=== PATIENT | female | born 1955 | race Caucasian/White ===

== ENCOUNTER 2016-11-06 18:39 | Inpatient (IN) ==
[2016-11-06] MEDS ORDERED: *HR* Dextrose 50 % in Water (Syg) 50 ML SYRINGE IVP ONE (18:46)
[2016-11-06] MEDS ORDERED: *HR* Dextrose 50 % in Water (Syg) 50 ML SYRINGE ONE (18:47)
--- NOTE | 2016-11-06 18:50 | Emergency Department Note ---
Disposition Clinical Impression: Hypoglycemia associated with diabetes Concussion Qualifiers: Encounter type: initial encounter Loss of consciousness presence/duration: with LOC of 30 min or less Qualified Code(s): S06.0X1A - Concussion with loss of consciousness of 30 minutes or less, initial encounter Disposition: Admitted As Inpatient Forms: Work/School Release, ED Satisfaction Letter Altered Mental Status HPI - General Chief Complaint: ED General Medical Stated Complaint: Hypoglycemic Time Seen by Provider: 11/06/16 18:40 Source: EMS Mode of arrival: EMS Limitations: other Nursing Notes Reviewed: Yes Vital Signs Reviewed: Yes - History of Present Illness HPI Narrative: Patient is a 61-year-old female who presents with hypoglycemia. A neighbor was checking on her she was unconscious and fell on the floor. She complains of occipital pain of her scalp otherwise no other complaints. 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 confirmed by: caregiver Pain Severity: moderate Consistency of Symptoms: constant Context: trauma Associated symptoms: Denies: chest pain, cough, fever, seizure - Related Data Home Medications Medication Instructions Recorded Confirmed Albuterol Sulfate [Proair Hfa] 2 puff IH Q6H PRN 02/11/16 04/20/16 Atorvastatin [Lipitor] 40 mg PO HS 02/11/16 04/20/16 Budesonide/Formoterol 160/4.5 2 puff IH BIDR 02/11/16 04/20/16 [Symbicort 160/4.5] Cholecalciferol (D-3) [Vitamin D] 2,000 unit PO DAILY 02/11/16 04/20/16 Collagenase Oint [Santyl] 1 appl TP DAILY 02/11/16 02/11/16 Diltiazem HCl [Tiazac] 360 mg PO DAILY 02/11/16 04/20/16 Escitalopram [Lexapro] 20 mg PO DAILY 02/11/16 04/20/16 Gabapentin [Neurontin] 200 mg PO BID 02/11/16 04/20/16 Gentamicin Oint [Garamycin] 1 appl TP DAILY 02/11/16 02/11/16 Insulin ASPART [Novolog Flexpen] 10 - 24 unit SQ TIDAC 02/11/16 04/20/16 Insulin Glargine,Hum.rec.anlog 30 unit SQ HS 02/11/16 04/20/16 [Lantus Solostar] Insulin Glargine,Hum.rec.anlog 40 unit SQ QAM 02/11/16 04/20/16 [Lantus Solostar] Lamotrigine [Lamictal] 50 mg PO QAM 02/11/16 04/20/16 Losartan Potassium [Cozaar] 100 mg PO DAILY 02/11/16 04/20/16 Paricalcitol [Zemplar] 2 mcg PO DAILY 02/11/16 04/20/16 Cetirizine HCl [Zyrtec] 10 mg PO DAILY 04/20/16 04/20/16 Ferrous Sulfate 325 mg PO BIDWM 04/20/16 04/20/16 Furosemide [Lasix] 40 mg PO BID 04/20/16 04/20/16 Lamotrigine [Lamictal] 25 mg PO HS 04/20/16 04/20/16 Perphenazine 4 mg PO HS 04/20/16 04/20/16 Previous Rx's Medication Instructions Recorded Apixaban [Eliquis] 1 tab PO BID #60 tablet 06/20/16 Albuterol Sulfate [Albuterol 2 puff IH Q4HR #1 inhaler 09/07/16 Inhaler] Azithromycin 250 mg PO DAILY #4 tablet 09/07/16 Promethazine Syrup [Phenergan 12.5 mg PO Q8HR PRN #1 unit 09/07/16 Syrup] Allergies Allergy/AdvReac Type Severity Reaction Status Date / Time acetaminophen [From Percocet] Allergy Hallucinati Verified 10/12/16 22:06 ng adhesive Allergy Rash Verified 08/19/16 09:38 codeine Allergy Rash Verified 08/19/16 09:38 ibuprofen [From Advil] Allergy Rash Verified 08/19/16 09:38 NSAIDS (Non-Steroidal Allergy Rash Verified 10/12/16 22:06 Anti-Inflamma Glucagon AdvReac Confusion Verified 08/19/16 09:38 Oxycodone [From Percocet] AdvReac Hallucinati Verified 08/19/16 09:38 ng All systems ED: reviewed and negative except as stated. Constitutional: Reports: weakness. Denies: fever, chills Gastrointestinal: Denies: nausea, vomiting Past Medical History - Past Medical History Source: patient, old records reviewed, nursing notes reviewed Medical history: Reports: diabetes, renal disease, hypertension, seizures, pulmonary embolus Surgical history: Reports: no surgical history, other Psychiatric history: Reports: anxiety, bipolar, depression BIRTHING NURSE history: Reports: non-contributory - Social History Smoking Status: Never smoker Smokeless Tobacco Status: No Alcohol use: Reports: none, unknown Drug use: Reports: none Physical Exam - General Limitations: other General appearance: alert, in no apparent distress - Head Head exam: other (6cm occipital scalp hematoma) - Eye Eye exam: Present: normal appearance, PERRL, EOMI - Expanded Eye Exam Pupils: Left: reactive - ENT ENT exam: normal exam, normal oropharynx, mucous membranes moist - Expanded ENT Exam External ear exam: Present: normal external inspection Mouth exam: Present: normal external inspection Teeth exam: Present: normal inspection Throat exam: Present: normal inspection - Neck Neck exam: Present: normal inspection, full ROM, trachea midline - Chest Chest inspection: Present: normal inspection, symmetric chest wall rise - Respiratory Respiratory exam: Present: normal lung sounds bilaterally - Cardiovascular Cardiovascular exam: Present: regular rate, normal rhythm, normal heart sounds - Abdominal Exam Abdominal exam: Present: soft, Non-Tender. Absent: tenderness, distention, guarding, rebound, rigidity - Extremities Exam Extremities exam: Present: normal inspection, full ROM. Absent: tenderness, pedal edema - Expanded Upper Extremity Exam Shoulder exam: Present: normal inspection, full ROM Arm exam: Present: normal inspection, full ROM Elbow exam: Present: normal inspection, full ROM Forearm/Wrist exam: Present: normal inspection, full ROM Hand exam: Present: normal inspection, full ROM Vascular exam: Normal: capillary refill, radial pulse - Expanded Lower Extremity Exam Hip/Pelvis exam: Present: normal inspection, full ROM Upper leg exam: Present: normal inspection, full ROM Knee exam: Present: normal inspection, full ROM Lower leg exam: Present: normal inspection, full ROM Ankle exam: Present: normal inspection, full ROM Foot/toe exam: Present: normal inspection, full ROM Neurovascular/Tendon exam: Absent: motor deficit, sensory deficit, tendon deficit - Back Exam Back exam: Present: normal inspection, full ROM. Absent: tenderness - Neurological Exam Neurological exam: Present: alert, oriented X3 - Expanded Neurological Exam Patient oriented to: Present: person, place, time Coma Scale Eye Opening: Spontaneous Coma Scale Motor Response: Obeys Commands Coma Scale Verbal Response: Oriented Coma Scale Total: 15 - Psychiatric Psychiatric exam: Present: normal affect, normal mood - Skin Skin exam: Present: warm, dry, intact, normal color Course Vital Signs Temperature 97.6 F 11/06/16 18:40 Pulse Rate 72 11/06/16 18:40 Respiratory Rate 16 11/06/16 18:40 Blood Pressure 164/79 11/06/16 18:40 O2 Sat by Pulse Oximetry 93 11/06/16 18:40 Temperature 97.6 F 11/06/16 18:40 Pulse Rate 71 11/06/16 20:22 Respiratory Rate 16 11/06/16 20:22 Blood Pressure 146/84 11/06/16 20:22 O2 Sat by Pulse Oximetry 100 11/06/16 20:22 Oxygen Delivery Oxygen Delivery Nasal Cannula Altered Mental Status - Differential Diagnosis Likely: altered mental status, delirium, dementia, hypoglycemia, subarachnoid hemorrhage, substance use - Medical Records Medical records reviewed: Yes I reviewed the patient's medical records. - Lab Data Lab results reviewed: Yes I reviewed the patient's lab results. Result diagrams: 11/06/16 19:43 11/06/16 19:43 Lab Results 11/06/16 11/06/16 11/06/16 Range/Units 18:42 18:51 19:42 WBC (4.3-11.1) K/mcL RBC (3.82-4.97) M/mcL Hgb (11.5-15.4) g/dL Hct (35.3-44.9) % MCV (83.0-100.0) fL MCH (28.0-33.3) pg MCHC (31.6-35.5) g/dL RDW (11.5-14.5) % Plt Count (140-400) K/mcL MPV (9.4-12.4) fL Immature Gran % (0-4) % Seg Neutrophils % % Lymphocytes % % Monocytes % % Eosinophils % % Basophils % % Neutrophils # (1.6-8.9) K/mcL Lymphocytes # (0.6-4.6) K/mcL Monocytes # (0.0-1.3) K/mcL Eosinophils # (0.0-0.6) K/mcL Basophils # (0.0-0.2) K/mcL Sodium (136-145) mEq/L Potassium (3.5-4.5) mEq/L Chloride (98-109) mEq/L Carbon Dioxide (19-29) mEq/L BUN (7-20) mg/dL Creatinine (0.57-1.11) mg/dL Est GFR ( Amer) (> 60) Est GFR (Non-Af Amer) (> 60) BUN/Creatinine Ratio (6-26) Glucose (70-99) mg/dL POC Glucose 35 L* 183 H 96 H (58-89) Calculated Osmolality (280-300) Calcium (8.6-10.8) mg/dL 11/06/16 11/06/16 Range/Units 19:43 19:43 WBC 14.9 H (4.3-11.1) K/mcL RBC 3.95 (3.82-4.97) M/mcL Hgb 10.2 L (11.5-15.4) g/dL Hct 33.2 L (35.3-44.9) % MCV 84.1 (83.0-100.0) fL MCH 25.8 L (28.0-33.3) pg MCHC 30.7 L (31.6-35.5) g/dL RDW 13.2 (11.5-14.5) % Plt Count 322 (140-400) K/mcL MPV 10.4 (9.4-12.4) fL Immature Gran % 0.9 (0-4) % Seg Neutrophils % 80.9 % Lymphocytes % 9.4 % Monocytes % 8.0 % Eosinophils % 0.5 % Basophils % 0.3 % Neutrophils # 12.1 H (1.6-8.9) K/mcL Lymphocytes # 1.4 (0.6-4.6) K/mcL Monocytes # 1.2 (0.0-1.3) K/mcL Eosinophils # 0.1 (0.0-0.6) K/mcL Basophils # 0.0 (0.0-0.2) K/mcL Sodium 140 (136-145) mEq/L Potassium 3.7 (3.5-4.5) mEq/L Chloride 100 (98-109) mEq/L Carbon Dioxide 28 (19-29) mEq/L BUN 31 H (7-20) mg/dL Creatinine 2.19 H (0.57-1.11) mg/dL Est GFR ( Amer) 28 L (> 60) Est GFR (Non-Af Amer) 23 L (> 60) BUN/Creatinine Ratio 14 (6-26) Glucose 87 (70-99) mg/dL POC Glucose (58-89) Calculated Osmolality 296 (280-300) Calcium 9.7 (8.6-10.8) mg/dL - Radiology Data Radiology results reviewed: Yes I reviewed the patient's radiology results. TPA Checklist - LKW: 3-4.5 hrs Add. Contraindications Patient/family understanding: The patient/family members have been counseled and understood the risk, benefit , and alternatives of treatment.
[2016-11-06] MEDS ORDERED: D10% in Water 500 ML IVC SCH (19:00)
[2016-11-06 19:51] LABS: Basophils % 0.3 %; Eosinophils # 0.1 K/mcL (0.0-0.6); Eosinophils % 0.5 %; Hematocrit 33.2 % (35.3-44.9); Hemoglobin 10.2 g/dL (11.5-15.4); Immature Granulocytes % 0.9 % (0-4); Lymphocytes # 1.4 K/mcL (0.6-4.6); Lymphocytes % 9.4 %; Mean Corpuscular HGB Conc 30.7 g/dL (31.6-35.5); Mean Corpuscular Hemoglobin 25.8 pg (28.0-33.3); Mean Corpuscular Volume 84.1 fL (83.0-100.0); Mean Platelet Volume 10.4 fL (9.4-12.4); Monocytes # 1.2 K/mcL (0.0-1.3); Neutrophils # 12.1 K/mcL (1.6-8.9); Platelet Count 322 K/mcL (140-400); Red Blood Count 3.95 M/mcL (3.82-4.97); Red Cell Distribution Width 13.2 % (11.5-14.5); Segmented Neutrophils % 80.9 %
[2016-11-06 20:05] LABS: Calcium 9.7 mg/dL (8.6-10.8); Potassium 3.7 mEq/L (3.5-4.5)
[2016-11-06] MEDS ORDERED: *HR* HYDROcodone/Acet 5/325 mg TABLET PO ONE (20:41)
[2016-11-06] MEDS ORDERED: Ondansetron 4 MG/2 ML VIAL IVP PRN (21:32)
[2016-11-06] MEDS ORDERED: Acetaminophen 325 MG TABLET PO PRN (21:32)
[2016-11-06] MEDS ORDERED: Naloxone 0.4 MG/ML INJ IVP PRN (21:32)
[2016-11-06] MEDS ORDERED: Dextrose Gel 15 GM PO PRN ×2 (21:38)
[2016-11-06] MEDS ORDERED: D5% in Water 1,000 ML IVC PRN (21:38)
[2016-11-06] MEDS ORDERED: *HR* Dextrose 50 % in Water (Syg) 50 ML SYRINGE IVP PRN (21:38)
--- NOTE | 2016-11-06 21:41 | Event Note ---
Date of Encounter: 11/06/16 Time of Encounter: 21:38 1) severe hypoglycemia may use D10, D50 prn may restart 75 % of her insulin in the morning low insulin sliding scale 2) Occipital scalp hematoma hold Eliquis tonight, may restart in the monring 3) Severe headache will have a low threshold to repeat CT head 4) CKD3 close to baseline 5) Hx of DVT and PE admit for observation , TIme spent 40 min NOte to be written by LUL aClvo
--- NOTE | 2016-11-06 21:47 | Internal Med History&Physical ---
<Opal Calvo - Last Filed: 11/06/16 22:21> Date of Encounter: 11/06/16 Time of Encounter: 21:44 Assessment and Plan (1) Hypoglycemia associated with diabetes Current visit: Yes Status: Acute Patient with multiple recent episodes of hypoglycemia and hyperglycemia. She reports today her blood sugar was 328 1 hour prior to her hypoglycemic episode and she took only 4u of short acting insulin. Check blood sugars Q4hr Low dose sliding scale Q4 hr reduced long-acting doses Will have clinical educator speak to her to assess if she is confusing her insulins or doses. (2) Concussion Current visit: Yes Status: Acute Patient was found on the floor in her kitchen by her neighbor. She reports she went to the kitchen to get something to eat and does not remember what happened. She has a headache with photosensitivity. CT Head shows no Acute intracranial abnormality, soft tissue hematoma overlying posterior right skull. Patient is on Eliquis for history of PE. Will hold tonight's dose. Neuro check Q4 hours and consider repeat CT if any deterioration. Qualifiers: Encounter type: initial encounter Loss of consciousness presence/duration: with LOC of 30 min or less Qualified Code(s): S06.0X1A - Concussion with loss of consciousness of 30 minutes or less, initial encounter (3) CKD (chronic kidney disease), stage IV Current visit: No Status: Acute BUN/Cr of 31/2.19 consistent with baseline kidney function avoid NSAIDs and nephrotoxins recheck chemistry in the morning. (4) HTN (hypertension) Current visit: No Status: Acute Continue home doses of losartan, lasix and diltiazem. Qualifiers: Hypertension type: essential hypertension Qualified Code(s): I10 - Essential (primary) hypertension (5) Type 2 diabetes mellitus Current visit: Yes Status: Acute diabetic diet check blood sugars Q4hr Hold basal dose of insulin tonight due to episode of hypoglycemia today Reduced basal doses starting tomorrow: 30u Levemir Q AM, 22u of Levemir HS Low dose sliding scale correction insulin Q4hr hypoglycemic protocol clinical educator consulted. Qualifiers: Diabetes mellitus complication status: with kidney complications Diabetes mellitus complication detail: with chronic kidney disease Diabetes mellitus alf insulin use: with alf use Chronic kidney disease stage: stage 4 (severe) Qualified Code(s): E11.22 - Type 2 diabetes mellitus with diabetic chronic kidney disease; N18.4 - Chronic kidney disease, stage 4 (severe); Z79.4 - MCFP (current) use of insulin (6) DVT prophylaxis Current visit: No Status: Acute anti-embolic stockings Patient on Eliquis for history of PE, Holding tonights dose due to head injury and will restart tomorrow morning. Additional pharmacologic prophylaxis is not indicated. Internal Medicine - H&P: HPI Chief complaint: fall, hypoglycemia Admitted From: Emergency Dept Plans for Post Hospital Care: Home History of present illness: Ms. Valladares is a 61 year old female with hypertension, chronic kidney disease, diabetes, history of DVT and PE who presented to the emergency department today after her neighbor checked on her and found her on the floor in her kitchen. Patient reports that she went into her kitchen to get something to eat because she could feel that her blood sugar was low and she does not remember what happened. Her blood sugar was 35 on arrival. Patient has been having multiple episodes of hypoglycemia over the last couple of weeks. She reports an hour prior to the incident her blood sugar was 328, and she only took 4 units of insulin at that time. She reports a headache, light sensitivity. She denies any chest pain, palpitations, shortness of breath. She denies any fever, chills , sweats, dysuria, cough. Evaluation in the emergency department included a head CT which showed no acute intracranial abnormality, soft tissue hematoma overlying the posterior right skull. Cervical spine CT showed no acute abnormality of the spine. White blood cell count was elevated at 14.9. BUN and creatinine were elevated consistent with her diagnosis of chronic kidney disease. On exam, patient was alert and oriented, complaining of headache and covering her eyes from the light. Heart had regular rate and rhythm, lungs were clear bilaterally to auscultation, bilateral lower extremity edema. Past Med Surg Social Fam HX - Past Medical History Medical history: diabetes, hypertension, pulmonary embolus, renal disease, seizures Psychiatric history: anxiety, bipolar, depression - Past Surgical History Surgical History: orthopedic, other, other - Social History Smoking Status: Never smoker Smokeless Tobacco Status: No Alcohol use: none, unknown Drug use: none - Family History Mother Living Status: Father Living Status: Internal Medicine - H&P: Meds Albuterol Sulfate [Proair Hfa] 2 puff IH Q6H PRN 02/11/16 [History] Atorvastatin [Lipitor] 40 mg PO HS 02/11/16 [History] Budesonide/Formoterol 160/4.5 [Symbicort 160/4.5] 2 puff IH BIDR 02/11/16 [ History] Cholecalciferol (D-3) [Vitamin D] 2,000 unit PO DAILY 02/11/16 [History] Collagenase Oint [Santyl] 1 appl TP DAILY 02/11/16 [History] Diltiazem HCl [Tiazac] 360 mg PO DAILY 02/11/16 [History] Escitalopram [Lexapro] 20 mg PO DAILY 02/11/16 [History] Gabapentin [Neurontin] 200 mg PO BID 02/11/16 [History] Gentamicin Oint [Garamycin] 1 appl TP DAILY 02/11/16 [History] Insulin ASPART [Novolog Flexpen] 10 - 24 unit SQ TIDAC 02/11/16 [History] Insulin Glargine,Hum.rec.anlog [Lantus Solostar] 30 unit SQ HS 02/11/16 [History ] Insulin Glargine,Hum.rec.anlog [Lantus Solostar] 40 unit SQ QAM 02/11/16 [ History] Lamotrigine [Lamictal] 50 mg PO QAM 02/11/16 [History] Losartan Potassium [Cozaar] 100 mg PO DAILY 02/11/16 [History] Paricalcitol [Zemplar] 2 mcg PO DAILY 02/11/16 [History] Cetirizine HCl [Zyrtec] 10 mg PO DAILY 04/20/16 [History] Ferrous Sulfate 325 mg PO BIDWM 04/20/16 [History] Furosemide [Lasix] 40 mg PO BID 04/20/16 [History] Lamotrigine [Lamictal] 25 mg PO HS 04/20/16 [History] Perphenazine 4 mg PO HS 04/20/16 [History] Apixaban [Eliquis] 1 tab PO BID #60 tablet 06/20/16 [Rx] Albuterol Sulfate [Albuterol Inhaler] 2 puff IH Q4HR #1 inhaler 09/07/16 [Rx] Azithromycin 250 mg PO DAILY #4 tablet 02/22/17 [Rx] Promethazine Syrup [Phenergan Syrup] 12.5 mg PO Q8HR PRN #1 unit 09/07/16 [Rx] Allergies acetaminophen [From Percocet] Allergy (Verified 10/12/16 22:06) Hallucinating adhesive Allergy (Verified 08/19/16 09:38) Rash codeine Allergy (Verified 08/19/16 09:38) Rash ibuprofen [From Advil] Allergy (Verified 08/19/16 09:38) Rash NSAIDS (Non-Steroidal Anti-Inflamma Allergy (Verified 10/12/16 22:06) Rash Glucagon Adverse Reaction (Verified 08/19/16 09:38) Confusion Oxycodone [From Percocet] Adverse Reaction (Verified 08/19/16 09:38) Hallucinating All Systems PM: A 10-system review of systems was performed and is negative for pertinent findings except as documented above in the HPI. - Constitutional Constitutional: no chills, no fever(s), no night sweats - EENT Eyes: photophobia, no change in vision, no discharge, no pain Ears: no ear discharge, no ear pain, no tinnitus Nose, mouth and throat: no dysphagia, no nasal discharge, no neck pain, no sore throat - Cardiovascular Cardiovascular ROS IM: no chest pain, no diaphoresis, no dyspnea, no lightheadedness, no palpitations, no syncope - Respiratory Respiratory: no cough, no dyspnea, no wheezing, no excessive phlegm production - Gastrointestinal Gastrointestinal: no abdominal pain, no diarrhea, no hematemesis, no hematochezia, no melena, no nausea, no vomiting - Genitourinary Genitourinary: no change in urinary stream, no dysuria, no flank pain, no hematuria - Musculoskeletal Musculoskeletal ROS IM: no numbness, no tingling - Integumentary Integumentary IM: no rash, no unusual bruising - Neurological Neurological ROS: headache(s), no confusion, no convulsions, no focal weakness, no numbness, no tingling, no tremor(s) - Hematologic/Lymphatic Hematologic/Lymphatic: no easy bruising - Constitutional Vitals: Temp Pulse Resp BP Pulse Ox 97.6 F 71 16 142/54 100 11/06/16 18:40 11/06/16 20:22 11/06/16 21:10 11/06/16 21:10 11/06/16 20:22 General appearance: Present: A&O X 3, morbidly obese, pleasant - Head Head exam: Present: normocephalic Additional comments: hematoma on right occiput - Eye Eye exam: Present: PERRL, conjuntiva pink, sclera anicteric Pupils: Present: PERRL - Neck Neck exam general surgery: Present: supple, trachea midline. Absent: lymphadenopathy - Respiratory Respiratory exam: Present: CTAB. Absent: accessory muscle use, rales, rhonchi, wheezes - Cardiovascular Cardiovascular exam: Present: RRR, +S1, +S2. Absent: diastolic murmur, gallop, rubs, systolic murmur - GI/Abdominal GI/Abdominal exam: Present: normal bowel sounds, soft, no peritoneal signs. Absent: distended, tenderness - Extremities Exam Extremities exam: Present: pedal edema (BLE edema), warm, radial pulses palpable and symetrical. Absent: calf tenderness, cyanotic - Neurological Exam Neurological exam: Present: CN II-XII intact, oriented X3, no focal deficits. Absent: pronater drift, facial droop, speech deficit - Skin Skin exam: Present: dry, intact Internal Med - H&P Results - Labs CBC & Chem 7: 11/06/16 19:43 11/06/16 19:43 Labs: All Lab Results (24 Hours) 11/06/16 11/06/16 11/06/16 Range/Units 18:42 18:51 19:42 WBC (4.3-11.1) K/mcL RBC (3.82-4.97) M/mcL Hgb (11.5-15.4) g/dL Hct (35.3-44.9) % MCV (83.0-100.0) fL MCH (28.0-33.3) pg MCHC (31.6-35.5) g/dL RDW (11.5-14.5) % Plt Count (140-400) K/mcL MPV (9.4-12.4) fL Immature Gran % (0-4) % Seg Neutrophils % % Lymphocytes % % Monocytes % % Eosinophils % % Basophils % % Neutrophils # (1.6-8.9) K/mcL Lymphocytes # (0.6-4.6) K/mcL Monocytes # (0.0-1.3) K/mcL Eosinophils # (0.0-0.6) K/mcL Basophils # (0.0-0.2) K/mcL Sodium (136-145) mEq/L Potassium (3.5-4.5) mEq/L Chloride (98-109) mEq/L Carbon Dioxide (19-29) mEq/L BUN (7-20) mg/dL Creatinine (0.57-1.11) mg/dL Est GFR ( Amer) (> 60) Est GFR (Non-Af Amer) (> 60) BUN/Creatinine Ratio (6-26) Glucose (70-99) mg/dL POC Glucose 35 L* 183 H 96 H (58-89) Calculated Osmolality (280-300) Calcium (8.6-10.8) mg/dL 11/06/16 11/06/16 11/06/16 Range/Units 19:43 19:43 20:38 WBC 14.9 H (4.3-11.1) K/mcL RBC 3.95 (3.82-4.97) M/mcL Hgb 10.2 L (11.5-15.4) g/dL Hct 33.2 L (35.3-44.9) % MCV 84.1 (83.0-100.0) fL MCH 25.8 L (28.0-33.3) pg MCHC 30.7 L (31.6-35.5) g/dL RDW 13.2 (11.5-14.5) % Plt Count 322 (140-400) K/mcL MPV 10.4 (9.4-12.4) fL Immature Gran % 0.9 (0-4) % Seg Neutrophils % 80.9 % Lymphocytes % 9.4 % Monocytes % 8.0 % Eosinophils % 0.5 % Basophils % 0.3 % Neutrophils # 12.1 H (1.6-8.9) K/mcL Lymphocytes # 1.4 (0.6-4.6) K/mcL Monocytes # 1.2 (0.0-1.3) K/mcL Eosinophils # 0.1 (0.0-0.6) K/mcL Basophils # 0.0 (0.0-0.2) K/mcL Sodium 140 (136-145) mEq/L Potassium 3.7 (3.5-4.5) mEq/L Chloride 100 (98-109) mEq/L Carbon Dioxide 28 (19-29) mEq/L BUN 31 H (7-20) mg/dL Creatinine 2.19 H (0.57-1.11) mg/dL Est GFR ( Amer) 28 L (> 60) Est GFR (Non-Af Amer) 23 L (> 60) BUN/Creatinine Ratio 14 (6-26) Glucose 87 (70-99) mg/dL POC Glucose 136 H (58-89) Calculated Osmolality 296 (280-300) Calcium 9.7 (8.6-10.8) mg/dL - Diagnostic Studies CT scan - head Additional comments: Head CT 11/06/16 18:53 IMPRESSION: No acute intracranial abnormality. Soft tissue hematoma overlying the posterior right skull. D/ / Aleyda Grajeda MD / Aleyda Grajeda MD Interpreting Provider: Aleyda Grajeda MD Other Images Additional comments: Cervical Spine CT 11/06/16 18:53 IMPRESSION: No acute abnormality of the cervical spine. D/ / Franky Silveira MD / Franky Silveira MD Interpreting Provider: Franky Silveira MD <Heber Henderson H - Last Filed: 11/06/16 22:53> Date of Encounter: 11/06/16 Internal Medicine - H&P: HPI History of present illness: Ms. Valladares is a 61 year old female All Systems PM: A 10-system review of systems was performed and is negative for pertinent findings except as documented above in the HPI. - Constitutional Vitals: Temp Pulse Resp BP Pulse Ox 98.3 F 71 18 116/70 94 11/06/16 22:33 11/06/16 22:33 11/06/16 22:33 11/06/16 22:33 11/06/16 22:33 Internal Med - H&P Results - Labs CBC & Chem 7: 11/06/16 19:43 11/06/16 19:43 - Attending Attestation 1) severe hypoglycemia, unintentional insulin overdose? requires DM educator consult may use D10, D50 prn may restart 75 % of her insulin in the morning low insulin sliding scale 2) Occipital scalp hematoma hold Eliquis tonight, may restart in the monring 3) Severe headache will have a low threshold to repeat CT head 4) CKD3 close to baseline 5) Hx of DVT and PE admit for observation , TIme spent 40 min I examined this patient and my medical decision-making was reviewed with the ELECTRONIC COMMUNICATIONS TECHNICIAN/PA/Advanced Practice Nurse/Resident Physician. I agree with the documented findings, disposition and treatment plan as described except to the extent set forth below.
[2016-11-06] MEDS: Budesonide/Formoterol 160/4.5 MDI IH SCH (22:15)
[2016-11-06] MEDS: *HR* HYDROcodone/Acet 5/325 mg TABLET PO PRN (23:03)
[2016-11-07] MEDS: Insulin LISPRO 300 UNITS/3 ML VIAL SQ SCH ×4 (01:05→12:20)
[2016-11-07 04:36] LABS: Basophils % 0.3 %; Eosinophils # 0.1 K/mcL (0.0-0.6); Eosinophils % 0.7 %; Hematocrit 29.6 % (35.3-44.9); Hemoglobin 8.9 g/dL (11.5-15.4); Immature Granulocytes % 0.4 % (0-4); Lymphocytes # 2.2 K/mcL (0.6-4.6); Lymphocytes % 18.2 %; Mean Corpuscular HGB Conc 30.1 g/dL (31.6-35.5); Mean Corpuscular Hemoglobin 25.8 pg (28.0-33.3); Mean Corpuscular Volume 85.8 fL (83.0-100.0); Monocytes # 0.9 K/mcL (0.0-1.3); Monocytes % 7.2 %; Neutrophils # 8.9 K/mcL (1.6-8.9); Platelet Count 294 K/mcL (140-400); Red Blood Count 3.45 M/mcL (3.82-4.97); Red Cell Distribution Width 13.5 % (11.5-14.5); Segmented Neutrophils % 73.2 %
[2016-11-07 04:48] LABS: Calcium 9.1 mg/dL (8.6-10.8); Potassium 3.8 mEq/L (3.5-4.5)
[2016-11-07] MEDS: Budesonide/Formoterol 160/4.5 MDI IH SCH (07:58)
[2016-11-07] MEDS ORDERED: Furosemide 40 MG TABLET PO SCH (08:00)
[2016-11-07] MEDS: *HR* HYDROcodone/Acet 5/325 mg TABLET PO PRN (08:34)
[2016-11-07] MEDS ORDERED: lamoTRIgine 25 MG TABLET PO SCH ×2 (09:00→21:00)
[2016-11-07] MEDS ORDERED: APIXABAN 2.5 MG TABLET PO SCH (09:00)
[2016-11-07] MEDS ORDERED: Diltiazem CD (24hr) 180 MG CAPSULE PO SCH (09:00)
[2016-11-07] MEDS ORDERED: Insulin DETEMIR 100 UNIT/ML X5UNITS SQ SCH ×2 (09:00→21:00)
[2016-11-07 15:13] VITALS: BP 106/69
[2016-11-07 15:52] LABS: Basophils # 0.1 K/mcL (0.0-0.2); Basophils % 0.5 %; Eosinophils # 0.2 K/mcL (0.0-0.6); Eosinophils % 1.6 %; Hematocrit 31.6 % (35.3-44.9); Hemoglobin 9.7 g/dL (11.5-15.4); Immature Granulocytes % 1.4 % (0-4); Lymphocytes # 2.1 K/mcL (0.6-4.6); Lymphocytes % 22.1 %; Mean Corpuscular HGB Conc 30.7 g/dL (31.6-35.5); Mean Corpuscular Hemoglobin 25.9 pg (28.0-33.3); Mean Corpuscular Volume 84.3 fL (83.0-100.0); Monocytes # 0.9 K/mcL (0.0-1.3); Monocytes % 9.5 %; Neutrophils # 6.2 K/mcL (1.6-8.9); Nucleated Red Blood Cells 0.2 /100 WBC (0); Platelet Count 301 K/mcL (140-400); Red Blood Count 3.75 M/mcL (3.82-4.97); Red Cell Distribution Width 13.5 % (11.5-14.5); Segmented Neutrophils % 64.9 %
[2016-11-07 16:05] LABS: Calcium 9.3 mg/dL (8.6-10.8); Potassium 4.4 mEq/L (3.5-4.5)
[2016-11-07 16:15] LABS: Hemoglobin A1C 8.9 %
--- NOTE | 2016-11-07 16:56 | Discharge Summary ---
Date of Encounter: 11/07/16 Time of Encounter: 16:53 - Discharge Diagnosis (1) Hypoglycemia associated with diabetes Priority: Primary Status: Acute (2) Concussion Priority: Primary Status: Acute Qualifiers: Encounter type: subsequent encounter Loss of consciousness presence/ duration: with LOC of 30 min or less Qualified Code(s): S06.0X1D - Concussion with loss of consciousness of 30 minutes or less, subsequent encounter (3) CKD (chronic kidney disease), stage IV Priority: Secondary Status: Chronic (4) HTN (hypertension) Priority: Secondary Status: Chronic Qualifiers: Hypertension type: essential hypertension Qualified Code(s): I10 - Essential (primary) hypertension (5) Obesity (BMI 30-39.9) Priority: Secondary Status: Chronic (6) Type 2 diabetes mellitus Priority: Secondary Status: Chronic Qualifiers: Diabetes mellitus complication status: with kidney complications Diabetes mellitus complication detail: with chronic kidney disease Diabetes mellitus usp insulin use: with meterman use Chronic kidney disease stage: stage 4 (severe) Qualified Code(s): E11.22 - Type 2 diabetes mellitus with diabetic chronic kidney disease; N18.4 - Chronic kidney disease, stage 4 (severe); Z79.4 - 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 of insulin - Discharge Medications Home Medications: Albuterol Sulfate [Proair Hfa] 2 puff IH Q6H PRN 02/11/16 [History] Atorvastatin [Lipitor] 40 mg PO HS 02/11/16 [History] Budesonide/Formoterol 160/4.5 [Symbicort 160/4.5] 2 puff IH BIDR 02/11/16 [ History] Cholecalciferol (D-3) [Vitamin D] 2,000 unit PO DAILY 02/11/16 [History] Diltiazem HCl [Tiazac] 360 mg PO DAILY 02/11/16 [History] Escitalopram [Lexapro] 20 mg PO DAILY 02/11/16 [History] Gabapentin [Neurontin] 200 mg PO BID 02/11/16 [History] Insulin ASPART [Novolog Flexpen] 10 - 24 unit SQ TIDAC MDD per sliding scale [History] Insulin Glargine,Hum.rec.anlog [Lantus Solostar] 41 unit SQ HS 02/11/16 [History ] Insulin Glargine,Hum.rec.anlog [Lantus Solostar] 41 unit SQ QAM 02/11/16 [ History] Lamotrigine [Lamictal] 50 mg PO QAM 02/11/16 [History] Losartan Potassium [Cozaar] 100 mg PO DAILY 02/11/16 [History] Paricalcitol [Zemplar] 2 mcg PO DAILY 02/11/16 [History] Cetirizine HCl [Zyrtec] 10 mg PO DAILY 04/20/16 [History] Ferrous Sulfate 325 mg PO BIDWM 04/20/16 [History] Furosemide [Lasix] 40 mg PO BID 04/20/16 [History] Lamotrigine [Lamictal] 25 mg PO HS 04/20/16 [History] Perphenazine 4 mg PO HS 04/20/16 [History] Albuterol Sulfate [Albuterol Inhaler] 2 puff IH Q4HR #1 inhaler 09/07/16 [Rx] Azithromycin 250 mg PO DAILY #4 tablet 09/07/16 [Rx] Apixaban [Eliquis] 2.5 mg PO BID #0 11/07/16 [Rx] Allergies/Adverse Reactions: Allergies acetaminophen [From Percocet] Allergy (Verified 10/12/16 22:06) Hallucinating adhesive Allergy (Verified 08/19/16 09:38) Rash codeine Allergy (Verified 08/19/16 09:38) Rash ibuprofen [From Advil] Allergy (Verified 08/19/16 09:38) Rash NSAIDS (Non-Steroidal Anti-Inflamma Allergy (Verified 10/12/16 22:06) Rash Glucagon Adverse Reaction (Verified 08/19/16 09:38) Confusion Oxycodone [From Percocet] Adverse Reaction (Verified 08/19/16 09:38) Hallucinating Procedures/tests Complete & Pending: Procedures Performed prior 72 hours Category Date Time Status ECG 12 lead ECG [ECG] Routine Y 11/06/16 Completed Date of admission: 11/06/16 21:32 Primary care physician: Ariel Funes MD Consults: 11/06/16 21:59 Consult to Er Rn [CONS] Routine Comment: episodes of hypoglycemia 11/07/16 12:35 Consult to Collections Professional [CONS] Routine Reason for SW Consult: d/c planing (life alert) Discharging clinician: Arianna Nguyễn Anticipated date of discharge: 11/07/16 - Patient Status Disposition: Home, Self-Care Condition: Fair Functional capacity at discharge: uses cane/walker Overall status at discharge: patient is progressing back to baseline - Discharge Instructions Instructions: Diabetes Mellitus Type 2 in Adults (DC) Follow Up With: Ariel Funes MD [Primary Care Provider] - - Diet and Activity Activity: resume usual activities as tolerated Diet: diabetic diet, low fat, low cholesterol, low salt diet Hospital course: Ms. Valladares is a 61 year old female with the above medical problems, admitted with hypoglycemia and syncope with mild head injury. CT head showed no acute bleed or fracture but right posterior scalp hematoma. 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 Her mental status returned to baseline and she reports some subjective blurred vision but finger counting B/L is noted to be normal, and no nausea/vomiting/encephalopathy/drowsiness on examination. Labs are repeated and no drop in Hb is noted. Her blood sugars remained stable since admission and she does require insulin. nutrition educator consulted and patient is noted to duplicate her short-acting insulin injections and she received education regarding this. She is now medically stable for discharge. - Time Spent with Patient Total time spent providing and/or coordinating discharge services: Greater than 30 minutes (45 min) - Constitutional Vitals: Temp Pulse Resp BP Pulse Ox 97.9 F 66 16 106/69 96 11/07/16 15:12 11/07/16 15:12 11/07/16 15:12 11/07/16 15:12 11/07/16 15:12 General appearance: Present: A&O X 3, obese, answers questions appropriately - Eye Eye exam: Present: PERRL, conjuntiva pink, sclera anicteric Pupils: Present: PERRL - Respiratory Respiratory exam: Present: CTAB. Absent: accessory muscle use, rales, rhonchi, wheezes - Cardiovascular Cardiovascular exam: Present: RRR, +S1, +S2. Absent: diastolic murmur, gallop, rubs, systolic murmur - GI/Abdominal GI/Abdominal exam: Present: normal bowel sounds, soft, no peritoneal signs. Absent: distended, tenderness - Neurological Exam Neurological exam: Present: CN II-XII intact (normal finger counting at 6ft B/L) , oriented X3, no focal deficits. Absent: pronater drift, facial droop, speech deficit
--- NOTE | 2016-11-07 19:32 | Electrocardiograph Report ---
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
== END 2016-11-07 18:09 | disposition home or self-care (01) | DRG 638 ==
LOC: EMEROO 18:39 → 3BNU 18:39 → SUATTDRO 21:32 → 3BNU 21:52
PROVIDERS: ADMIT Internal Medicine; ATTEND Internal Medicine

== ENCOUNTER 2017-10-30 09:58 | Observation (INO) ==
--- NOTE | 2017-10-30 10:12 | Emergency Department Note ---
Disposition Clinical Impression: Chest pain Qualifiers: Chest pain type: unspecified Qualified Code(s): R07.9 - Chest pain, unspecified Disposition: Admitted As Inpatient Referrals: Ariel Funes MD [Primary Care Provider] - Forms: ED Satisfaction Letter Time of Disposition: 13:26 Chest Pain HPI - General Chief Complaint: ED Chest Pain Stated Complaint: chest pain Time Seen by Provider: 10/30/17 10:04 Source: patient, EMS Mode of arrival: ambulatory Limitations: no limitations Vital Signs Reviewed: Yes Nursing Notes Reviewed: Yes - History of Present Illness HPI Narrative: 62-year-old female who is at a [facility] fracture is on Eliquis and was doing chest pulls and developed chest pain right side across her anterior chest. Patient has no history of heart problems. Does have a history of blood clots. 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 Onset: during exertion Pain Location: substernal, right chest Severity: moderate Pain Radiation: none Improves with: rest Worsens with: exertion Associated symptoms: Reports: nausea Treatments prior to arrival chest pain: none - Related Data Home Medications Medication Instructions Recorded Confirmed Albuterol Sulfate [Proair Hfa] 2 puff IH Q6H PRN 02/11/16 07/13/17 Atorvastatin [Lipitor] 40 mg PO HS 02/11/16 07/13/17 Budesonide/Formoterol 160/4.5 2 puff IH BIDR 02/11/16 07/13/17 [Symbicort 160/4.5] Cholecalciferol (D-3) [Vitamin D] 2,000 unit PO DAILY 02/11/16 07/13/17 Escitalopram [Lexapro] 20 mg PO DAILY 02/11/16 07/13/17 Gabapentin [Neurontin] 200 mg PO BID 02/11/16 07/13/17 Insulin ASPART [Novolog Flexpen] 10 - 24 unit SQ TIDAC MDD per 02/11/16 07/13/17 sliding scale Insulin Glargine,Hum.rec.anlog 41 unit SQ BID 02/11/16 07/13/17 [Lantus Solostar] Losartan Potassium [Cozaar] 100 mg PO DAILY 02/11/16 07/13/17 Paricalcitol [Zemplar] 2 mcg PO DAILY 02/11/16 07/13/17 lamoTRIgine [Lamictal] 50 mg PO QAM 02/11/16 07/13/17 Cetirizine HCl [Zyrtec] 10 mg PO DAILY 04/20/16 07/13/17 Ferrous Sulfate 325 mg PO BIDWM 04/20/16 07/13/17 Furosemide [Lasix] 40 mg PO BID 04/20/16 07/13/17 Perphenazine 4 mg PO HS 04/20/16 07/13/17 lamoTRIgine [Lamictal] 25 mg PO HS 04/20/16 07/13/17 Previous Rx's Medication Instructions Recorded Apixaban [Eliquis] 2.5 mg PO BID #60 tablet 05/22/17 Clindamycin HCl 300 mg PO Q6H 7 Days #28 capsule 07/17/17 Clindamycin [Cleocin] 300 mg IM Q6H 7 Days #28 mls 07/17/17 Docusate [Colace] 100 mg PO BID capsule 07/17/17 HYDROcodone/Acet 5/325 mg [[place] 1 tab PO Q6HR PRN #30 tablet 07/17/17 5-325 mg] Nystatin POWDER [Nystop] 1 appl TP BID PRN #1 bottle 07/17/17 Tamsulosin [Flomax] 0.4 mg PO DAILY #7 capsule 07/17/17 Glucagon,Human Recombinant 1 mg IJ ONCE #1 kit 08/03/17 [Glucagon Emergency Kit] cephALEXin [Keflex] 500 mg PO BID #14 capsule 10/04/17 Allergies Allergy/AdvReac Type Severity Reaction Status Date / Time acetaminophen [From Percocet] Allergy Hallucinati Verified 08/03/17 12:16 ng adhesive Allergy Rash Verified 08/03/17 12:16 codeine Allergy Rash Verified 08/03/17 12:16 ibuprofen [From Advil] Allergy Rash Verified 08/03/17 12:16 NSAIDS (Non-Steroidal Allergy Rash Verified 08/03/17 12:16 Anti-Inflamma Glucagon AdvReac Confusion Verified 08/03/17 12:16 Oxycodone [From Percocet] AdvReac Hallucinati Verified 08/03/17 12:16 ng All systems ED: reviewed and negative except as stated. Constitutional: Denies: fever, chills, weakness, weight change Eyes: Denies: eye pain, eye discharge, vision change ENT ED: Denies: ear pain, throat pain, dental pain, hearing loss, epistaxis, congestion, dysphagia Cardiovascular: Reports: chest pain. Denies: palpitations, dyspnea on exertion , edema, syncope Respiratory: Denies: cough, dyspnea, wheezes, hemoptysis, stridor Gastrointestinal: Denies: abdominal pain, nausea, vomiting, diarrhea, constipation, hematemesis, melena, hematochezia Genitourinary: Denies: dysuria, frequency, hematuria, discharge Musculoskeletal: Denies: back pain, neck pain, arthralgia, myalgia Integumentary: Denies: rash, abrasion, lesions Neurological: Denies: headache, weakness, numbness, paresthesias, confusion, abnormal gait, vertigo Psychiatric: Denies: anxiety, depression, suicidal thoughts, homicidal thoughts , auditory hallucinations, visual hallucinations Endocrine: Denies: fatigue Hematological/Lymphatic: Denies: easy bleeding, easy bruising Allergic/Immunologic: Denies: facial swelling, urticaria Chest Pain PMH - Past Medical History Medical history: Reports: DVT, diabetes, hypertension, renal disease Surgical history: Reports: orthopedic, other, other Psychiatric history: Reports: anxiety, bipolar, depression 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 - Social History Smoking Status: Never smoker Alcohol use: Reports: none Drug use: Reports: none Physical Exam - General Limitations: no limitations General appearance: alert, in no apparent distress - Head Head exam: atraumatic, normocephalic, normal inspection - Eye Eye exam: Present: normal appearance, PERRL, EOMI - ENT ENT exam: normal exam, normal oropharynx, mucous membranes moist - Neck Neck exam: Present: normal inspection, full ROM, trachea midline - Chest Chest inspection: Present: normal inspection, symmetric chest wall rise - Respiratory Respiratory exam: Present: normal lung sounds bilaterally - Cardiovascular Cardiovascular exam: Present: regular rate, normal rhythm, normal heart sounds - Abdominal Exam Abdominal exam: Present: soft, Non-Tender. Absent: tenderness, distention, guarding, rebound, rigidity - Extremities Exam Extremities exam: Present: normal inspection, full ROM. Absent: tenderness, pedal edema - Expanded Lower Extremity Exam Neurovascular/Tendon exam: Absent: motor deficit, sensory deficit, tendon deficit Gait: observed and normal - Back Exam Back exam: Present: normal inspection, full ROM. Absent: tenderness - Neurological Exam Neurological exam: Present: alert, oriented X3 - Psychiatric Psychiatric exam: Present: normal affect, normal mood - Skin Skin exam: Present: warm, dry, intact, normal color Course - Reevaluation(s) Reevaluation #1: 62-year-old exerted himself and rehabilitation developed some chest pain. Has a history of blood clots is on Elquis. D-dimer and VQ scan are negative for acute embolism. She will be admitted for rule out. Time: 13:25 - Consultations Consultation #1: Discussed with Dr. Orozco, admit. Time: 13:25 Vital Signs Temperature 0 F L 10/30/17 09:59 Pulse Rate 0 10/30/17 09:59 Respiratory Rate 0 10/30/17 09:59 Blood Pressure 0/0 10/30/17 09:59 O2 Sat by Pulse Oximetry 0 10/30/17 09:59 Temperature 98 F 10/30/17 10:06 Pulse Rate 74 10/30/17 12:40 Respiratory Rate 16 10/30/17 12:40 Blood Pressure 142/75 10/30/17 12:40 O2 Sat by Pulse Oximetry 95 10/30/17 12:40 Oxygen Delivery Oxygen Delivery Room Air Chest Pain - Lab Data Lab results reviewed: Yes I reviewed the patient's lab results. Result diagrams: 10/30/17 10:36 10/30/17 10:36 Lab Results 10/30/17 10/30/17 10/30/17 Range/Units 10:36 10:36 10:36 WBC 9.3 (4.3-11.1) K/mcL RBC 3.75 L (3.82-4.97) M/mcL Hgb 9.6 L (11.5-15.4) g/dL Hct 31.1 L (35.3-44.9) % MCV 82.9 L (83.0-100.0) fL MCH 25.6 L (28.0-33.3) pg MCHC 30.9 L (31.6-35.5) g/dL RDW 13.2 (11.5-14.5) % Plt Count 313 (140-400) K/mcL MPV 10.6 (9.4-12.4) fL Immature Gran % 0.3 (0-4) % Seg Neutrophils % 70.3 % Lymphocytes % 17.5 % Monocytes % 8.7 % Eosinophils % 2.8 % Basophils % 0.4 % Neutrophils # 6.6 (1.6-8.9) K/mcL Lymphocytes # 1.6 (0.6-4.6) K/mcL Monocytes # 0.8 (0.0-1.3) K/mcL Eosinophils # 0.3 (0.0-0.6) K/mcL Basophils # 0.0 (0.0-0.2) K/mcL PT 13.5 H (9.4-12.1) Seconds INR 1.2 APTT 36.8 H (26.0-36.0) Seconds D-Dimer 425 (0-500) ng/mLFEU Sodium 138 (136-145) mEq/L Potassium 4.6 (3.5-5.1) mEq/L Chloride 99 (98-107) mEq/L Carbon Dioxide 29 (23-29) mEq/L BUN 42 H (8-23) mg/dL Creatinine 2.20 H (0.60-1.20) mg/dL Est GFR ( Amer) 27 L (> 60) Est GFR (Non-Af Amer) 23 L (> 60) BUN/Creatinine Ratio 19 (6-26) Glucose 240 H (70-105) mg/dL Calculated Osmolality 304 H (280-300) Calcium 9.4 (8.6-10.3) mg/dL Troponin I < 0.03 (< 0.04) ng/mL - Radiology Data Radiology results reviewed: Yes I reviewed the patient's radiology results. Chest X-Ray 10/30/17 10:05 IMPRESSION: No acute process. Bibasilar hypoaeration again noted D/ / Franky Silveira MD / Franky Silveira MD Interpreting Provider: Franky Silveira MD Pulmonary Perfusion Imaging 10/30/17 10:07 IMPRESSION: Normal perfusion study, considered negative for pulmonary embolism. Of note, the ventilation study is also normal. D/ / Franky Slater MD / Franky Slater MD Interpreting Provider: Franky Slater MD - EKG Data EKG attestation: Yes I reviewed and interpreted this EKG. EKG shows normal: sinus rhythm Rate: normal Rhythm: NSR [place]/QRS: normal Interpretation: no acute changes Heart Score - Score History: Moderately Suspicious EKG: Non Specific repolarisation Disturbance Age: 45-65 Risk Factors: Equal/Greater than 3 risk factor or history of atherosclerotic disease Troponin: Less than normal limit HEART Score Total: 5
[2017-10-30 10:52] LABS: Basophils % 0.4 %; Eosinophils # 0.3 K/mcL (0.0-0.6); Eosinophils % 2.8 %; Hematocrit 31.1 % (35.3-44.9); Hemoglobin 9.6 g/dL (11.5-15.4); Immature Granulocytes % 0.3 % (0-4); Lymphocytes # 1.6 K/mcL (0.6-4.6); Lymphocytes % 17.5 %; Mean Corpuscular HGB Conc 30.9 g/dL (31.6-35.5); Mean Corpuscular Hemoglobin 25.6 pg (28.0-33.3); Mean Corpuscular Volume 82.9 fL (83.0-100.0); Mean Platelet Volume 10.6 fL (9.4-12.4); Monocytes # 0.8 K/mcL (0.0-1.3); Monocytes % 8.7 %; Neutrophils # 6.6 K/mcL (1.6-8.9); Platelet Count 313 K/mcL (140-400); Red Blood Count 3.75 M/mcL (3.82-4.97); Red Cell Distribution Width 13.2 % (11.5-14.5); Segmented Neutrophils % 70.3 %
[2017-10-30 10:57] LABS: INR 1.2; Prothrombin Time 13.5 Seconds (9.4-12.1)
[2017-10-30 10:59] LABS: Activated Partial Thrombo Time 36.8 Seconds (26.0-36.0)
[2017-10-30 11:09] LABS: Troponin I < 0.03 ng/mL (< 0.04)
[2017-10-30 11:17] LABS: BUN/Creatinine Ratio 19 (6-26); Blood Urea Nitrogen 42 mg/dL (8-23); Calcium 9.4 mg/dL (8.6-10.3); Carbon Dioxide 29 mEq/L (23-29); Chloride 99 mEq/L (98-107); Glucose 240 mg/dL (70-105); Osmolality,Calculated 304 (280-300); Potassium 4.6 mEq/L (3.5-5.1); Sodium 138 mEq/L (136-145); eGFR For African Americans 27 (> 60); eGFR For Non-African Americans 23 (> 60)
[2017-10-30] MEDS ORDERED: Naloxone 0.4 MG/ML INJ IVP PRN (13:09)
[2017-10-30] MEDS ORDERED: Acetaminophen 325 MG TABLET PO PRN (13:09)
[2017-10-30] MEDS ORDERED: Nitroglycerin 0.4 MG TAB.SUBL SL PRN (13:18)
[2017-10-30] MEDS ORDERED: D5% in Water 1,000 ML IVC PRN (13:25)
[2017-10-30] MEDS ORDERED: *HR* Dextrose 50 % in Water (Syg) 50 ML SYRINGE IVP PRN (13:25)
[2017-10-30] MEDS ORDERED: Dextrose Gel 15 GM/37.5 ML TUBE PO PRN ×2 (13:25)
--- NOTE | 2017-10-30 13:37 | Internal Med History&Physical ---
<Arben Delacruz - Last Filed: 10/30/17 14:10> Date of Encounter: 10/30/17 Time of Encounter: 12:30 Internal Medicine - H&P: HPI Chief complaint: Chest pain Admitted From: Emergency Dept Plans for Post Hospital Care: Home History of present illness: Ms. Valladares is a 62 year old female w/PMH of DVT 37 years ago in the right leg , IVs controlled with insulin, HTN, HLD, and CK D presents from the ED with chief complaint of chest pain and pressure that began this morning approximately 10 AM. Patient reports sharp pain began under her right breast and radiated to her right neck before becoming a pressure in the center of her chest. Patient reports nausea, SOB, diaphoresis accompanying symptoms. No alleviating or exacerbating factors. Patient denies previous occurrence. Patient reports history of leaky valve and heart catheterization with no stent placement. Currently anticoagulated on Eliquis. Pt. denies recent illness, fever, chills, vomiting, headache, changes in vision, unusual bleeding, palpitations, abdominal pain, numbness, tingling, diarrhea, constipation, dizziness, pre-syncope, or syncope. Past Med Surg Social Fam HX - Past Medical History Source: patient, old records reviewed Medical history: DVT, diabetes, hyperlipidemia, hypertension, renal disease Psychiatric history: anxiety, bipolar, depression - Past Surgical History Surgical History: orthopedic, other (Bone repair in right leg x3, bone repair in left leg x2, bone repair in right arm w/plate), other - Social History Smoking Status: Never smoker Smokeless Tobacco Status: No Alcohol use: none Drug use: none Current living situation: ECF (For rehabilitation) Activity Level: Uses cane/walker Recent Out of Country Travel Within the Last 8 Weeks: No Exposure or Possible Exposure to Illness During Travel: No - Family History Mother Race: Family Member Ethnicity: Non- Living Status: Age at : 65 Cause of : [place] Hx Family Cardiac Disorders: Yes ([place], HD) Hx Family Endocrine Disorder: Yes (DM) Father Race: Family Member Ethnicity: Non- Living Status: Age at : 44 Cause of : Suicide by gunshot Hx Family Psychosocial Disorders: Yes (Mental illness) Brother Race: Family Member Ethnicity: Non- Living Status: Still Living Hx Family Medical Disorders: No Sister Race: Family Member Ethnicity: Non- Living Status: Still Living Hx Family Cardiac Disorders: Yes (HTN) Internal Medicine - H&P: Meds Albuterol Sulfate [Proair Hfa] 2 puff IH Q6H PRN 02/11/16 [History] Atorvastatin [Lipitor] 40 mg PO HS 02/11/16 [History] Budesonide/Formoterol 160/4.5 [Symbicort 160/4.5] 2 puff IH BIDR 02/11/16 [ History] Cholecalciferol (D-3) [Vitamin D] 2,000 unit PO DAILY 02/11/16 [History] Escitalopram [Lexapro] 20 mg PO DAILY 02/11/16 [History] Gabapentin [Neurontin] 200 mg PO BID 02/11/16 [History] Insulin ASPART [Novolog Flexpen] 10 - 24 unit SQ TIDAC MDD per sliding scale [History] Insulin Glargine,Hum.rec.anlog [Lantus Solostar] 41 unit SQ BID 02/11/16 [ History] Losartan Potassium [Cozaar] 100 mg PO DAILY 02/11/16 [History] Paricalcitol [Zemplar] 2 mcg PO DAILY 02/11/16 [History] lamoTRIgine [Lamictal] 50 mg PO QAM 02/11/16 [History] Cetirizine HCl [Zyrtec] 10 mg PO DAILY 04/20/16 [History] Furosemide [Lasix] 40 mg PO BID 04/20/16 [History] Perphenazine 4 mg PO HS 04/20/16 [History] lamoTRIgine [Lamictal] 25 mg PO HS 04/20/16 [History] Apixaban [Eliquis] 2.5 mg PO BID #60 tablet 05/22/17 [Rx] HYDROcodone/Acet 5/325 mg [[place] 5-325 mg] 1 tab PO Q6HR PRN #30 tablet [Rx] Glucagon,Human Recombinant [Glucagon Emergency Kit] 1 mg IJ ONCE #1 kit [Rx] 3 Allergy/AdvReac Type Severity Reaction Status Date / Time acetaminophen [From Percocet] Allergy Hallucinati Verified 08/03/17 12:16 ng adhesive Allergy Rash Verified 08/03/17 12:16 codeine Allergy Rash Verified 08/03/17 12:16 ibuprofen [From Advil] Allergy Rash Verified 08/03/17 12:16 NSAIDS (Non-Steroidal Allergy Rash Verified 08/03/17 12:16 Anti-Inflamma Glucagon AdvReac Confusion Verified 08/03/17 12:16 Oxycodone [From Percocet] AdvReac Hallucinati Verified 08/03/17 12:16 ng All Systems PM: A 10-system review of systems was performed and is negative for pertinent findings except as documented above in the HPI. - Constitutional Constitutional: as per HPI, no chills, no fever(s), no night sweats - EENT Eyes: no change in vision, no discharge, no pain, no photophobia Ears: no ear discharge, no ear pain, no tinnitus Nose, mouth and throat: no dysphagia, no nasal discharge, no neck pain, no sore throat - Breasts Breasts: as per HPI - Cardiovascular Cardiovascular ROS IM: as per HPI, chest pain, diaphoresis, dyspnea, dyspnea on exertion, no lightheadedness, no palpitations, no syncope - Respiratory Respiratory: as per HPI, dyspnea, dyspnea on exertion, no cough, no wheezing, no excessive phlegm production - Gastrointestinal Gastrointestinal: no abdominal pain, no diarrhea, no hematemesis, no hematochezia, no melena, no nausea, no vomiting - Genitourinary Genitourinary: no change in urinary stream, no dysuria, no flank pain, no hematuria Menstruation: as per HPI - Musculoskeletal Musculoskeletal ROS IM: no numbness, no tingling - Integumentary Integumentary IM: no rash, no unusual bruising - Neurological Neurological ROS: no confusion, no convulsions, no focal weakness, no numbness, no tingling, no tremor(s) - Psychiatric Psychiatric: as per HPI, anxiety, depression - Endocrine Endocrine IM: as per HPI - Hematologic/Lymphatic Hematologic/Lymphatic: no easy bruising - Allergic/Immunologic Allergic/Immunologic: as per HPI - Constitutional Vitals: Temp Pulse Resp BP Pulse Ox 98 F 74 16 142/75 95 10/30/17 10:06 10/30/17 12:40 10/30/17 12:40 10/30/17 12:40 10/30/17 12:40 General appearance: Present: cooperative, mild distress (SOB), A&O X 3, pleasant , obese, answers questions appropriately - Head Head exam: Present: atraumatic, normocephalic - Eye Eye exam: Present: PERRL, conjuntiva pink, sclera anicteric Pupils: Present: PERRL - ENT ENT exam: Present: normal exam - Neck Neck exam general surgery: Present: normal inspection, supple, trachea midline. Absent: lymphadenopathy - Respiratory Respiratory exam: Present: CTAB. Absent: accessory muscle use, rales, rhonchi, wheezes - Cardiovascular Cardiovascular exam: Present: RRR, +S1, +S2. Absent: diastolic murmur, gallop, rubs, systolic murmur - GI/Abdominal GI/Abdominal exam: Present: normal bowel sounds, soft, no peritoneal signs. Absent: distended, tenderness - Rectal Rectal exam: Present: deferred - Additional comments: exam deferred. - Extremities Exam Extremities exam: Present: warm, radial pulses palpable and symmetrical. Absent : calf tenderness, cyanotic, pedal edema - Back Exam Back exam: Present: normal inspection - Neurological Exam Neurological exam: Present: CN II-XII intact, oriented X3, no focal deficits. Absent: pronater drift, facial droop, speech deficit - Psychiatric Psychiatric exam: Present: normal affect, normal mood - Skin Skin exam: Present: dry, intact Internal Med - H&P Results - Labs CBC & Chem 7: 10/30/17 10:36 10/30/17 10:36 Labs: Short CBC 10/30/17 Range/Units 10:36 WBC 9.3 (4.3-11.1) K/mcL Hgb 9.6 L (11.5-15.4) g/dL Hct 31.1 L (35.3-44.9) % Plt Count 313 (140-400) K/mcL Neutrophils # 6.6 (1.6-8.9) K/mcL BMP 10/30/17 10:36 Sodium 138 Potassium 4.6 Chloride 99 Carbon Dioxide 29 BUN 42 H Creatinine 2.20 H Glucose 240 H Calcium 9.4 Cardiac Enzymes 10/30/17 Range/Units 10:36 Troponin I < 0.03 (< 0.04) ng/mL - EKG Data EKG shows normal: sinus rhythm Rate: normal - EKG Data Prior EKG available for review: no Interpretation IM: normal EKG - Impressions ITS Impressions Chest X-Ray 10/30/17 10:05 IMPRESSION: No acute process. Bibasilar hypoaeration again noted D/ / Franky Silveira MD / Franky Silveira MD Interpreting Provider: Franky Silveira MD Pulmonary Perfusion Imaging 10/30/17 10:07 IMPRESSION: Normal perfusion study, considered negative for pulmonary embolism. Of note, the ventilation study is also normal. D/ / Franky Slater MD / Franky Slater MD Interpreting Provider: Franky Slater MD - Diagnostic Studies Chest x-ray Additional comments: Impressions Chest X-Ray 10/30/17 10:05 IMPRESSION: No acute process. Bibasilar hypoaeration again noted D/ / Franky Silveira MD / Franky Silveira MD Interpreting Provider: Franky Silveira MD Other Images Additional comments: Impressions Pulmonary Perfusion Imaging 10/30/17 10:07 IMPRESSION: Normal perfusion study, considered negative for pulmonary embolism. Of note, the ventilation study is also normal. D/ / Franky Slater MD / Franky Slater MD Interpreting Provider: Franky Slater MD - Assessment and plan (1) Chest pain Current Visit: Yes Status: Acute Assessment and plan: Acute CP that pt. reports began at 10:00 this morning as right-sided sharp pain that radiated to right neck and then to central chest as pressure. Reports previous heart catheterization w/o stent placement. Last echocardiogram dated showed normal LV chamber size, wall thickness, and systolic function. LVEF of 65-70%. Moderate left ventricular diastolic dysfunction. Normal right ventricular structure and function. Mildly dilated left atrium. No significant valvular dysfunction. Unable to estimated RSVP due to lack of TR jet. No aspirin given d/t pts. allergy to NSAIDS. Lipitor 80 mg NOW. Nitro SL PRN. Echocardiogram ordered. Continuous cardiac telemetry. Initial troponin < 0.03. We will trend. Consider cardiology consult if troponins and/or echocardiogram abnormal. Pt. discussed w/Dr. Lopez who agrees w/plan of care. Pt. is high risk for cardiac event based on current CP accompanied by SOB, nausea, and diaphoresis; hx of DVTs, co-morbidity hx and risk factors, and obesity. Observation. Qualifiers: Chest pain type: unspecified Qualified Code(s): R07.9 - Chest pain, unspecified (2) SOB (shortness of breath) Current Visit: Yes Status: Acute Assessment and plan: Acute SOB accompanying CP sx. Pt. reports pressure in central chest. Denies home O2 use. Concern is for possible PE given pts. hx of DVTs. VQ Scan shows normal perfusion study, considered negative for PE. Of note, the ventilation study is also normal. Supplemental O2 w/titration and SpO2 monitoring. Falls/ safety precautions. (3) HTN (hypertension) Current Visit: Yes Status: Chronic Assessment and plan: Hx of chronic HTN. Monitor pt. and VS. Continue pts. Cozaar. Qualifiers: Hypertension type: essential hypertension Qualified Code(s): I10 - Essential (primary) hypertension (4) HLD (hyperlipidemia) Current Visit: Yes Status: Chronic Assessment and plan: Hx of chronic HLD. Lipid panel in a.m. labs. Continue pts. Lipitor. 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 Pt. currently anticoagulated on Eliquis. (6) CKD (chronic kidney disease), stage IV Current Visit: Yes Status: Chronic Assessment and plan: Hx of CKD, currently stage IV w/GFR of 23 and creatinine of 2.20. Will use IV fluids judiciously if warranted and avoid nephrotoxins. Monitor I&O and daily weight. (7) Type 2 diabetes mellitus Current Visit: Yes Status: Chronic Assessment and plan: Hx of chronic diabetes controlled w/insulin. Medium-dose correction insulin sliding scale w/hypoglycemic protocol ordered. BG checks ACHS. A1c in a.m. labs. Qualifiers: Diabetes mellitus long term care administrator insulin use: with long term care administrator use Diabetes mellitus complication status: with kidney complications Diabetes mellitus complication detail: with chronic kidney disease Chronic kidney disease stage : stage 4 (severe) Qualified Code(s): E11.22 - Type 2 diabetes mellitus with diabetic chronic kidney disease; N18.4 - Chronic kidney disease, stage 4 (severe ); N18.4 - Chronic kidney disease, stage 4 (severe); N18.4 - Chronic kidney disease, stage 4 (severe); N18.4 - Chronic kidney disease, stage 4 (severe); Z79.4 - alf (current) use of insulin; Z79.4 - alf (current) use of insulin; Z79.4 - buttermaker (current) use of insulin; Z79.4 - alf (current ) use of insulin (8) DVT prophylaxis Current Visit: Yes Status: Acute Assessment and plan: Continue patient's Eliquis for DVT prophylaxis. Monitor patient for signs of bleeding. (9) Anxiety and depression Current Visit: Yes Status: Chronic Assessment and plan: Hx of chronic anxiety and bipolar depression. Continue patient's perphenazine, Lamictal, Lexapro. - Time Spent With Patient Total time spent is greater than 50% in coordination of care (as documented) at patient's floor/unit and/or counseling patient: 25 - 35 minutes <Kurtis Lopez P - Last Filed: 10/30/17 15:46> Date of Encounter: 10/30/17 Internal Medicine - H&P: HPI History of present illness: Ms. Valladares is a 62 year old female All Systems PM: A 10-system review of systems was performed and is negative for pertinent findings except as documented above in the HPI. - Constitutional Vitals: Temp Pulse Resp BP Pulse Ox 98.2 F 75 17 163/95 98 10/30/17 14:40 10/30/17 14:40 10/30/17 14:40 10/30/17 14:40 10/30/17 14:40 Internal Med - H&P Results - Labs CBC & Chem 7: 10/30/17 10:36 10/30/17 10:36 - Attending Attestation I examined this patient and my medical decision-making was reviewed with the Resident Physician/SWITCH CLEANER. I agree with the documented findings, disposition and treatment plan as described except to the extent set forth below. agree with assessment and plan - Assessment and plan (1) CKD (chronic kidney disease), stage IV Current Visit: Yes Status: Chronic (2) DVT prophylaxis Current Visit: Yes Status: Acute (3) Type 2 diabetes mellitus Current Visit: Yes Status: Chronic Qualifiers: Diabetes mellitus long term care administrator insulin use: with custodial use Diabetes mellitus complication status: with kidney complications Diabetes mellitus complication detail: with chronic kidney disease Chronic kidney disease stage : stage 4 (severe) Qualified Code(s): E11.22 - Type 2 diabetes mellitus with diabetic chronic kidney disease; N18.4 - Chronic kidney disease, stage 4 (severe ); N18.4 - Chronic kidney disease, stage 4 (severe); N18.4 - Chronic kidney disease, stage 4 (severe); N18.4 - Chronic kidney disease, stage 4 (severe); Z79.4 - alf (current) use of insulin; Z79.4 - buttermaker (current) use of insulin; Z79.4 - buttermaker (current) use of insulin; Z79.4 - buttermaker (current ) use of insulin (4) Chest pain Current Visit: Yes Status: Acute Qualifiers: Chest pain type: unspecified Qualified Code(s): R07.9 - Chest pain, unspecified (5) SOB (shortness of breath) Current Visit: Yes Status: Acute (6) HTN (hypertension) Current Visit: Yes Status: Chronic Qualifiers: Hypertension type: essential hypertension Qualified Code(s): I10 - Essential (primary) hypertension (7) HLD (hyperlipidemia) Current Visit: Yes Status: Chronic Qualifiers: Hyperlipidemia type: pure hypercholesterolemia Qualified Code(s): E78.00 - Pure hypercholesterolemia, unspecified; E78.0 - Pure hypercholesterolemia (8) Hx of deep venous thrombosis Current Visit: Yes Status: Chronic (9) Anxiety and depression Current Visit: Yes Status: Chronic - Time Spent With Patient Total time spent is greater than 50% in coordination of care (as documented) at patient's floor/unit and/or counseling patient:
[2017-10-30] MEDS: Furosemide 40 MG TABLET PO SCH (16:08)
[2017-10-30] MEDS: Insulin LISPRO 300 UNITS/3 ML VIAL SQ SCH (17:45)
[2017-10-30] MEDS: Budesonide/Formoterol 160/4.5 MDI IH SCH (20:10)
[2017-10-30] MEDS ORDERED: Perphenazine 2 MG TABLET PO SCH (21:00)
[2017-10-30] MEDS ORDERED: Insulin LISPRO 300 UNITS/3 ML VIAL SQ SCH (21:00)
[2017-10-30] MEDS ORDERED: lamoTRIgine 25 MG TABLET PO SCH (21:00)
[2017-10-30] MEDS: Insulin DETEMIR 100 UNIT/ML X5UNITS SQ SCH (21:42)
[2017-10-30] MEDS: Apixaban 2.5 MG TABLET PO SCH (21:44)
[2017-10-30] MEDS: Gabapentin 100 MG CAPSULE PO SCH (21:44)
[2017-10-31 06:13] LABS: Basophils # 0.1 K/mcL (0.0-0.2); Basophils % 0.5 %; Eosinophils # 0.2 K/mcL (0.0-0.6); Eosinophils % 2.4 %; Hemoglobin 9.2 g/dL (11.5-15.4); Immature Granulocytes % 0.3 % (0-4); Lymphocytes # 2.1 K/mcL (0.6-4.6); Lymphocytes % 21.8 %; Mean Corpuscular HGB Conc 30.7 g/dL (31.6-35.5); Mean Corpuscular Hemoglobin 25.6 pg (28.0-33.3); Mean Corpuscular Volume 83.3 fL (83.0-100.0); Mean Platelet Volume 10.7 fL (9.4-12.4); Monocytes # 1.1 K/mcL (0.0-1.3); Monocytes % 11.4 %; Platelet Count 314 K/mcL (140-400); Red Cell Distribution Width 13.2 % (11.5-14.5); Segmented Neutrophils % 63.6 %
[2017-10-31 06:21] LABS: INR 1.2; Prothrombin Time 12.8 Seconds (9.4-12.1)
[2017-10-31 06:24] LABS: Activated Partial Thrombo Time 35.6 Seconds (26.0-36.0)
[2017-10-31 06:30] LABS: Albumin 3.6 g/dL (3.5-5.7); Albumin/Globulin Ratio 1.2 (1.1-2.2); Bilirubin,Total 0.3 mg/dL (0.3-1.0); Calcium 9.3 mg/dL (8.6-10.3); Chol/HDL Ratio 3.7 (0-4.9); Magnesium 2.1 mg/dL (1.6-2.6); Potassium 3.6 mEq/L (3.5-5.1); Total Protein 6.6 g/dL (6.4-8.9)
[2017-10-31] MEDS: Budesonide/Formoterol 160/4.5 MDI IH SCH (07:39)
[2017-10-31] MEDS ORDERED: lamoTRIgine 25 MG TABLET PO SCH (09:00)
[2017-10-31] MEDS ORDERED: Cholecalciferol (D-3) 1,000 UNIT TABLET PO SCH (09:00)
[2017-10-31] MEDS ORDERED: Loratadine 10 MG TABLET PO SCH (09:00)
[2017-10-31] MEDS: Furosemide 40 MG TABLET PO SCH (09:31)
[2017-10-31] MEDS: Apixaban 2.5 MG TABLET PO SCH (09:31)
[2017-10-31] MEDS: Gabapentin 100 MG CAPSULE PO SCH (09:31)
[2017-10-31] MEDS: Insulin DETEMIR 100 UNIT/ML X5UNITS SQ SCH (09:32)
[2017-10-31] MEDS: Insulin LISPRO 300 UNITS/3 ML VIAL SQ SCH ×2 (09:33→12:22)
--- NOTE | 2017-10-31 11:29 | Electrocardiograph Report ---
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
--- NOTE | 2017-10-31 14:11 | Discharge Summary ---
- NOTES TO OUTPATIENT PROVIDER Notes to Outpatient Provider: f/u with PCP within a week. Date of Encounter: 10/31/17 Time of Encounter: 14:07 - Discharge Diagnosis (1) Chest pain Priority: Primary Status: Acute Qualifiers: Chest pain type: unspecified Qualified Code(s): R07.9 - Chest pain, unspecified (2) CKD (chronic kidney disease), stage IV Priority: Secondary Status: Chronic (3) DVT prophylaxis Priority: Primary Status: Acute (4) Type 2 diabetes mellitus Priority: Secondary Status: Chronic Qualifiers: Diabetes mellitus group home insulin use: with slot machine key person use Diabetes mellitus complication status: with kidney complications Diabetes mellitus complication detail: with chronic kidney disease Chronic kidney disease stage : stage 4 (severe) Qualified Code(s): E11.22 - Type 2 diabetes mellitus with diabetic chronic kidney disease; N18.4 - Chronic kidney disease, stage 4 (severe ); N18.4 - Chronic kidney disease, stage 4 (severe); N18.4 - Chronic kidney disease, stage 4 (severe); N18.4 - Chronic kidney disease, stage 4 (severe); Z79.4 - senior living (current) use of insulin; Z79.4 - senior living (current) use of insulin; Z79.4 - senior living (current) use of insulin; Z79.4 - control officer manager (current ) use of insulin (5) SOB (shortness of breath) Priority: Primary Status: Acute (6) HTN (hypertension) Priority: Secondary Status: Chronic Qualifiers: Hypertension type: essential hypertension Qualified Code(s): I10 - Essential (primary) hypertension (7) HLD (hyperlipidemia) Priority: Secondary Status: Chronic Qualifiers: Hyperlipidemia type: pure hypercholesterolemia Qualified Code(s): E78.00 - Pure hypercholesterolemia, unspecified; E78.0 - Pure hypercholesterolemia (8) Hx of deep venous thrombosis Priority: Secondary Status: Chronic (9) Anxiety and depression Priority: Secondary Status: Chronic Hospital course: Ms. Valladares is a 62 year old female's past medical history of hypertension, COPD, diabetes, CKD, and hyperlipidemia presented with right-sided chest pain. She has been admitted to the rehabilitation center recently and she reported the physical therapist has been worked on her right arm. She had several bone fracture on the right arm. She reported her right arm pain has been getting worse, and radiated to the right breast and right chest. Because of risk factor for CAD, was admitted as observation for further workup. EKG did not show acute ST-T change. Serial troponin was normal. Her clinical manifestation was suggestive of atypical chest pain. She will be discharged back to rehabilitation center today. She will follow-up with PCP within a week. Discharge discussed with: patient, family Time spent discussing smoking cessation with patient: more than 10 minutes - Time Spent with Patient Total time spent providing and/or coordinating discharge services: Greater than 30 minutes - Discharge Medications Home Medications: Albuterol Sulfate [Proair Hfa] 2 puff IH Q6H PRN 02/11/16 [History] Atorvastatin [Lipitor] 40 mg PO HS 02/11/16 [History] Budesonide/Formoterol 160/4.5 [Symbicort 160/4.5] 2 puff IH BIDR 02/11/16 [ History] Cholecalciferol (D-3) [Vitamin D] 2,000 unit PO DAILY 02/11/16 [History] Escitalopram [Lexapro] 20 mg PO DAILY 02/11/16 [History] Gabapentin [Neurontin] 200 mg PO BID 02/11/16 [History] Insulin ASPART [Novolog Flexpen] 10 - 24 unit SQ TIDAC MDD per sliding scale [History] Insulin Glargine,Hum.rec.anlog [Lantus Solostar] 41 unit SQ BID 02/11/16 [ History] Losartan Potassium [Cozaar] 100 mg PO DAILY 02/11/16 [History] Paricalcitol [Zemplar] 2 mcg PO DAILY 02/11/16 [History] lamoTRIgine [Lamictal] 50 mg PO QAM 02/11/16 [History] Cetirizine HCl [Zyrtec] 10 mg PO DAILY 04/20/16 [History] Furosemide [Lasix] 40 mg PO BID 04/20/16 [History] Perphenazine 4 mg PO HS 04/20/16 [History] lamoTRIgine [Lamictal] 25 mg PO HS 04/20/16 [History] Apixaban [Eliquis] 2.5 mg PO BID #60 tablet 05/22/17 [Rx] HYDROcodone/Acet 5/325 mg [[place] 5-325 mg] 1 tab PO Q6HR PRN #30 tablet [Rx] Glucagon,Human Recombinant [Glucagon Emergency Kit] 1 mg IJ ONCE #1 kit [Rx] Allergies/Adverse Reactions: 3 Allergy/AdvReac Type Severity Reaction Status Date / Time acetaminophen [From Percocet] Allergy Hallucinati Verified 08/03/17 12:16 ng adhesive Allergy Rash Verified 08/03/17 12:16 codeine Allergy Rash Verified 08/03/17 12:16 ibuprofen [From Advil] Allergy Rash Verified 08/03/17 12:16 NSAIDS (Non-Steroidal Allergy Rash Verified 08/03/17 12:16 Anti-Inflamma Glucagon AdvReac Confusion Verified 08/03/17 12:16 Oxycodone [From Percocet] AdvReac Hallucinati Verified 08/03/17 12:16 ng Date of admission: 10/30/17 13:42 Primary care physician: Ariel Funes MD Anticipated date of discharge: 10/31/17 - Constitutional Vitals: Temp Pulse Resp BP Pulse Ox 97.7 F 78 16 137/60 98 10/31/17 11:09 10/31/17 11:09 10/31/17 11:09 10/31/17 11:09 10/31/17 11:09 General appearance: Present: cooperative, mild distress (SOB), A&O X 3, pleasant , obese, answers questions appropriately Exam: PHYSICAL EXAMINATION: GENERAL APPEARANCE: The patient is alert, oriented and in no acute distress. HEENT: Head is normocephalic. The sinuses are nontender. Pupils are equal and reactive. The nares are patent. Oropharynx clear without lesions. NECK: Supple without lymphadenopathy. HEART: Regular rate and rhythm. LUNGS: No crackles or wheezes are heard. ABDOMEN: Soft, nontender, nondistended with good bowel sounds heard. Inguinal area is normal. EXTREMITIES: Without cyanosis, clubbing or edema. NEUROLOGICAL: Gross nonfocal. SKIN: Warm and dry without any rash. - Patient Status Disposition: Transfer Inpatient Rehab Fac Condition: Good Functional capacity at discharge: uses cane/walker Overall status at discharge: patient is back to baseline - Discharge Instructions Follow Up With: Terrance Roger [Partnered Physician] - 11/07/17 10:00 Catracho Garcia MD [Partnered Physician] - 11/06/17 2:40 pm Eliz Gilbert MD [Partnered Physician] - 11/21/17 4:00 pm - Diet and Activity Activity: increase activity as tolerated Diet: diabetic diet, low fat, low cholesterol, low salt diet
[2017-10-31 14:32] VITALS: BP 123/78
--- NOTE | 2017-10-31 15:33 | Physician Discharge Referral ---
ExtendedCare Referral Info Transfer To: F Provider in Charge: Patel Mcclure Provider in Charge after Transfer: Other Institutional Level of Care: Skilled - Diagnosis (1) Chest pain Priority: Primary Status: Acute (2) CKD (chronic kidney disease), stage IV Priority: Secondary Status: Chronic (3) DVT prophylaxis Priority: Primary Status: Acute (4) Type 2 diabetes mellitus Priority: Secondary Status: Chronic (5) SOB (shortness of breath) Priority: Secondary Status: Acute (6) HTN (hypertension) Priority: Secondary Status: Chronic (7) HLD (hyperlipidemia) Priority: Secondary Status: Chronic (8) Hx of deep venous thrombosis Priority: Secondary Status: Chronic (9) Anxiety and depression Priority: Secondary Status: Chronic Prognosis: Fair Aware of Diagnosis: Patient, Family Aware of Prognosis: Patient, Family - Transfer Medications Home Medications: Albuterol Sulfate [Proair Hfa] 2 puff IH Q6H PRN 02/11/16 [History] Atorvastatin [Lipitor] 40 mg PO HS 02/11/16 [History] Budesonide/Formoterol 160/4.5 [Symbicort 160/4.5] 2 puff IH BIDR 02/11/16 [ History] Cholecalciferol (D-3) [Vitamin D] 2,000 unit PO DAILY 02/11/16 [History] Escitalopram [Lexapro] 20 mg PO DAILY 02/11/16 [History] Gabapentin [Neurontin] 200 mg PO BID 02/11/16 [History] Insulin ASPART [Novolog Flexpen] 10 - 24 unit SQ TIDAC MDD per sliding scale [History] Insulin Glargine,Hum.rec.anlog [Lantus Solostar] 41 unit SQ BID 02/11/16 [ History] Losartan Potassium [Cozaar] 100 mg PO DAILY 02/11/16 [History] Paricalcitol [Zemplar] 2 mcg PO DAILY 02/11/16 [History] lamoTRIgine [Lamictal] 50 mg PO QAM 02/11/16 [History] Cetirizine HCl [Zyrtec] 10 mg PO DAILY 04/20/16 [History] Furosemide [Lasix] 40 mg PO BID 04/20/16 [History] Perphenazine 4 mg PO HS 04/20/16 [History] lamoTRIgine [Lamictal] 25 mg PO HS 04/20/16 [History] Apixaban [Eliquis] 2.5 mg PO BID #60 tablet 05/22/17 [Rx] HYDROcodone/Acet 5/325 mg [[place] 5-325 mg] 1 tab PO Q6HR PRN #30 tablet [Rx] Glucagon,Human Recombinant [Glucagon Emergency Kit] 1 mg IJ ONCE #1 kit [Rx] Allergies/Adverse Reactions: 3 Allergy/AdvReac Type Severity Reaction Status Date / Time acetaminophen [From Percocet] Allergy Hallucinati Verified 08/03/17 12:16 ng adhesive Allergy Rash Verified 08/03/17 12:16 codeine Allergy Rash Verified 08/03/17 12:16 ibuprofen [From Advil] Allergy Rash Verified 08/03/17 12:16 NSAIDS (Non-Steroidal Allergy Rash Verified 08/03/17 12:16 Anti-Inflamma Glucagon AdvReac Confusion Verified 08/03/17 12:16 Oxycodone [From Percocet] AdvReac Hallucinati Verified 08/03/17 12:16 ng - Respiratory Orders None Smoking Cessation: Smoking cessation has been advised. For more information, call the [place] Tobacco Quit Line at 0-214-YFTF-NOW. - Advance Directives Living Will: No Power of Maintenance Shop Technician: No Code Status: Full Code - Mobility Orders Ambulate - Rehabiliation Orders Rehab Potential: Fair Rehab Orders: Evaluation for Physical Therapy - Diet Orders Cardiac CERTIFICATION: I certify that the transfer of the above named patient to an Extended Care Facility is necessary for the continuing treatment of the diagnosis listed. The above information is true and accurate reflection of patient's current condition. Confidential - Redisclosure prohibited without a patient's written consent.
== END 2017-10-31 18:00 ==
LOC: 3BNU 09:58 → EMEROO 09:58 → 3BNU 14:14
PROVIDERS: ADMIT Internal Medicine; ATTEND Registered Nurse

== ENCOUNTER 2018-11-19 03:47 | Inpatient (IN) ==
--- NOTE | 2018-11-19 03:58 | Emergency Department Note ---
Disposition Clinical Impression: Diabetic ketoacidosis Qualifiers: Diabetes mellitus type: type 1 Hypertension Qualifiers: Hypertension type: unspecified Qualified Code(s): I10 - Essential (primary) hypertension Disposition: Admitted As Inpatient Condition: Fair Referrals: Ariel Funes MD [Primary Care Provider] - Time of Disposition: 06:08 General Adult HPI - General Stated complaint: elevated bp Time Seen by Provider: 11/19/18 03:49 Source: patient, EMS Mode of arrival: EMS Limitations: physical limitation Nursing Notes Reviewed: Yes Vital Signs Reviewed: Yes - History of Present Illness HPI Narrative: Patient left [facility] after being a resident for 2 years. She signed out AMA. She states "I was on some medications I could not even walk." She states she fell several times after going home. She complains of right anterior chest pain worse with cough and deep breathing. She denies other injury. She states she feels generally weak, her blood pressure is poorly controlled, and her blood sugar is elevated. Onset (ago): day(s) - Related Data Home Medications Medication Instructions Recorded Confirmed Albuterol Sulfate [Proair Hfa] 2 puff IH Q6H PRN 02/11/16 10/30/17 Atorvastatin [Lipitor] 40 mg PO HS 02/11/16 10/30/17 Budesonide/Formoterol 160/4.5 2 puff IH BIDR 02/11/16 10/30/17 [Symbicort 160/4.5] Cholecalciferol (D-3) [Vitamin D] 2,000 unit PO DAILY 02/11/16 10/30/17 Escitalopram [Lexapro] 20 mg PO DAILY 02/11/16 10/30/17 Gabapentin [Neurontin] 200 mg PO BID 02/11/16 10/30/17 Insulin ASPART [Novolog Flexpen] 10 - 24 unit SQ TIDAC MDD per 02/11/16 10/30/17 sliding scale Insulin Glargine,Hum.rec.anlog 41 unit SQ BID 02/11/16 10/30/17 [Lantus Solostar] Losartan Potassium [Cozaar] 100 mg PO DAILY 02/11/16 10/30/17 Paricalcitol [Zemplar] 2 mcg PO DAILY 02/11/16 10/30/17 lamoTRIgine [Lamictal] 50 mg PO QA 02/11/16 10/30/17 Cetirizine HCl [Zyrtec] 10 mg PO DAILY 04/20/16 10/30/17 Furosemide [Lasix] 40 mg PO BID 04/20/16 10/30/17 Perphenazine 4 mg PO HS 04/20/16 10/30/17 lamoTRIgine [Lamictal] 25 mg PO HS 04/20/16 10/30/17 Previous Rx's Medication Instructions Recorded Apixaban [Eliquis] 2.5 mg PO BID #60 tablet 05/22/17 HYDROcodone/Acet 5/325 mg [[place] 1 tab PO Q6HR PRN #30 tablet 07/17/17 5-325 mg] Glucagon,Human Recombinant 1 mg IJ ONCE #1 kit 08/03/17 [Glucagon Emergency Kit] Allergies Allergy/AdvReac Type Severity Reaction Status Date / Time acetaminophen [From Percocet] Allergy Hallucinati Verified 08/03/17 12:16 ng adhesive Allergy Rash Verified 08/03/17 12:16 codeine Allergy Rash Verified 08/03/17 12:16 ibuprofen [From Advil] Allergy Rash Verified 08/03/17 12:16 NSAIDS (Non-Steroidal Allergy Rash Verified 08/03/17 12:16 Anti-Inflamma Glucagon AdvReac Confusion Verified 08/03/17 12:16 oxycodone [From Percocet] AdvReac Hallucinati Verified 08/03/17 12:16 ng All systems ED: reviewed and negative except as stated. Constitutional: Reports: weakness Eyes: Reports: as per HPI ENT ED: Reports: as per HPI Cardiovascular: Reports: chest pain Respiratory: Reports: cough Gastrointestinal: Reports: as per HPI Musculoskeletal: Reports: as per HPI Integumentary: Reports: as per HPI Neurological: Reports: weakness Psychiatric: Reports: as per HPI Endocrine: Reports: other (hyperglycemia, hypertension) Hematological/Lymphatic: Reports: as per HPI Allergic/Immunologic: Reports: as per HPI Past Medical History - Past Medical History Source: patient, old records reviewed Medical history: Reports: DVT, diabetes, hyperlipidemia, hypertension, renal disease Surgical history: Reports: orthopedic, other, other Psychiatric history: Reports: anxiety, bipolar, depression TEAM GUIDE history: Reports: non-contributory - Social History Smoking Status: Never smoker Smokeless Tobacco Status: No Alcohol use: Reports: none Drug use: Reports: none Physical Exam Patient appears generally weak, shaky, frail - General Limitations: no limitations General appearance: alert, anxious - Head Head exam: atraumatic - Eye Eye exam: Present: normal appearance, PERRL - ENT ENT exam: normal exam - Neck Neck exam: Present: normal inspection, full ROM - Chest Chest inspection: Present: normal inspection, symmetric chest wall rise - Respiratory Respiratory exam: Present: normal lung sounds bilaterally - Cardiovascular Cardiovascular exam: Present: regular rate, normal rhythm, irregular rhythm - Abdominal Exam Abdominal exam: Present: soft, Non-Tender - Rectal Exam Rectal exam: Present: deferred - Extremities Exam Extremities exam: Present: normal inspection, pedal edema - Neurological Exam Neurological exam: Present: alert, oriented X3, CN II-XII intact - Psychiatric Psychiatric exam: Present: normal affect, anxious - Skin Skin exam: Present: warm, dry, intact Course Course Narrative: Patient presents to the emergency department from home. Her blood pressure and blood sugars are poorly controlled. She has not had her medications recently after leaving the long term AGAINST MEDICAL ADVICE. Vital Signs Temperature 98 F 11/19/18 03:56 Pulse Rate 84 11/19/18 03:56 Respiratory Rate 18 11/19/18 03:56 Blood Pressure 228/98 11/19/18 03:56 O2 Sat by Pulse Oximetry 99 11/19/18 03:56 Temperature 98 F 11/19/18 03:56 Pulse Rate 84 11/19/18 03:56 Respiratory Rate 18 11/19/18 03:56 Blood Pressure 228/98 11/19/18 03:56 O2 Sat by Pulse Oximetry 99 11/19/18 03:56 Oxygen Delivery Oxygen Delivery Room Air Medical Decision Making - Medical Records Medical records reviewed: Yes I reviewed the patient's medical records. - Lab Data Lab results reviewed: Yes I reviewed the patient's lab results. Result diagrams: 11/19/18 05:29 11/19/18 05:29 Lab Results 11/19/18 11/19/18 11/19/18 Range/Units 04:20 04:55 05:29 WBC 10.8 (4.3-11.1) K/mcL RBC 3.88 (3.82-4.97) M/mcL Hgb 10.1 L (11.5-15.4) g/dL Hct 32.4 L (35.3-44.9) % MCV 83.5 (83.0-100.0) fL MCH 26.0 L (28.0-33.3) pg MCHC 31.2 L (31.6-35.5) g/dL RDW 15.6 H (11.5-14.5) % Plt Count 263 (140-400) K/mcL MPV 10.3 (9.4-12.4) fL Immature Gran % 0.4 (0-4) % Seg Neutrophils % 85.4 % Lymphocytes % 7.0 % Monocytes % 6.3 % Eosinophils % 0.6 % Basophils % 0.3 % Neutrophils # 9.2 H (1.6-8.9) K/mcL Lymphocytes # 0.8 (0.6-4.6) K/mcL Monocytes # 0.7 (0.0-1.3) K/mcL Eosinophils # 0.1 (0.0-0.6) K/mcL Basophils # 0.0 (0.0-0.2) K/mcL VBG pH (7.32-7.42) pH Units VBG pCO2 (41-51) mmHg VBG pO2 (25-50) mmHg VBG HCO3 (21-27) mEq/L Sodium (136-145) mEq/L Potassium (3.5-5.1) mEq/L Chloride (98-107) mEq/L Carbon Dioxide (23-29) mEq/L BUN (8-23) mg/dL Creatinine (0.60-1.20) mg/dL Est GFR ( Amer) (> 60) Est GFR (Non-Af Amer) (> 60) BUN/Creatinine Ratio (6-26) Glucose (70-105) mg/dL POC Glucose 560 H* (70-99) mg/dL Calculated Osmolality (280-300) Calcium (8.6-10.3) mg/dL Total Bilirubin (0.3-1.0) mg/dL AST (13-39) Units/L ALT (7-52) Units/L Alkaline Phosphatase (34-104) Units/L Troponin I (< 0.04) ng/mL Serum Total Protein (6.4-8.9) g/dL Albumin (3.5-5.7) g/dL Globulin (2.4-3.5) g/dL Albumin/Globulin Ratio (1.1-2.2) Beta-Hydroxybutyric Acd (0.02-0.27) mmol/L Ur Specimen Adequacy See below A Urine Color Yellow (Yellow) Urine Clarity Cloudy A (Clear) Urine pH 5.0 (5.0-8.0) pH Units Ur Specific [place] 1.028 H (1.010-1.025) Urine Protein 100 H (Neg-Trace) mg/dL Urine Glucose (UA) >=1000 H (Normal) mg/dL Urine Ketones 15 H (Negative) mg/dL Urine Blood Moderate H (Negative) Urine Nitrite Negative (Negative) Urine Bilirubin Negative (Negative) Urine Urobilinogen Normal (Normal) mg/dL Ur Leukocyte Esterase Moderate H (Negative) Urine Microscopic RBC 5-15 H (0-3) per hpf Urine Microscopic WBC 30-50 H (0-3) per hpf Ur Squamous Epith Cells Many H (None-Few) per lpf Urine Bacteria None Seen (None-Few) per hpf Hyaline Casts Test Not Performed 11/19/18 11/19/18 11/19/18 Range/Units 05:29 05:29 05:39 WBC (4.3-11.1) K/mcL RBC (3.82-4.97) M/mcL Hgb (11.5-15.4) g/dL Hct (35.3-44.9) % MCV (83.0-100.0) fL MCH (28.0-33.3) pg MCHC (31.6-35.5) g/dL RDW (11.5-14.5) % Plt Count (140-400) K/mcL MPV (9.4-12.4) fL Immature Gran % (0-4) % Seg Neutrophils % % Lymphocytes % % Monocytes % % Eosinophils % % Basophils % % Neutrophils # (1.6-8.9) K/mcL Lymphocytes # (0.6-4.6) K/mcL Monocytes # (0.0-1.3) K/mcL Eosinophils # (0.0-0.6) K/mcL Basophils # (0.0-0.2) K/mcL VBG pH 7.49 H (7.32-7.42) pH Units VBG pCO2 23 L (41-51) mmHg VBG pO2 208 H (25-50) mmHg VBG HCO3 17 L (21-27) mEq/L Sodium 134 L (136-145) mEq/L Potassium 5.0 (3.5-5.1) mEq/L Chloride 98 (98-107) mEq/L Carbon Dioxide 19 L (23-29) mEq/L BUN 44 H (8-23) mg/dL Creatinine 2.08 H (0.60-1.20) mg/dL Est GFR ( Amer) 29 L (> 60) Est GFR (Non-Af Amer) 24 L (> 60) BUN/Creatinine Ratio 21 (6-26) Glucose 657 H* (70-105) mg/dL POC Glucose (70-99) mg/dL Calculated Osmolality 320 H (280-300) Calcium 9.2 (8.6-10.3) mg/dL Total Bilirubin 0.8 (0.3-1.0) mg/dL AST 13 (13-39) Units/L ALT 6 L (7-52) Units/L Alkaline Phosphatase 85 (34-104) Units/L Troponin I 0.03 (< 0.04) ng/mL Serum Total Protein 6.9 (6.4-8.9) g/dL Albumin 4.0 (3.5-5.7) g/dL Globulin 2.9 (2.4-3.5) g/dL Albumin/Globulin Ratio 1.4 (1.1-2.2) Beta-Hydroxybutyric Acd > 2.00 H (0.02-0.27) mmol/L Ur Specimen Adequacy Urine Color (Yellow) Urine Clarity (Clear) Urine pH (5.0-8.0) pH Units Ur Specific [place] (1.010-1.025) Urine Protein (Neg-Trace) mg/dL Urine Glucose (UA) (Normal) mg/dL Urine Ketones (Negative) mg/dL Urine Blood (Negative) Urine Nitrite (Negative) Urine Bilirubin (Negative) Urine Urobilinogen (Normal) mg/dL Ur Leukocyte Esterase (Negative) Urine Microscopic RBC (0-3) per hpf Urine Microscopic WBC (0-3) per hpf Ur Squamous Epith Cells (None-Few) per lpf Urine Bacteria (None-Few) per hpf Hyaline Casts - Radiology Data Radiology results reviewed: Yes I reviewed the patient's radiology results. - EKG Data EKG #1 EKG attestation: Yes I reviewed and interpreted this EKG. EKG results narrative: Normal sinus rhythm rate 82 OR 167 QRS 95 QT/QTC 404/472. Left ventricular hypertrophy. Poor R wave progression across the precordial leads. No acute ST segment elevation. Study compared to previous dated 10/30/17 Critical Care Time Critical Care Time: Yes Total Critical Care Time: 30 Attestation: The high probability of a clinically significant, sudden or life threatening deterioration of the [] system(s) required my full and direct attention, intervention and personal management. The aggregate critical care time was [] mi nutes. This time is in addition to time spent performing reported procedures but includes the following: [] Data Review and interpretation [] Patient assessment and monitoring of vital signs [] Documentation [] Medication orders and management
[2018-11-19 05:39] LABS: Bilirubin,Urine Negative (Negative); Blood,Urine Moderate (Negative); Clarity,Urine Cloudy (Clear); Color,Urine Yellow (Yellow); Glucose,Urine (UA) >=1000 mg/dL (Normal); Ketones,Urine 15 mg/dL (Negative); Leukocyte Esterase,Urine Moderate (Negative); Nitrite,Urine Negative (Negative); Protein,Urine 100 mg/dL (Neg-Trace); Specific Gravity,Urine 1.028 (1.010-1.025); Urobilinogen,Urine Normal (Normal)
[2018-11-19 05:40] LABS: Basophils % 0.3 %; Eosinophils # 0.1 K/mcL (0.0-0.6); Eosinophils % 0.6 %; Hematocrit 32.4 % (35.3-44.9); Hemoglobin 10.1 g/dL (11.5-15.4); Immature Granulocytes % 0.4 % (0-4); Lymphocytes # 0.8 K/mcL (0.6-4.6); Mean Corpuscular HGB Conc 31.2 g/dL (31.6-35.5); Mean Corpuscular Volume 83.5 fL (83.0-100.0); Mean Platelet Volume 10.3 fL (9.4-12.4); Monocytes # 0.7 K/mcL (0.0-1.3); Monocytes % 6.3 %; Neutrophils # 9.2 K/mcL (1.6-8.9); Platelet Count 263 K/mcL (140-400); Red Blood Count 3.88 M/mcL (3.82-4.97); Red Cell Distribution Width 15.6 % (11.5-14.5); Segmented Neutrophils % 85.4 %
[2018-11-19 05:41] LABS: Bacteria,Urine None Seen per hpf (None-Few); Squamous Epithelial Cell,Urine Many per lpf (None-Few); WBC,Urine 30-50 per hpf (0-3)
[2018-11-19 05:42] LABS: VBG HCO3 17 mEq/L (21-27); VBG PCO2 23 mmHg (41-51); VBG PH 7.49 pH Units (7.32-7.42); VBG PO2 208 mmHg (25-50)
[2018-11-19 06:05] LABS: Albumin/Globulin Ratio 1.4 (1.1-2.2); Bilirubin,Total 0.8 mg/dL (0.3-1.0); Calcium 9.2 mg/dL (8.6-10.3); Globulin 2.9 g/dL (2.4-3.5); Total Protein 6.9 g/dL (6.4-8.9); Troponin I 0.03 ng/mL (< 0.04)
[2018-11-19] MEDS ORDERED: Insulin Human Regular 100 UNIT in 0.9 % Sodium Chloride 100 ML IVC SCH (06:15)
[2018-11-19] MEDS ORDERED: 0.9 % Sodium Chloride 1,000 ML IVC ONE (06:29)
--- NOTE | 2018-11-19 07:30 | Internal Med History&Physical ---
<Ambrosio Riley - Last Filed: 11/19/18 11:15> Date of Encounter: 11/19/18 Time of Encounter: 07:16 Internal Medicine - H&P: HPI Chief complaint: Elevated BP Admitted From: Emergency Dept Plans for Post Hospital Care: Transfer Shelter Facility History of present illness: Ms. Valladares is a 63 year old female with a past medical history of diabetes mellitus type 2, hypertension, hyperlipidemia, CKD stage IV, seizure disorder, and Eliquis use for history of recurrent DVTs who presented to the ED compl aining of elevated blood pressure after being without meds for two days since signing out AMA from [facility]. Patient fell multiple times because "they were give me so much medication that I could not even walk". She reports posterior shoulder pain but denies any head trauma or further injuries. In the ED, labs revealed DKA, anion gap 17, and the patient was started on an insulin drip. UA sample was contaminated with multiple squamous epithelial cells, patient denies dysuria, hematuria, or urinary frequency/urgency. Past Med Surg Social Fam HX - Past Medical History Medical history: DVT, diabetes, hyperlipidemia, hypertension, renal disease Additional medical history: Pt resides at [facility] Psychiatric history: anxiety, bipolar, depression - Past Surgical History Surgical History: orthopedic, other, other Additional surgical history: Left lower leg ginger (fractured leg) - Social History Smoking Status: Never smoker Smokeless Tobacco Status: No Alcohol use: none Drug use: none - Family History Brother Family Member Ethnicity: Non- Living Status: Still Living Sister Family Member Ethnicity: Non- Living Status: Still Living Hx Family Cardiac Disorders: Yes (HTN) Mother Family Member Ethnicity: Non- Living Status: Hx Family Cardiac Disorders: Yes (VT) Hx Family Endocrine Disorder: Yes (DM) Father Family Member Ethnicity: Non- Living Status: Internal Medicine - H&P: Meds Albuterol Sulfate [Proair Hfa] 2 puff IH Q6H PRN 02/11/16 [History] Atorvastatin [Lipitor] 40 mg PO HS 02/11/16 [History] Cholecalciferol (D-3) [Vitamin D] 1,000 unit PO DAILY 02/11/16 [History] Gabapentin [Neurontin] 100 mg PO BID 02/11/16 [History] Insulin ASPART [Novolog Flexpen] 3 - 24 unit SQ TIDAC MDD per sliding scale 02/11/16 [History] Apixaban [Eliquis] 2.5 mg PO BID #60 tablet 05/22/17 [Rx] Glucagon,Human Recombinant [Glucagon Emergency Kit] 1 mg IJ ONCE #1 kit 08/03/17 [Rx] Acetaminophen [Tylenol] 650 mg PO Q6HR PRN 11/19/18 [History] Amlodipine Besylate 5 mg PO DAILY 11/19/18 [History] Benzonatate [Tessalon] 200 mg PO TID PRN 11/19/18 [History] Epoetin Abdifatah [Procrit] 10,000 unit IM Q14D 11/19/18 [History] Escitalopram [Lexapro] 10 mg PO DAILY 11/19/18 [History] Ferrous Sulfate [Iron] 325 mg PO BID 11/19/18 [History] Furosemide [Lasix] 20 mg PO DAILY 11/19/18 [History] Insulin NPH, HUMAN [HumuLIN N] 25 units SQ BID 11/19/18 [History] Isosorbide DInitrate [Isordil] 10 mg PO TID 11/19/18 [History] Nystatin POWDER [Nystop] 1 appl TP TID PRN 11/19/18 [History] Paricalcitol 1 mcg PO DAILY 11/19/18 [History] hydrALAZINE [HydrALAZINE] 75 mg PO TID 11/19/18 [History] lamoTRIgine [Lamotrigine] 200 mg PO BID 11/19/18 [History] levETIRAcetam [Roweepra] 750 mg PO BID 11/19/18 [History] Allergy/AdvReac Type Severity Reaction Status Date / Time acetaminophen [From Percocet] Allergy Hallucinati Verified 08/03/17 12:16 ng adhesive Allergy Rash Verified 08/03/17 12:16 codeine Allergy Rash Verified 08/03/17 12:16 ibuprofen [From Advil] Allergy Rash Verified 08/03/17 12:16 NSAIDS (Non-Steroidal Allergy Rash Verified 08/03/17 12:16 Anti-Inflamma Glucagon AdvReac Confusion Verified 08/03/17 12:16 oxycodone [From Percocet] AdvReac Hallucinati Verified 08/03/17 12:16 ng All Systems PM: A 10-system review of systems was performed and is negative for pertinent findings except as documented above in the HPI. - Constitutional Constitutional: falls, weakness, no anorexia, no chills, no fatigue - EENT Eyes: no blurry vision, no diplopia Nose, mouth and throat: no sinus pain, no sore throat - Cardiovascular Cardiovascular ROS IM: no chest pain, no dyspnea, no irregular heart rhythm, no palpitations, no syncope - Respiratory Respiratory: no cough, no wheezing, no chest congestion - Gastrointestinal Gastrointestinal: no abdominal pain, no diarrhea, no nausea, no vomiting - Genitourinary Genitourinary: no dysuria, no urinary frequency, no urinary urgency - Musculoskeletal Musculoskeletal ROS IM: arthralgias, no numbness, no tingling - Integumentary Integumentary IM: new lesions (Right shoulder bruising) - Neurological Neurological ROS: convulsions, weakness (History of seizures), no dizziness, no memory loss - Psychiatric Psychiatric: no anxiety, no depression - Endocrine Endocrine IM: no polydipsia, no polyphagia, no polyuria - Constitutional Vitals: Temp Pulse Resp BP Pulse Ox 98 F 84 18 228/98 99 11/19/18 03:56 11/19/18 03:56 11/19/18 03:56 11/19/18 03:56 11/19/18 03:56 General appearance: Present: cooperative, pleasant, no acute distress, obese, answers questions appropriately Exam: awake - Head Head exam: Present: atraumatic, normocephalic - Eye Eye exam: Present: EOMI, sclera anicteric - ENT ENT exam: Present: mucous membranes dry, normal oropharynx - Neck Neck exam general surgery: Present: supple. Absent: tenderness - Respiratory Respiratory exam: Present: decreased breath sounds (Poor respiratory effort). Absent: rales, respiratory distress, wheezes - Cardiovascular Cardiovascular exam: Present: RRR, tachycardia. Absent: diastolic murmur, gallop, rubs, systolic murmur - GI/Abdominal GI/Abdominal exam: Present: soft. Absent: distended, tenderness - Extremities Exam Extremities exam: Present: full ROM (Ecchymosis over right posterior shoulder), tenderness. Absent: pedal edema - Back Exam Back exam: Present: full ROM, tenderness - Neurological Exam Neurological exam: Present: alert, oriented X3, no focal deficits, strengths equal and symetr throughout - Psychiatric Psychiatric exam: Absent: anxious, depressed - Skin Skin exam: Present: dry (Ecchymosis over right posterior shoulder and buttock), warm Internal Med - H&P Results - Labs CBC & Chem 7: 11/19/18 05:29 11/19/18 09:49 Labs: Short CBC 11/19/18 Range/Units 05:29 WBC 10.8 (4.3-11.1) K/mcL Hgb 10.1 L (11.5-15.4) g/dL Hct 32.4 L (35.3-44.9) % Plt Count 263 (140-400) K/mcL Neutrophils # 9.2 H (1.6-8.9) K/mcL BMP 11/19/18 05:29 Sodium 134 L Potassium 5.0 Chloride 98 Carbon Dioxide 19 L BUN 44 H Creatinine 2.08 H Glucose 657 H* Calcium 9.2 Cardiac Enzymes 11/19/18 Range/Units 05:29 Troponin I 0.03 (< 0.04) ng/mL Liver Function 11/19/18 Range/Units 05:29 Total Bilirubin 0.8 (0.3-1.0) mg/dL AST 13 (13-39) Units/L ALT 6 L (7-52) Units/L Alkaline Phosphatase 85 (34-104) Units/L Albumin 4.0 (3.5-5.7) g/dL Urine 11/19/18 Range/Units 04:55 Urine Color Yellow (Yellow) Urine Clarity Cloudy A (Clear) Urine pH 5.0 (5.0-8.0) pH Units Ur Specific [place] 1.028 H (1.010-1.025) Urine Protein 100 H (Neg-Trace) mg/dL Urine Glucose (UA) >=1000 H (Normal) mg/dL - ABG Interpretation ABG results: 11/19/18 05:39 VBG pH 7.49 H VBG pCO2 23 L VBG pO2 208 H VBG HCO3 17 L - Pulse Oximetry Interpretation Digit-Finger O2 Sat by Pulse Oximetry: 99 (On ambient air) Actions taken: none - EKG Data -: EKG Interpreted by Myself EKG shows normal: sinus rhythm (Normal sinus rhythm, heart rate 82, LVH, no change compared to previous EKG 10/30/17) - Impressions ITS Impressions Chest X-Ray 11/19/18 03:54 IMPRESSION: 1. Low lung volumes but no active pulmonary disease. D/ / Armando Davila MD / Armando Davila MD Interpreting Provider: Armando Davila MD Shoulder X-Ray 11/19/18 03:55 IMPRESSION: 1. No acute abnormality involving the right shoulder. D/ / Armando Davila MD / Armando Davila MD Interpreting Provider: Armando Davila MD - Assessment and Plan (1) Diabetic ketoacidosis Current Visit: Yes Status: Acute Assessment and plan: Patient left nursing facility AMA has been off insulin for 2 days. Anion gap was 17 on admission, beta hydroxybutyric acid is elevated. Patient was started on insulin drip. Patient previously took Insulin NPH 25mg BID plus SSI ath the nursing facility Last HGB a1c was 10.4 on 10/20/17, repeat level pending Continue to monitor BMP is every 4 hours, resume basal insulin once entering gap is closed. Repeat anion gap 11. Start ADA diet now that anion gap is closed. Qualifiers: Diabetes mellitus type: type 2 Diabetes mellitus complication detail: without coma Qualified Code(s): E11.10 - Type 2 diabetes mellitus with ketoacidosis without coma (2) Hypertensive crisis Current Visit: Yes Status: Acute Assessment and plan: Patient presented with to ED with BP 228/98. Patient reports not taking her hypertensive meds since she signed out AMA from the nursing facility 2 days prior to arrival. Patient takes Hydralazine 75 mg PO TID, Lasix, and Imdur. Resume home meds. Continue hydralazine 10 mg IV q6h prn hypertension (3) Falls Current Visit: Yes Status: Acute Assessment and plan: CT brain pending. Patient has a large bruise over her right posterior shoulder, right shoulder x- ray was negative. Fall precautions. PT/OT consulted. Qualifiers: Encounter type: initial encounter Qualified Code(s): W19.XXXA - Unspecified fall, initial encounter (4) HLD (hyperlipidemia) Current Visit: No Status: Chronic Assessment and plan: Continue statin Qualifiers: Hyperlipidemia type: pure hypercholesterolemia Qualified Code(s): E78.00 - Pure hypercholesterolemia, unspecified; E78.0 - Pure hypercholesterolemia (5) CKD (chronic kidney disease), stage IV Current Visit: Yes Status: Chronic Assessment and plan: Renal function at baseline. Patient sees Dr. Glass as an outpatient. Monitor renal function. (6) Hx of deep venous thrombosis Current Visit: No Status: Chronic Assessment and plan: Continue Eliquis for anticoagulation. (7) Obesity (BMI 30-39.9) Current Visit: Yes Status: Chronic Assessment and plan: Diet and exercise (8) Seizure disorder Current Visit: No Status: Chronic Assessment and plan: Continue home antiepileptic therapy. - Time Spent With Patient Total time spent is greater than 50% in coordination of care (as documented) at patient's floor/unit and/or counseling patient: <Tiana Nathan - Last Filed: 11/19/18 14:17> Date of Encounter: 11/19/18 Internal Medicine - H&P: HPI History of present illness: Ms. Valladares is a 63 year old female All Systems PM: A 10-system review of systems was performed and is negative for pertinent findings except as documented above in the HPI. - Constitutional Vitals: Temp Pulse Resp BP Pulse Ox 97.8 F 75 23 182/67 97 11/19/18 12:29 11/19/18 10:00 11/19/18 10:00 11/19/18 10:00 11/19/18 10:00 Internal Med - H&P Results - Labs CBC & Chem 7: 11/19/18 05:29 11/19/18 09:49 Labs: Short CBC 11/19/18 Range/Units 05:29 WBC 10.8 (4.3-11.1) K/mcL Hgb 10.1 L (11.5-15.4) g/dL Hct 32.4 L (35.3-44.9) % Plt Count 263 (140-400) K/mcL Neutrophils # 9.2 H (1.6-8.9) K/mcL BMP 11/19/18 11/19/18 05:29 09:49 Sodium 134 L 139 Potassium 5.0 3.7 D Chloride 98 104 Carbon Dioxide 19 L 24 BUN 44 H 43 H Creatinine 2.08 H 1.91 H Glucose 657 H* 379 H Calcium 9.2 9.3 Cardiac Enzymes 11/19/18 Range/Units 05:29 Troponin I 0.03 (< 0.04) ng/mL Liver Function 11/19/18 Range/Units 05:29 Total Bilirubin 0.8 (0.3-1.0) mg/dL AST 13 (13-39) Units/L ALT 6 L (7-52) Units/L Alkaline Phosphatase 85 (34-104) Units/L Albumin 4.0 (3.5-5.7) g/dL Urine 11/19/18 Range/Units 04:55 Urine Color Yellow (Yellow) Urine Clarity Cloudy A (Clear) Urine pH 5.0 (5.0-8.0) pH Units Ur Specific [place] 1.028 H (1.010-1.025) Urine Protein 100 H (Neg-Trace) mg/dL Urine Glucose (UA) >=1000 H (Normal) mg/dL - ABG Interpretation ABG results: 11/19/18 05:39 VBG pH 7.49 H VBG pCO2 23 L VBG pO2 208 H VBG HCO3 17 L - Impressions ITS Impressions Chest X-Ray 11/19/18 03:54 IMPRESSION: 1. Low lung volumes but no active pulmonary disease. D/ / Armando Davila MD / Armando Davila MD Interpreting Provider: Armando Davila MD Shoulder X-Ray 11/19/18 03:55 IMPRESSION: 1. No acute abnormality involving the right shoulder. D/ / Armando Davila MD / Armando Davila MD Interpreting Provider: Armando Davila MD Head CT 11/19/18 12:30 IMPRESSION: No acute intracranial abnormality. D/ / Lenin Clay MD / Lenin Clay MD Interpreting Provider: Lenin Clay MD - Assessment and Plan (1) Obesity (BMI 30-39.9) Current Visit: Yes Status: Chronic (2) HLD (hyperlipidemia) Current Visit: No Status: Chronic Qualifiers: Hyperlipidemia type: pure hypercholesterolemia Qualified Code(s): E78.00 - Pure hypercholesterolemia, unspecified; E78.0 - Pure hypercholesterolemia (3) Hx of deep venous thrombosis Current Visit: No Status: Chronic (4) Diabetic ketoacidosis Current Visit: Yes Status: Acute Qualifiers: Diabetes mellitus type: type 2 Diabetes mellitus complication detail: without coma Qualified Code(s): E11.10 - Type 2 diabetes mellitus with ketoacidosis without coma (5) Falls Current Visit: Yes Status: Acute Qualifiers: Encounter type: initial encounter Qualified Code(s): W19.XXXA - Unspecified fall, initial encounter (6) Hypertensive crisis Current Visit: Yes Status: Acute (7) CKD (chronic kidney disease), stage IV Current Visit: Yes Status: Chronic (8) Seizure disorder Current Visit: No Status: Chronic - Time Spent With Patient Total time spent is greater than 50% in coordination of care (as documented) at patient's floor/unit and/or counseling patient: - Attending Attestation I examined this patient and my medical decision-making was reviewed with the Resident Physician Dr. Riley. I agree with the documented findings, disposition and treatment plan as described except to the extent set forth below. patient was seen and examined at bedside sister at bedside. all questions answered. she reports that she signed out AMA from the residential because she is tired of being at nursing homes and wanted to go back to her house. she reports that she has been in/out of NH for the past 2 years. Prior to being admitted she reports that she was laying in bed and her liquid center assembler had just cleaned her room and she told the hospital not to place the garbage can Her bed however the garbage cans were placed next to Her bed and she accidentally stepped into the garbage can causing her to fall forward onto her right shoulder. she has some pain in the shoulder denies excessive bruising or loss of functions, denies numbness or tingling of her extremity. She denies any chest pain or shortness of breath or palpitations prior to fall. Denies diaphoresis or head trauma. she has not taken any of her insulin or BP medications for the past 2 days because she did not have her medications. she was found to be in a hyperosmolar ketotic state with hypertensive urgency and was admitted for further management. PMHx, Social Hx and family hx as above VS revirewed obese, NAD, speaks in full sentences decreased heart sounds secondary to body habitus, no wheezing or crackles RRR s1 and s2 MSK: RLE swelling more than left ( chronic) axox3 moves all extremities, strength is 5/5 through out. S/p mechanical fall: head CT negative - Pt/ot consult DKA/hyperosmolar state secondary to non-comliance to medication: was treated wit h IVF and insulin Drip and DKA protocol was followed- was bridged with home insulin continue to monitor glucose closely and adjust insulin as per fingersticks. continue ADA diet hypertensive urgency due to medication non-compliance: BP 228/98 on arrival resume home medications if not CI UTI: started on ceftriaxone follow cx hypophosphatemia: replaced CKD 3 : cr at baseline continue to monitor renal functions shoulder trauma post fall: Xray negative for acute abnormality seizure disorder: continue home medications. DVT prophylaxis: on eliquis further plan and diagnosis as above documented by resident
[2018-11-19] MEDS ORDERED: Insulin Regular, Human 100 UNIT/ML IV PRN (08:11)
[2018-11-19] MEDS ORDERED: *HR* Metoprolol 5 MG/5 ML VIAL IVP ONE (08:11)
[2018-11-19] MEDS ORDERED: Naloxone 0.4 MG/ML INJ IVP PRN (08:11)
[2018-11-19] MEDS ORDERED: *HR* Dextrose 50 % in Water (Syg) 50 ML SYRINGE IVP PRN ×2 (08:11→11:18)
[2018-11-19] MEDS ORDERED: Ondansetron 4 MG/2 ML VIAL IVP PRN (08:11)
[2018-11-19] MEDS: Apixaban 5 MG TABLET PO SCH ×2 (08:53→20:47)
[2018-11-19] MEDS ORDERED: D5% in 0.45% NACL w KCl 20 MEQ/1,000 ML MLS IVC PRN (10:23)
[2018-11-19 10:25] LABS: Estimated Average Glucose 203 mg/dl; Hemoglobin A1C 8.7 %
[2018-11-19 10:35] LABS: Prothrombin Time 11.7 Seconds (9.4-12.1)
[2018-11-19] MEDS: 0.9 % Sodium Chloride w KCl 20 MEQ/1,000 ML MLS IVC SCH ×2 (10:45→14:05)
--- NOTE | 2018-11-19 10:46 | Electrocardiograph Report ---
[place] [id number] Test Date: 2018-11-19 Pat Name: Evie Valladares Department: EXAM1 Room: [facility] Gender: F Voltage Tester: : 1955 Requested By: Joni Tai Order Number: [id number] Reading MD: Rhoda Girard Measurements Intervals [place] Rate: 82 P: 8 [place]: 167 QRS: -22 QRSD: 95 T: 39 QT: 404 QTc: 472 Interpretive Statements Sinus rhythm Left ventricular hypertrophy Anterior Q waves, possibly due to LVH Baseline wander in lead(s) V1 Electronically Signed On 11-19-2018 10:45:06 EDT by Rhoda Girard
[2018-11-19 11:08] LABS: Calcium 9.3 mg/dL (8.6-10.3); Magnesium 1.9 mg/dL (1.6-2.6); Phosphorous 2.4 mg/dL (2.7-4.5); Potassium 3.7 mEq/L (3.5-5.1)
[2018-11-19] MEDS ORDERED: D5% in Water 1,000 ML IVC PRN (11:18)
[2018-11-19] MEDS ORDERED: Dextrose Gel 15 GM/37.5 ML TUBE PO PRN ×2 (11:18)
[2018-11-19] MEDS: Insulin NPH 100 UNIT/ML (x5UNIT) SQ SCH ×2 (11:49→20:49)
[2018-11-19] MEDS: amLODIPine 5 MG TABLET PO SCH (12:02)
[2018-11-19] MEDS: Gabapentin 100 MG CAPSULE PO SCH ×2 (12:03→20:47)
[2018-11-19] MEDS: levETIRAcetam 250 MG TABLET PO SCH ×2 (12:03→20:48)
[2018-11-19] MEDS: Insulin LISPRO 300 UNITS/3 ML VIAL SQ SCH ×3 (12:03→20:50)
[2018-11-19] MEDS: lamoTRIgine 100 MG TABLET PO SCH ×2 (12:03→20:47)
[2018-11-19 14:51] LABS: Calcium 8.8 mg/dL (8.6-10.3); Potassium 4.2 mEq/L (3.5-5.1)
[2018-11-19] MEDS: hydrALAZINE 25 MG TABLET PO SCH ×2 (17:22→20:35)
[2018-11-19] MEDS: cefTRIAXone 2,000 MG in 0.9 % Sodium Chloride Mini Bag 100 ML IVPB SCH (17:22)
[2018-11-20 04:57] LABS: Hematocrit 29.2 % (35.3-44.9); Hemoglobin 8.8 g/dL (11.5-15.4); Mean Corpuscular HGB Conc 30.1 g/dL (31.6-35.5); Mean Corpuscular Hemoglobin 25.7 pg (28.0-33.3); Mean Corpuscular Volume 85.4 fL (83.0-100.0); Mean Platelet Volume 9.9 fL (9.4-12.4); Platelet Count 247 K/mcL (140-400); Red Blood Count 3.42 M/mcL (3.82-4.97); Red Cell Distribution Width 15.9 % (11.5-14.5)
[2018-11-20 05:15] LABS: Calcium 8.9 mg/dL (8.6-10.3); Potassium 3.9 mEq/L (3.5-5.1)
[2018-11-20] MEDS: Nystatin POWDER 30 GM BOTTLE TP SCH ×3 (06:15→21:38)
--- NOTE | 2018-11-20 08:37 | Internal Med Progress Note ---
<Jacqueline Rojas - Last Filed: 11/20/18 15:34> Hospitalist Progress Note - Encounter Date of Encounter: 11/20/18 Time of Encounter: 15:30 - Exam Vitals: Temp Pulse Resp BP Pulse Ox 97.9 F 78 18 122/61 97 11/20/18 14:09 11/20/18 14:09 11/20/18 14:09 11/20/18 14:09 11/20/18 14:09 - Assessment and Plan (1) Obesity (BMI 30-39.9) Current Visit: Yes Status: Chronic (2) HLD (hyperlipidemia) Current Visit: No Status: Chronic (3) Hx of deep venous thrombosis Current Visit: No Status: Chronic (4) Diabetic ketoacidosis Current Visit: Yes Status: Acute (5) Falls Current Visit: Yes Status: Acute (6) Hypertensive crisis Current Visit: Yes Status: Acute (7) CKD (chronic kidney disease), stage IV Current Visit: Yes Status: Chronic (8) Seizure disorder Current Visit: No Status: Chronic - Time Spent with Patient Total time spent is greater than 50% in coordination of care (as documented) at patient's floor/unit and/or counseling patient: Internal Medicine: Result - Labs CBC & Chem 7: 11/20/18 04:40 11/20/18 04:40 Labs: Short CBC 11/20/18 Range/Units 04:40 WBC 9.5 (4.3-11.1) K/mcL Hgb 8.8 L (11.5-15.4) g/dL Hct 29.2 L (35.3-44.9) % Plt Count 247 (140-400) K/mcL BMP 11/20/18 04:40 Sodium 145 Potassium 3.9 Chloride 112 H Carbon Dioxide 26 BUN 42 H Creatinine 2.08 H Glucose 136 H Calcium 8.9 - ABG Interpretation ABG results: PT/INR, D-dimer PT 11.7 Seconds (9.4-12.1) 11/19/18 09:49 Consult Discharge Plan - Plan Referrals: Ariel Funes MD [Primary Care Provider] - - Attending Attestation I saw evaluated and examined this patient and my medical decision-making was reviewed with the Resident Physician, Starr Pinon. I agree with the documented findings, disposition and treatment plan as described except to any changes set forth below. We independently had [id number] contact with the patient. Patient is awake and alert. Comfortable. Doing much better today. She reports that she has had trouble with dizziness occasionally when she takes her antihypertensive medications. She has not been taking any of her medications since she left the shelter. No chest pain or palpitations. No nausea or vomiting. General: Patient is alert, no acute distress, oriented x 3, obese ENT: Mucous membranes moist Respiratory: Good respiratory effort. Normal breath sounds. No wheezing or crackles. Cardiovascular: Regular rate and rhythm. s1 and s2 normal No clicks, rubs, gallops, or murmurs. No pedal edema Abdomen: Abdomen is soft, nontender. Bowel sounds are present Musculoskeletal: Spontaneously moving all extremities Skin: warm, dry, intact. Neuro: Alert oriented x 3 normal cranial nerves, no focal deficits Diabetic ketoacidosis: Now resolved. Continue monitoring blood sugars. Continue sliding scale insulin. Patient will need prescriptions for her insulin and that all her other medications at discharge. Hypertensive crisis now resolved. Blood pressure is better controlled. We will monitor for dizziness. Also check orthostatic blood pressure in the morning. Chronic kidney disease stage IV: Creatinine at baseline. Follow up with nephrol cheryl after discharge. Recurrent falls: CT of the head did not show any bleed. Patient is awake alert and oriented. Monitor for mental status changes especially as patient is on Eliquis. If any changes noted, we will need repeat CT scan of the head. Hx of DVT: On Eliquis. Seizure disorder: Continue Lamictal <Starr Ac - Last Filed: 11/20/18 22:09> Hospitalist Progress Note - Encounter Date of Encounter: 11/20/18 Time of Encounter: 10:00 - Subjective Interval History: Patient seen and examined. She says she feels fine today. Denies chest pain, confusion, SOB, nausea, vomiting. She is tolerating her diet. - Exam Vitals: Temp Pulse Resp BP Pulse Ox 97.2 F L 67 16 156/64 96 11/20/18 03:45 11/20/18 06:00 11/20/18 06:00 11/20/18 04:00 11/20/18 06:00 Exam: General: vital signs noted, no acute distress, non-toxic appearance, AAO x3 Head: normocephalic, atraumatic Eyes: EOMI, PERRL, sclera anicteric ENT: moist/dry mucous membranes Cardio: RRR; no murmurs, gallops, rubs; + S1/S2; no edema Chest: symmetric chest rise Pulm: CTAB, no wheezes/rhonchi/rales, no respiratory distress, Abd: soft, nontender, nondistended, normal bowel sounds, no rebound/rigidity/guarding Neuro: no focal deficits, speech deficit, facial droop, moves all extremities spontaneously; mentating well Ext: no lower extremity edema MSK: no visible deformities, no joint swelling Psych: normal mood and affect, cooperative, answers questions appropriately, doesnt appear anxious or agitated Skin: warm, dry, intact; no rash, vesicles, mottling, pallor - Assessment and Plan (1) Diabetic ketoacidosis Current Visit: Yes Status: Resolved Assessment and Plan: - Anion gap was 17 on admission, beta hydroxybutyric acid is elevated. - Resolved. Gap closed. Transitioned to subcutaneous heparin - Tolerating diet. - Hgb A1c is 8.7 this admission - Patient previously took Insulin NPH 25mg BID plus SSI ath the nursing facility - Etiology is medication non compliance vs UTI - blood sugars now running in 100s - Potassium 3.9, Completed fluids per protocol - Patient left nursing facility AMA has been off insulin for 2 days. Plan - Continue SSI low regimen and basal insulin 25 units BID (home dose) - ADA diet - Discussed importance of medication compliance - UTI treatment as below (2) UTI (urinary tract infection) Current Visit: Yes Status: Acute Assessment and Plan: - UA on admission suggestive for possible infection - Culture not obtained, will order - Started on rocephin, day 2 - Will monitor culture results - has a history of retention (3) HTN (hypertension) Current Visit: Yes Status: Chronic Assessment and Plan: well controlled has PRN hydralazine admitted with hypertensive crisis which has resolved also non complaint in these meds- amlodipine, isosorbide, lasix, hydralazine which are home meds. have been restarted (4) HLD (hyperlipidemia) Current Visit: Yes Status: Chronic Assessment and Plan: continue statin (5) Hx of deep venous thrombosis Current Visit: Yes Status: Chronic Assessment and Plan: on eliquis, will continue (6) Anxiety and depression Current Visit: Yes Status: Chronic Assessment and Plan: continue home meds (7) Hypertensive crisis Current Visit: Yes Status: Resolved Assessment and Plan: resolved 228/98 on admission currently well controlled as per HTN diagnosis non compliant, no home med in 2 days. has left AMA from nursing facility (8) Falls Current Visit: Yes Status: Acute Assessment and Plan: Reported falls at home PT/OT consulted- recommending SNF. SW consulted due to leaving from SNF previously. CT head negative (9) CKD (chronic kidney disease), stage IV Current Visit: Yes Status: Chronic Assessment and Plan: Renal function at baseline. Follows with Dr. Glass as outpatient Cr this AM of 2.08 Avoid nephrotoxins, renal dosing Received fluids for DKA (10) Seizure disorder Current Visit: Yes Status: Chronic Assessment and Plan: - Continue home meds of keppra and lamictal - No reported seizures at this visit. - Continue to monitor - Seizure precautions (11) Type 2 diabetes mellitus Current Visit: Yes Status: Chronic Assessment and Plan: as above DVT Prophylaxis: eliquis - Time Spent with Patient Total time spent is greater than 50% in coordination of care (as documented) at patient's floor/unit and/or counseling patient: Internal Medicine: Result - Labs CBC & Chem 7: 11/20/18 04:40 11/20/18 04:40 Labs: Short CBC 11/20/18 Range/Units 04:40 WBC 9.5 (4.3-11.1) K/mcL Hgb 8.8 L (11.5-15.4) g/dL Hct 29.2 L (35.3-44.9) % Plt Count 247 (140-400) K/mcL BMP 11/19/18 11/19/18 11/20/18 09:49 13:58 04:40 Sodium 139 143 145 Potassium 3.7 D 4.2 3.9 Chloride 104 109 H 112 H Carbon Dioxide 24 21 L 26 BUN 43 H 41 H 42 H Creatinine 1.91 H 1.78 H 2.08 H Glucose 379 H 119 H 136 H Calcium 9.3 8.8 8.9 - ABG Interpretation ABG results: PT/INR, D-dimer PT 11.7 Seconds (9.4-12.1) 11/19/18 09:49 - Impressions Impressions Head CT 11/19/18 12:30 IMPRESSION: No acute intracranial abnormality. D/ / Lenin Clay MD / Lenin Clay MD Interpreting Provider: Lenin Clay MD <Jacqueline Rojas - Last Filed: 11/20/18 15:34> (2) HLD (hyperlipidemia) Qualifiers: Hyperlipidemia type: pure hypercholesterolemia Qualified Code(s): E78.00 - Pure hypercholesterolemia, unspecified; E78.0 - Pure hypercholesterolemia (4) Diabetic ketoacidosis Qualifiers: Diabetes mellitus type: type 2 Diabetes mellitus complication detail: without coma Qualified Code(s): E11.10 - Type 2 diabetes mellitus with ketoacidosis without coma (5) Falls Qualifiers: Encounter type: initial encounter Qualified Code(s): W19.XXXA - Unspecified fall, initial encounter <Starr Ac - Last Filed: 11/20/18 22:09> (1) Diabetic ketoacidosis Qualifiers: Diabetes mellitus type: type 2 Diabetes mellitus complication detail: without coma Qualified Code(s): E11.10 - Type 2 diabetes mellitus with ketoacidosis without coma (2) UTI (urinary tract infection) Qualifiers: Urinary tract infection type: acute cystitis Hematuria presence: without hematuria Qualified Code(s): N30.00 - Acute cystitis without hematuria (3) HTN (hypertension) Qualifiers: Hypertension type: essential hypertension Qualified Code(s): I10 - Essential (primary) hypertension (4) HLD (hyperlipidemia) Qualifiers: Hyperlipidemia type: pure hypercholesterolemia Qualified Code(s): E78.00 - Pure hypercholesterolemia, unspecified; E78.0 - Pure hypercholesterolemia (8) Falls Qualifiers: Encounter type: initial encounter Qualified Code(s): W19.XXXA - Unspecified fall, initial encounter (11) Type 2 diabetes mellitus Qualifiers: Diabetes mellitus commercial lines account manager insulin use: with commercial lines account manager use Diabetes mellitus complication status: with kidney complications Diabetes mellitus complication detail: with chronic kidney disease Chronic kidney disease stage: stage 4 (severe) Qualified Code(s): E11.22 - Type 2 diabetes mellitus with diabetic chronic kidney disease; N18.4 - Chronic kidney disease, stage 4 (severe); N18.4 - Chronic kidney disease, stage 4 (severe); N18.4 - Chronic kidney disease, stage 4 (severe); N18.4 - Chronic kidney disease, stage 4 (severe); Z79.4 - care home (current) use of insulin; Z79.4 - [facility] (current) use of insulin; Z79.4 - [facility] distribution center (current) use of insulin; Z79.4 - [facility] (current) use of insulin
[2018-11-20] MEDS: hydrALAZINE 25 MG TABLET PO SCH ×3 (08:43→21:35)
[2018-11-20] MEDS: Apixaban 5 MG TABLET PO SCH ×2 (08:44→21:36)
[2018-11-20] MEDS: Gabapentin 100 MG CAPSULE PO SCH ×2 (08:44→21:34)
[2018-11-20] MEDS: amLODIPine 5 MG TABLET PO SCH (08:44)
[2018-11-20] MEDS: lamoTRIgine 100 MG TABLET PO SCH ×2 (08:44→21:36)
[2018-11-20] MEDS: Cholecalciferol (D-3) 1,000 UNIT TABLET PO SCH (08:44)
[2018-11-20] MEDS: Insulin NPH 100 UNIT/ML (x5UNIT) SQ SCH ×2 (08:48→21:26)
[2018-11-20] MEDS: Insulin LISPRO 300 UNITS/3 ML VIAL SQ SCH ×4 (08:49→21:26)
[2018-11-20] MEDS: levETIRAcetam 250 MG TABLET PO SCH ×2 (11:06→21:35)
[2018-11-20] MEDS: cefTRIAXone 2,000 MG in 0.9 % Sodium Chloride Mini Bag 100 ML IVPB SCH (14:16)
[2018-11-21] MEDS: hydrALAZINE 25 MG TABLET PO SCH ×2 (08:02→17:16)
[2018-11-21 08:03] LABS: Basophils % 0.4 %; Eosinophils # 0.3 K/mcL (0.0-0.6); Eosinophils % 3.4 %; Hematocrit 29.6 % (35.3-44.9); Immature Granulocytes % 0.3 % (0-4); Lymphocytes # 1.2 K/mcL (0.6-4.6); Lymphocytes % 16.3 %; Mean Corpuscular HGB Conc 30.4 g/dL (31.6-35.5); Mean Corpuscular Hemoglobin 26.2 pg (28.0-33.3); Mean Platelet Volume 10.6 fL (9.4-12.4); Monocytes # 0.6 K/mcL (0.0-1.3); Monocytes % 8.2 %; Neutrophils # 5.3 K/mcL (1.6-8.9); Platelet Count 264 K/mcL (140-400); Red Blood Count 3.44 M/mcL (3.82-4.97); Segmented Neutrophils % 71.4 %
[2018-11-21] MEDS: levETIRAcetam 250 MG TABLET PO SCH (08:03)
[2018-11-21] MEDS: lamoTRIgine 100 MG TABLET PO SCH (08:03)
[2018-11-21] MEDS: Apixaban 5 MG TABLET PO SCH (08:03)
[2018-11-21] MEDS: amLODIPine 5 MG TABLET PO SCH (08:04)
[2018-11-21] MEDS: Gabapentin 100 MG CAPSULE PO SCH (08:04)
[2018-11-21] MEDS: Cholecalciferol (D-3) 1,000 UNIT TABLET PO SCH (08:04)
[2018-11-21] MEDS: Nystatin POWDER 30 GM BOTTLE TP SCH ×2 (08:05→17:17)
[2018-11-21] MEDS: Insulin NPH 100 UNIT/ML (x5UNIT) SQ SCH (08:05)
[2018-11-21] MEDS: Insulin LISPRO 300 UNITS/3 ML VIAL SQ SCH ×2 (08:06→11:55)
[2018-11-21 08:19] LABS: Potassium 4.4 mEq/L (3.5-5.1)
[2018-11-21 14:15] VITALS: BP 122/67
--- NOTE | 2018-11-21 15:07 | Discharge Summary ---
<Jean Yu - Last Filed: 11/21/18 17:27> Orders not resulted at time of discharge: Pending orders 11/20/18 04:15 Culture,Urine [RM] Routine Date of Encounter: 11/21/18 - Discharge Diagnosis (1) Obesity (BMI 30-39.9) Priority: Secondary Status: Chronic (2) HLD (hyperlipidemia) Priority: Secondary Status: Chronic Qualifiers: Hyperlipidemia type: mixed hyperlipidemia Qualified Code(s): E78.2 - Mixed hyperlipidemia (3) Hx of deep venous thrombosis Priority: Secondary Status: Chronic (4) Diabetic ketoacidosis Priority: Primary Status: Resolved Qualifiers: Diabetes mellitus type: type 2 Diabetes mellitus complication detail: without coma Qualified Code(s): E11.10 - Type 2 diabetes mellitus with ketoacidosis without coma (5) Falls Priority: Secondary Status: Chronic Qualifiers: Encounter type: subsequent encounter Qualified Code(s): W19.XXXD - Unspecified fall, subsequent encounter (6) Hypertensive crisis Priority: Secondary Status: Resolved (7) CKD (chronic kidney disease), stage IV Priority: Secondary Status: Chronic (8) Seizure disorder Priority: Secondary Status: Chronic (9) HTN (hypertension) Priority: Secondary Status: Chronic Qualifiers: Hypertension type: essential hypertension Qualified Code(s): I10 - Essential (primary) hypertension (10) Bipolar depression Priority: Secondary Status: Chronic Hospital course: Ms. Valladares is a 63 year old female - Time Spent with Patient Total time spent providing and/or coordinating discharge services: 38min - Discharge Medications Prescriptions: New Albuterol Sulfate [Albuterol Inhaler] 2 puff IH Q6H PRN #1 inhaler PRN Reason: Shortness Of Breath Apixaban [Eliquis] 2.5 mg PO BID #30 tablet Continued Acetaminophen [Tylenol] 650 mg PO Q6HR PRN PRN Reason: Pain Epoetin Abdifatah [Procrit] 10,000 unit IM Q14D Amlodipine Besylate 5 mg PO DAILY #30 tablet Glucagon,Human Recombinant [Glucagon Emergency Kit] 1 mg IJ ONCE #1 kit Insulin NPH, HUMAN [HumuLIN N] 25 units SQ BID 30 Days vial hydrALAZINE [HydrALAZINE] 75 mg PO TID #90 tablet Ferrous Sulfate [Iron] 325 mg PO BID #60 tablet Isosorbide DInitrate [Isordil] 10 mg PO TID #30 tablet lamoTRIgine [Lamotrigine] 200 mg PO BID #60 tablet Furosemide [Lasix] 20 mg PO DAILY #30 tablet Escitalopram [Lexapro] 10 mg PO DAILY #30 tablet Atorvastatin [Lipitor] 40 mg PO HS #30 tablet Gabapentin [Neurontin] 100 mg PO BID #60 capsule Insulin ASPART [Novolog Flexpen] 3 - 24 unit SQ TIDAC 30 Days insuln.pen MDD per sliding scale Nystatin POWDER [Nystop] 1 appl TP TID PRN #1 bottle PRN Reason: Skin Irritation Paricalcitol 1 mcg PO DAILY #30 capsule levETIRAcetam [Roweepra] 750 mg PO BID #60 tablet Benzonatate [Tessalon] 200 mg PO TID PRN #60 capsule PRN Reason: Cough Cholecalciferol (D-3) [Vitamin D] 1,000 unit PO DAILY #30 tablet Discontinued Albuterol Sulfate [Proair Hfa] 2 puff IH Q6H PRN PRN Reason: Shortness Of Breath Apixaban [Eliquis] 2.5 mg PO BID #60 tablet Home Medications: Acetaminophen [Tylenol] 650 mg PO Q6HR PRN 11/19/18 [History] Epoetin Abdifatah [Procrit] 10,000 unit IM Q14D 11/19/18 [History] Albuterol Sulfate [Albuterol Inhaler] 2 puff IH Q6H PRN #1 inhaler 11/21/18 [Rx] Amlodipine Besylate 5 mg PO DAILY #30 tablet 11/21/18 [Rx] Apixaban [Eliquis] 2.5 mg PO BID #30 tablet 11/21/18 [Rx] Atorvastatin [Lipitor] 40 mg PO HS #30 tablet 11/21/18 [Rx] Benzonatate [Tessalon] 200 mg PO TID PRN #60 capsule 11/21/18 [Rx] Cholecalciferol (D-3) [Vitamin D] 1,000 unit PO DAILY #30 tablet 11/21/18 [Rx] Escitalopram [Lexapro] 10 mg PO DAILY #30 tablet 11/21/18 [Rx] Ferrous Sulfate [Iron] 325 mg PO BID #60 tablet 11/21/18 [Rx] Furosemide [Lasix] 20 mg PO DAILY #30 tablet 11/21/18 [Rx] Gabapentin [Neurontin] 100 mg PO BID #60 capsule 11/21/18 [Rx] Glucagon,Human Recombinant [Glucagon Emergency Kit] 1 mg IJ ONCE #1 kit 11/21/18 [Rx] Insulin ASPART [Novolog Flexpen] 3 - 24 unit SQ TIDAC 30 Days insuln.pen MDD per sliding scale 11/21/18 [Rx] Insulin NPH, HUMAN [HumuLIN N] 25 units SQ BID 30 Days vial 11/21/18 [Rx] Isosorbide DInitrate [Isordil] 10 mg PO TID #30 tablet 11/21/18 [Rx] Nystatin POWDER [Nystop] 1 appl TP TID PRN #1 bottle 11/21/18 [Rx] Paricalcitol 1 mcg PO DAILY #30 capsule 11/21/18 [Rx] hydrALAZINE [HydrALAZINE] 75 mg PO TID #90 tablet 11/21/18 [Rx] lamoTRIgine [Lamotrigine] 200 mg PO BID #60 tablet 11/21/18 [Rx] levETIRAcetam [Roweepra] 750 mg PO BID #60 tablet 11/21/18 [Rx] Allergies/Adverse Reactions: Allergy/AdvReac Type Severity Reaction Status Date / Time acetaminophen [From Percocet] Allergy Hallucinati Verified 08/03/17 12:16 ng adhesive Allergy Rash Verified 08/03/17 12:16 codeine Allergy Rash Verified 08/03/17 12:16 ibuprofen [From Advil] Allergy Rash Verified 08/03/17 12:16 NSAIDS (Non-Steroidal Allergy Rash Verified 08/03/17 12:16 Anti-Inflamma Glucagon AdvReac Confusion Verified 08/03/17 12:16 oxycodone [From Percocet] AdvReac Hallucinati Verified 08/03/17 12:16 ng Date of admission: 11/19/18 10:01 Primary care physician: Ariel Funes MD Consults: 11/19/18 08:11 Consult to Occupational Therapy [CONS] Routine Comment: Evaluate, develop and implement POC Reason for Consult: falls Does patient have active BEDREST order?: No Is patient medically & hemodynamically stable?: Yes Patient assessed for mobility or mobilized this visit?: No Consult to Physical Therapy [CONS] Routine Comment: Evaluate, develop and implement POC Reason for Consult: falls Does patient have active BEDREST order?: No Is patient medically & hemodynamically stable?: Yes Patient assessed for mobility or mobilized this visit?: No 11/19/18 08:16 Consult to Chief Electrician [CONS] Routine Reason for SW Consult: Placement, left [facility] and Signature AMA 11/19/18 10:24 Consult for Pharmacy Education [CONS] Routine Reason for Consult: DKA Call Completed: No - Constitutional Vitals: Temp Pulse Resp BP Pulse Ox 98.1 F 83 16 122/67 96 11/21/18 14:10 11/21/18 14:10 11/21/18 14:10 11/21/18 14:10 11/21/18 14:10 - Patient Status Disposition: Home Health Service Condition: Fair - Ambulatory Orders Ambulatory Orders: Basic Metabolic Panel [CHEM] Time Frame: 2 Weeks, Location: N/A - Discharge Instructions Instructions: How to Check Your Blood Sugar (DC), Diabetic Ketoacidosis (DC), Diabetes Mellitus Type 2 in Adults (DC), Chronic Hypertension (DC) Follow Up With: Ariel Funes MD [Primary Care Provider] - (Web request entered. Office will call with date and time of appointment) Eliz Gilbert MD [Partnered Physician] - 12/26/18 2:30 pm Forms: ED Satisfaction Letter, Work/School Release - Attending Attestation I examined this patient and my medical decision-making was reviewed with the Resident Physician on 11/21/18. I agree with the documented findings, disposition and treatment plan as described except to the extent set forth below. Ms Valladares has been admitted for acute DKA and uncontrolled HTN. She had not had her home meds. She has been restarted on her meds and is better controlled. She is afebrile and ready for discharge home. She refuses SNF but is willing to have some HHC. Exam alert BP better this afternoon Mucus membranes dry Heart not tachy No wheeze abd soft Plan D/C home today on home meds Follow up with nephrology in 2-4 weeks Recheck labs soon Further diagnoses and plan as above. <Starr Ac - Last Filed: 11/23/18 22:59> - NOTES TO OUTPATIENT PROVIDER Notes to Outpatient Provider: Patient presented to hospital for DKA after leaving AMA from nursing facility and being off insulin. ALso noted to have hypertensive crisis after not taking BP meds for 2 days Orders not resulted at time of discharge: Pending orders 11/20/18 04:15 Culture,Urine [RM] Routine Date of Encounter: 11/23/18 Time of Encounter: 09:30 - Discharge Diagnosis (1) Diabetic ketoacidosis Priority: Primary Status: Resolved Qualifiers: Diabetes mellitus type: type 2 Diabetes mellitus complication detail: without coma Qualified Code(s): E11.10 - Type 2 diabetes mellitus with ketoacidosis without coma (2) UTI (urinary tract infection) Priority: Secondary Status: Acute Qualifiers: Urinary tract infection type: acute cystitis Hematuria presence: without hematuria Qualified Code(s): N30.00 - Acute cystitis without hematuria (3) HTN (hypertension) Priority: Secondary Status: Chronic Qualifiers: Hypertension type: essential hypertension Qualified Code(s): I10 - Essential (primary) hypertension (4) HLD (hyperlipidemia) Priority: Secondary Status: Chronic Qualifiers: Hyperlipidemia type: mixed hyperlipidemia Qualified Code(s): E78.2 - Mixed hyperlipidemia (5) Hx of deep venous thrombosis Priority: Secondary Status: Chronic (6) Anxiety and depression Priority: Secondary Status: Chronic (7) Hypertensive crisis Priority: Secondary Status: Resolved (8) Falls Priority: Secondary Status: Chronic Qualifiers: Encounter type: subsequent encounter Qualified Code(s): W19.XXXD - Unspecified fall, subsequent encounter (9) CKD (chronic kidney disease), stage IV Priority: Secondary Status: Chronic (10) Seizure disorder Priority: Secondary Status: Chronic (11) Type 2 diabetes mellitus Priority: Secondary Status: Chronic Qualifiers: Diabetes mellitus retirement insulin use: with retirement use Diabetes mellitus complication status: with kidney complications Diabetes mellitus complication detail: with chronic kidney disease Chronic kidney disease stage: stage 4 (severe) Qualified Code(s): E11.22 - Type 2 diabetes mellitus with diabetic chronic kidney disease; N18.4 - Chronic kidney disease, stage 4 (severe); Z79.4 - [facility] (current) use of insulin Hospital course: Ms. Valladares is a 63 year old female with a past medical history of diabetes mellitus type 2, hypertension, hyperlipidemia, CKD stage IV, seizure disorder, and Eliquis use for history of recurrent DVTs who presented to the ED complaining of elevated blood pressure after being without meds for two days since signing out AMA from [facility]. In the ED, labs showed evidence of DKA. BP was 228/98, labs showed DKA with AG of 17, baseline anemia and kidney disease. UA showed possible infection. She was started on an insulin gtt and DKA protocol. BP improved after restarting home medications. Started on rocephin for possible UTI. DKA resolved with insulin and urine culture showed no growth. On day of discharge, patient's complaints of weakness had resolved and labs and vitals returned to baseline limits. PT and OT recommended SNF however patient refused and is willing to have home health. She will be discharged home in stable medical condition with labs as an outpatient and follow up with PCP. Discharge discussed with: patient, social work - Time Spent with Patient Total time spent providing and/or coordinating discharge services: Date of admission: 11/19/18 10:01 Primary care physician: Ariel Funes MD Consults: 11/19/18 08:11 Consult to Occupational Therapy [CONS] Routine Comment: Evaluate, develop and implement POC Reason for Consult: falls Does patient have active BEDREST order?: No Is patient medically & hemodynamically stable?: Yes Patient assessed for mobility or mobilized this visit?: No Consult to Physical Therapy [CONS] Routine Comment: Evaluate, develop and implement POC Reason for Consult: falls Does patient have active BEDREST order?: No Is patient medically & hemodynamically stable?: Yes Patient assessed for mobility or mobilized this visit?: No 11/19/18 08:16 Consult to Chief Electrician [CONS] Routine Reason for SW Consult: Placement, left [facility] and Signature AMA 11/19/18 10:24 Consult for Pharmacy Education [CONS] Routine Reason for Consult: DKA Call Completed: No Discharging clinician: Starr Ac Anticipated date of discharge: 11/23/18 - Constitutional Vitals: Temp Pulse Resp BP Pulse Ox 98.1 F 83 16 122/67 96 11/21/18 14:10 11/21/18 14:10 11/21/18 14:10 11/21/18 14:10 11/21/18 14:10 General appearance: Present: cooperative, pleasant, no acute distress, obese, answers questions appropriately Exam: General: vital signs noted, no acute distress, non-toxic appearance, AAO x3 Head: normocephalic, atraumatic Eyes: EOMI, PERRL, sclera anicteric ENT: moist mucous membranes Cardio: RRR; no murmurs, gallops, rubs; + S1/S2; no edema Chest: symmetric chest rise Pulm: CTAB, no wheezes/rhonchi/rales, no respiratory distress, Abd: soft, nontender, nondistended, normal bowel sounds, no rebound/rigidity/guarding Neuro: no focal deficits, speech deficit, facial droop, moves all extremities spontaneously; mentating well Ext: no lower extremity edema MSK: no visible deformities, no joint swelling Psych: normal mood and affect, cooperative, answers questions appropriately, doesnt appear anxious or agitated Skin: warm, dry, intact; no rash, vesicles, mottling, pallor - Patient Status Overall status at discharge: patient is progressing back to baseline - Diet and Activity Activity: increase activity as tolerated, return to work once cleared by your PCP/specialist, resume usual activities as tolerated Diet: diabetic diet, low fat, low cholesterol, low salt diet
--- NOTE | 2018-11-21 15:08 | Physician Discharge Referral ---
Home Health/Hosp Referral Info Transfer to: Home Health - Diagnosis (1) Diabetic ketoacidosis Priority: Primary Status: Resolved (2) UTI (urinary tract infection) Priority: Secondary Status: Acute (3) HTN (hypertension) Priority: Secondary Status: Chronic (4) HLD (hyperlipidemia) Priority: Secondary Status: Chronic (5) Hx of deep venous thrombosis Priority: Secondary Status: Chronic (6) Anxiety and depression Priority: Secondary Status: Chronic (7) Hypertensive crisis Priority: Primary Status: Resolved (8) Falls Priority: Secondary Status: Chronic (9) CKD (chronic kidney disease), stage IV Priority: Secondary Status: Chronic (10) Seizure disorder Priority: Secondary Status: Chronic (11) Type 2 diabetes mellitus Priority: Secondary Status: Chronic - Respiratory Orders Smoking Cessation: Smoking cessation has been advised. For more information, call the [place] Tobacco Quit Line at 7-883-MBSN-NOW. - Diet/Nutrition Diet/Nutrition Orders: Renal, Cardiac - Services Needed Following services are medically necessary services: Nursing, Physical Therapy, Occupational Therapy - Transfer Medications Prescriptions: Albuterol Sulfate [Albuterol Inhaler] 2 puff IH Q6H PRN #1 inhaler PRN Reason: Shortness Of Breath Amlodipine Besylate 5 mg PO DAILY #30 tablet Apixaban [Eliquis] 2.5 mg PO BID #30 tablet Glucagon,Human Recombinant [Glucagon Emergency Kit] 1 mg IJ ONCE #1 kit Insulin NPH, HUMAN [HumuLIN N] 25 units SQ BID 30 Days vial hydrALAZINE [HydrALAZINE] 75 mg PO TID #90 tablet Ferrous Sulfate [Iron] 325 mg PO BID #60 tablet Isosorbide DInitrate [Isordil] 10 mg PO TID #30 tablet lamoTRIgine [Lamotrigine] 200 mg PO BID #60 tablet Furosemide [Lasix] 20 mg PO DAILY #30 tablet Escitalopram [Lexapro] 10 mg PO DAILY #30 tablet Atorvastatin [Lipitor] 40 mg PO HS #30 tablet Gabapentin [Neurontin] 100 mg PO BID #60 capsule Insulin ASPART [Novolog Flexpen] 3 - 24 unit SQ TIDAC 30 Days insuln.pen MDD per sliding scale Nystatin POWDER [Nystop] 1 appl TP TID PRN #1 bottle PRN Reason: Skin Irritation Paricalcitol 1 mcg PO DAILY #30 capsule levETIRAcetam [Roweepra] 750 mg PO BID #60 tablet Benzonatate [Tessalon] 200 mg PO TID PRN #60 capsule PRN Reason: Cough Cholecalciferol (D-3) [Vitamin D] 1,000 unit PO DAILY #30 tablet Home Medications: Acetaminophen [Tylenol] 650 mg PO Q6HR PRN 11/19/18 [History] Epoetin Abdifatah [Procrit] 10,000 unit IM Q14D 11/19/18 [History] Albuterol Sulfate [Albuterol Inhaler] 2 puff IH Q6H PRN #1 inhaler 11/21/18 [Rx] Amlodipine Besylate 5 mg PO DAILY #30 tablet 11/21/18 [Rx] Apixaban [Eliquis] 2.5 mg PO BID #30 tablet 11/21/18 [Rx] Atorvastatin [Lipitor] 40 mg PO HS #30 tablet 11/21/18 [Rx] Benzonatate [Tessalon] 200 mg PO TID PRN #60 capsule 11/21/18 [Rx] Cholecalciferol (D-3) [Vitamin D] 1,000 unit PO DAILY #30 tablet 11/21/18 [Rx] Escitalopram [Lexapro] 10 mg PO DAILY #30 tablet 11/21/18 [Rx] Ferrous Sulfate [Iron] 325 mg PO BID #60 tablet 11/21/18 [Rx] Furosemide [Lasix] 20 mg PO DAILY #30 tablet 11/21/18 [Rx] Gabapentin [Neurontin] 100 mg PO BID #60 capsule 11/21/18 [Rx] Glucagon,Human Recombinant [Glucagon Emergency Kit] 1 mg IJ ONCE #1 kit 11/21/18 [Rx] Insulin ASPART [Novolog Flexpen] 3 - 24 unit SQ TIDAC 30 Days insuln.pen MDD per sliding scale 11/21/18 [Rx] Insulin NPH, HUMAN [HumuLIN N] 25 units SQ BID 30 Days vial 11/21/18 [Rx] Isosorbide DInitrate [Isordil] 10 mg PO TID #30 tablet 11/21/18 [Rx] Nystatin POWDER [Nystop] 1 appl TP TID PRN #1 bottle 11/21/18 [Rx] Paricalcitol 1 mcg PO DAILY #30 capsule 11/21/18 [Rx] hydrALAZINE [HydrALAZINE] 75 mg PO TID #90 tablet 11/21/18 [Rx] lamoTRIgine [Lamotrigine] 200 mg PO BID #60 tablet 11/21/18 [Rx] levETIRAcetam [Roweepra] 750 mg PO BID #60 tablet 11/21/18 [Rx] Allergies/Adverse Reactions: Allergy/AdvReac Type Severity Reaction Status Date / Time acetaminophen [From Percocet] Allergy Hallucinati Verified 08/03/17 12:16 ng adhesive Allergy Rash Verified 08/03/17 12:16 codeine Allergy Rash Verified 08/03/17 12:16 ibuprofen [From Advil] Allergy Rash Verified 08/03/17 12:16 NSAIDS (Non-Steroidal Allergy Rash Verified 08/03/17 12:16 Anti-Inflamma Glucagon AdvReac Confusion Verified 08/03/17 12:16 oxycodone [From Percocet] AdvReac Hallucinati Verified 08/03/17 12:16 ng Certification: Further, I certify that my clinical findings support that this patient is homebound (i.e. absences from home require considerable and taxing effort and are for medical reasons or scientologist services or infrequently or short duration when for other reasons) because: Homebound Reason: Leaving home requires considerable and taxing effort due to condition Attestation: My signature below is to certify that this patient is under my care and that I, or nurse practitioner, or a physician's pediatric physician assistant working with me, has a [id number] encounter with this patient.
[2018-11-21] MEDS: cefTRIAXone 2,000 MG in 0.9 % Sodium Chloride Mini Bag 100 ML IVPB SCH (17:17)
== END 2018-11-21 17:43 | disposition home health service (06) | DRG 638 ==
LOC: EMEROOARM 03:47 → ICNU 03:47 → SUATTDRO 10:01 → 3ANU 11-20 14:57
PROVIDERS: ADMIT Family Medicine; ATTEND Internal Medicine

== ENCOUNTER 2018-12-13 17:10 | Observation (INO) ==
[2018-12-13] MEDS ORDERED: Naloxone 0.4 MG/ML INJ IVP ONE (17:20)
[2018-12-13] MEDS ORDERED: 0.9 % Sodium Chloride 1,000 ML IVC ONE ×2 (17:20→18:48)
[2018-12-13 17:39] LABS: ABG Base Excess 1 mEq/L (-2 to 3); ABG HCO3 26 mEq/L (21-27); ABG Oxygen Saturation 92 % (95-98); ABG PCO2 40 mmHg (35-45); ABG PH 7.41 pH Units (7.32-7.45); ABG PO2 63 mmHg (85-104); ABG TCO2 27 mEq/L (20-26)
--- NOTE | 2018-12-13 17:45 | Emergency Department Note ---
Disposition Clinical Impression: Hyperglycemia, Secondary diabetes with hyperglycemia hyperosmolar non-ketotic coma Altered mental status Qualifiers: Altered mental status type: unspecified Qualified Code(s): R41.82 - Altered mental status, unspecified Disposition: Admitted As Inpatient Condition: Fair Time of Disposition: 20:43 Altered Mental Status HPI - General Chief Complaint: ED Altered Mental Status Stated Complaint: hyperglycemic Time Seen by Provider: 12/13/18 17:19 Source: EMS Mode of arrival: EMS Limitations: altered mental status Nursing Notes Reviewed: Yes Vital Signs Reviewed: Yes - History of Present Illness HPI Narrative: Patient with a past medical history of uncontrolled diabetes, known seizure disorder, hypertension, chronic kidney disease, frequent falls presenting after being found down at home for unknown duration of time. EMS states that attempts at blood sugar monitoring read "high", patient presents to ER responsive to painful stimuli, she is spontaneously opening her eyes, best verbal response is unintelligible, Gil Coma Scale is estimated 9. MD complaint: altered mental status Onset (ago): unknown Consistency of Symptoms: constant Context: diabetes - Related Data Home Medications Medication Instructions Recorded Confirmed Acetaminophen [Tylenol] 650 mg PO Q6HR PRN 11/19/18 12/17/18 Apixaban [Eliquis] 2.5 mg PO BID 12/09/18 12/17/18 Atorvastatin [Lipitor] 40 mg PO HS 12/09/18 12/17/18 Escitalopram [Lexapro] 10 mg PO DAILY 12/09/18 12/17/18 Paricalcitol [Zemplar] 1 mcg PO DAILY 12/09/18 12/17/18 hydrALAZINE [HydrALAZINE] 75 mg PO TID 12/09/18 12/17/18 Insulin ASPART [Novolog Flexpen] 0 unit SQ TIDAC 12/13/18 12/17/18 Docusate Sodium [Stool Softener] 100 mg PO BID 12/17/18 12/17/18 Ferrous Fumarate [Ferretts] 325 mg PO BID 12/17/18 12/17/18 Furosemide [Lasix] 40 mg PO DAILY 12/17/18 12/17/18 Gabapentin [Neurontin] 300 mg PO BID 12/17/18 12/17/18 Insulin Glargine [Lantus] 25 unit SQ BID 12/17/18 12/17/18 LevETIRAcetam [Keppra] 500 mg PO BID 12/17/18 12/17/18 Losartan Potassium [Cozaar] 50 mg PO DAILY 12/17/18 12/17/18 Potassium Chloride [K-Tab ER] 10 meq PO DAILY 12/17/18 12/17/18 Umeclidinium [place] [Incruse 62.5 mcg IH DAILY 12/17/18 12/17/18 Ellipta] Verapamil HCl 360 mg PO DAILY 12/17/18 12/17/18 lamoTRIgine [Lamictal] 100 mg PO BID 12/17/18 12/17/18 Previous Rx's Medication Instructions Recorded Albuterol Sulfate [Albuterol 2 puff IH Q6H PRN #1 inhaler 11/21/18 Inhaler] Amlodipine Besylate 5 mg PO DAILY #30 tablet 11/21/18 Cholecalciferol (D-3) [Vitamin D] 1,000 unit PO DAILY #30 tablet 11/21/18 Allergies Allergy/AdvReac Type Severity Reaction Status Date / Time acetaminophen [From Percocet] Allergy Hallucinati Verified 12/11/18 11:38 ng adhesive Allergy Rash Verified 12/11/18 11:38 codeine Allergy Rash Verified 12/11/18 11:38 ibuprofen [From Advil] Allergy Rash Verified 12/11/18 11:38 NSAIDS (Non-Steroidal Allergy Rash Verified 12/11/18 11:38 Anti-Inflamma Glucagon AdvReac Confusion Verified 12/11/18 11:38 oxycodone [From Percocet] AdvReac Hallucinati Verified 12/11/18 11:38 ng Limitations: ROS unobtainable due to patients medical condition Past Medical History - Past Medical History Medical history: Reports: diabetes, renal disease, hyperlipidemia, hypertension, other, non-contributory, DVT Surgical history: Reports: orthopedic, other, other Psychiatric history: Reports: no psych history, anxiety, bipolar, depression [employer]OR COMPENSATION history: Reports: non-contributory - Social History Smoking Status: Unknown if ever smoked Smokeless Tobacco Status: No Alcohol use: Reports: none Drug use: Reports: none Physical Exam Constitutional: GCS is 9, patient with unintelligible sounds, opening eyes spon taneously with flexion to pain. Neuro: no overt focal neurological deficits, deep tendon reflexes intact bilaterally in the lower extremities Head: Atraumatic, normocephalic Eyes: Pupils are myotic, otherwise equal, round and reactive to light, no scleral icterus, no conjunctival injection Neck: Trachea midline without deviation. Anterior neck is supple without swelling. *Chest: Symmetric chest wall rise, multiple areas of bruising with petechiae over the sternum and left breast. *Heart: Cardiac rhythm and rate are regular with S1 and S2 , no S3 or S4 appreciated, no murmurs, gallops, rubs, or clicks. *Lungs: Lungs are clear to auscultation bilaterally, without accessory muscle use or prolonged expiratory phase. No wheezes, rhonchi or stridor appreciated. Abdomen: Areas of bruising noting over the anterior abdomen. Abdomen is otherwise rotund, soft to palpation, normal bowel sounds. No abdominal bruit auscultated. Non-distended, non-rigid, no organomegaly, no ascites appreciated. No pulsatile mass, no tenderness or guarding to palpation in all four quadrants, no rebound Extremities: Normal capillary refill without evidence of pedal edema, joint swelling or erythema. Integumentary: Multiple areas of bruising noted as mentioned above, skin is otherwise warm, dry, intact, normal color. No rash, cyanosis, diaphoresis, eryth corky, or pallor - General Limitations: altered mental status General appearance: obtunded Course Course Narrative: Altered mental status workup including CT scan of the head, neck, chest, abdomen and pelvis Lactic acid, blood cultures CBC, BMP, hepatic panel, lipase, ammonia EKG/old EKG - Reevaluation(s) Reevaluation #1: 2 mg Narcan administered intranasally in the ED with significant resolution of patient's mental status Patient quickly became alert and oriented to her surroundings although appears lethargic. Patient able to participate in simple yes or no review of systems questioning - states that she does not have any pain, specifically headache, chest pain, abdominal pain or trouble breathing at this time. Vital Signs Temperature 98.4 F 12/13/18 17:15 Pulse Rate 85 12/13/18 17:15 Respiratory Rate 20 12/13/18 17:15 Blood Pressure 167/79 12/13/18 17:15 O2 Sat by Pulse Oximetry 97 12/13/18 17:15 Temperature 98.0 F 12/14/18 07:48 Pulse Rate 72 12/14/18 07:48 Respiratory Rate 18 12/14/18 07:48 Blood Pressure 167/68 12/14/18 07:48 O2 Sat by Pulse Oximetry 97 12/14/18 07:48 Oxygen Delivery Oxygen Delivery Room Air Altered Mental Status - MDM Narrative Medical decision making narrative: EKG and imaging hours unremarkable for acute pathology. Laboratory shows a hyperosmolar hyperglycemia without significant anion gap There is also chronic kidney disease noted without acute kidney injurysince creatinine is at baseline Otherwise unremarkable workup. Patient has progressed with mentation to being alert and oriented and able to answer questions appropriately but appears lethargic Patient will be admitted to hospitalist medicine service for evaluation of syncope in the setting of hyperglycemia Patient verbalizes understanding and agreement with this plan. - Lab Data Lab results reviewed: Yes I reviewed the patient's lab results. Result diagrams: 12/15/18 06:22 12/16/18 06:28 Lab Results 12/13/18 12/13/18 12/13/18 Range/Units 17:15 17:15 17:21 WBC (4.3-11.1) K/mcL RBC (3.82-4.97) M/mcL Hgb (11.5-15.4) g/dL Hct (35.3-44.9) % MCV (83.0-100.0) fL MCH (28.0-33.3) pg MCHC (31.6-35.5) g/dL RDW (11.5-14.5) % Plt Count (140-400) K/mcL MPV (9.4-12.4) fL Immature Gran % (0-4) % Seg Neutrophils % % Lymphocytes % % Monocytes % % Eosinophils % % Basophils % % Neutrophils # (1.6-8.9) K/mcL Lymphocytes # (0.6-4.6) K/mcL Monocytes # (0.0-1.3) K/mcL Eosinophils # (0.0-0.6) K/mcL Basophils # (0.0-0.2) K/mcL PT (9.4-12.1) Seconds INR APTT (26.0-36.0) Seconds ABG pH (7.32-7.45) pH Units ABG pCO2 (35-45) mmHg ABG pO2 (85-104) mmHg ABG HCO3 (21-27) mEq/L ABG Total CO2 (20-26) mEq/L ABG O2 Saturation (95-98) % ABG Base Excess (-2 to 3) mEq/L Carboxyhemoglobin (0-5) % O2 Delivery Device Inspired O2 (1-15=lpm [id number]=%) Sodium 131 L (136-145) mEq/L Potassium 3.8 (3.5-5.1) mEq/L Chloride 92 L (98-107) mEq/L Carbon Dioxide 25 (23-29) mEq/L BUN 32 H (8-23) mg/dL Creatinine 2.28 H (0.60-1.20) mg/dL Est GFR ( Amer) 26 L (> 60) Est GFR (Non-Af Amer) 22 L (> 60) BUN/Creatinine Ratio 14 (6-26) Glucose 693 H* (70-105) mg/dL POC Glucose > 600 H* > 600 H* (70-99) mg/dL Est Mean Plasma Glucose mg/dl Hemoglobin A1c ( - 5.6) % Calculated Osmolality 312 H (280-300) Lactic Acid (0.5-2.2) mmol/L Calcium 9.2 (8.6-10.3) mg/dL Phosphorus (2.7-4.5) mg/dL Magnesium (1.6-2.6) mg/dL Total Bilirubin 0.4 (0.3-1.0) mg/dL Direct Bilirubin 0.1 (0.0-0.2) mg/dL Indirect Bilirubin 0.3 (0.0-1.2) mg/dL AST 10 L (13-39) Units/L ALT 7 (7-52) Units/L Alkaline Phosphatase 107 H (34-104) Units/L Ammonia (16-53) mcmol/L Creatine Kinase 46 (30-223) Units/L Troponin I 0.04 H* (< 0.04) ng/mL Serum Total Protein 6.4 (6.4-8.9) g/dL Albumin 3.7 (3.5-5.7) g/dL Globulin 2.7 (2.4-3.5) g/dL Albumin/Globulin Ratio 1.4 (1.1-2.2) Beta-Hydroxybutyric Acd (0.02-0.27) mmol/L TSH 1.041 (0.340-5.600) mcIU/mL Urine Color (Yellow) Urine Clarity (Clear) Urine pH (5.0-8.0) pH Units Ur Specific [place] (1.010-1.025) Urine Protein (Neg-Trace) mg/dL Urine Glucose (UA) (Normal) mg/dL Urine Ketones (Negative) mg/dL Urine Blood (Negative) Urine Nitrite (Negative) Urine Bilirubin (Negative) Urine Urobilinogen (Normal) mg/dL Ur Leukocyte Esterase (Negative) Ur Squamous Epith Cells (None-Few) per lpf Ur Culture Indicated? (NO) Salicylates < 2.5 L (15.0-30.0) mg/dL Urine Opiates Screen (Zqfttc=877) ng/mL Acetaminophen < 10 L (10-20) mcg/mL Ur Barbiturates Screen (Kszhbj=356) ng/mL Ur Phencyclidine Scrn (Cutoff=25) ng/mL Ur Amphetamines Screen (Nuoysm=2630) ng/mL U Benzodiazepines Scrn (Irjsex=584) ng/mL Urine Cocaine Screen (Cutoff= 300) ng/mL U Marijuana (THC) Screen (Cutoff = 50) ng/mL Ur Drug Screen Interp Ethyl Alcohol < 10 (Less than 10) mg/dL Blood Type Antibody Screen 12/13/18 12/13/18 12/13/18 Range/Units 17:36 17:50 17:50 WBC (4.3-11.1) K/mcL RBC (3.82-4.97) M/mcL Hgb (11.5-15.4) g/dL Hct (35.3-44.9) % MCV (83.0-100.0) fL MCH (28.0-33.3) pg MCHC (31.6-35.5) g/dL RDW (11.5-14.5) % Plt Count (140-400) K/mcL MPV (9.4-12.4) fL Immature Gran % (0-4) % Seg Neutrophils % % Lymphocytes % % Monocytes % % Eosinophils % % Basophils % % Neutrophils # (1.6-8.9) K/mcL Lymphocytes # (0.6-4.6) K/mcL Monocytes # (0.0-1.3) K/mcL Eosinophils # (0.0-0.6) K/mcL Basophils # (0.0-0.2) K/mcL PT (9.4-12.1) Seconds INR APTT (26.0-36.0) Seconds ABG pH 7.41 (7.32-7.45) pH Units ABG pCO2 40 (35-45) mmHg ABG pO2 63 L (85-104) mmHg ABG HCO3 26 (21-27) mEq/L ABG Total CO2 27 H (20-26) mEq/L ABG O2 Saturation 92 L (95-98) % ABG Base Excess 1 (-2 to 3) mEq/L Carboxyhemoglobin (0-5) % O2 Delivery Device Room Air Inspired O2 21.0 (1-15=lpm td71-142=%) Sodium (136-145) mEq/L Potassium (3.5-5.1) mEq/L Chloride (98-107) mEq/L Carbon Dioxide (23-29) mEq/L BUN (8-23) mg/dL Creatinine (0.60-1.20) mg/dL Est GFR ( Amer) (> 60) Est GFR (Non-Af Amer) (> 60) BUN/Creatinine Ratio (6-26) Glucose (70-105) mg/dL POC Glucose (70-99) mg/dL Est Mean Plasma Glucose mg/dl Hemoglobin A1c ( - 5.6) % Calculated Osmolality (280-300) Lactic Acid (0.5-2.2) mmol/L Calcium (8.6-10.3) mg/dL Phosphorus (2.7-4.5) mg/dL Magnesium (1.6-2.6) mg/dL Total Bilirubin (0.3-1.0) mg/dL Direct Bilirubin (0.0-0.2) mg/dL Indirect Bilirubin (0.0-1.2) mg/dL AST (13-39) Units/L ALT (7-52) Units/L Alkaline Phosphatase (34-104) Units/L Ammonia 23 (16-53) mcmol/L Creatine Kinase (30-223) Units/L Troponin I (< 0.04) ng/mL Serum Total Protein (6.4-8.9) g/dL Albumin (3.5-5.7) g/dL Globulin (2.4-3.5) g/dL Albumin/Globulin Ratio (1.1-2.2) Beta-Hydroxybutyric Acd (0.02-0.27) mmol/L TSH (0.340-5.600) mcIU/mL Urine Color (Yellow) Urine Clarity (Clear) Urine pH (5.0-8.0) pH Units Ur Specific [place] (1.010-1.025) Urine Protein (Neg-Trace) mg/dL Urine Glucose (UA) (Normal) mg/dL Urine Ketones (Negative) mg/dL Urine Blood (Negative) Urine Nitrite (Negative) Urine Bilirubin (Negative) Urine Urobilinogen (Normal) mg/dL Ur Leukocyte Esterase (Negative) Ur Squamous Epith Cells (None-Few) per lpf Ur Culture Indicated? (NO) Salicylates (15.0-30.0) mg/dL Urine Opiates Screen (Bgvumj=034) ng/mL Acetaminophen (10-20) mcg/mL Ur Barbiturates Screen (Auxlxi=064) ng/mL Ur Phencyclidine Scrn (Cutoff=25) ng/mL Ur Amphetamines Screen (Ilmhlo=9024) ng/mL U Benzodiazepines Scrn (Kftbns=472) ng/mL Urine Cocaine Screen (Cutoff= 300) ng/mL U Marijuana (THC) Screen (Cutoff = 50) ng/mL Ur Drug Screen Interp Ethyl Alcohol (Less than 10) mg/dL Blood Type O POSITIVE Antibody Screen NEGATIVE 12/13/18 12/13/18 12/13/18 Range/Units 17:50 17:50 17:50 WBC 10.6 (4.3-11.1) K/mcL RBC 3.65 L (3.82-4.97) M/mcL Hgb 9.6 L (11.5-15.4) g/dL Hct 30.3 L (35.3-44.9) % MCV 83.0 (83.0-100.0) fL MCH 26.3 L (28.0-33.3) pg MCHC 31.7 (31.6-35.5) g/dL RDW 14.0 (11.5-14.5) % Plt Count 270 (140-400) K/mcL MPV 11.4 (9.4-12.4) fL Immature Gran % 0.3 (0-4) % Seg Neutrophils % 78.7 % Lymphocytes % 12.5 % Monocytes % 7.9 % Eosinophils % 0.3 % Basophils % 0.3 % Neutrophils # 8.3 (1.6-8.9) K/mcL Lymphocytes # 1.3 (0.6-4.6) K/mcL Monocytes # 0.8 (0.0-1.3) K/mcL Eosinophils # 0.0 (0.0-0.6) K/mcL Basophils # 0.0 (0.0-0.2) K/mcL PT 11.6 (9.4-12.1) Seconds INR 1.0 APTT 27.5 (26.0-36.0) Seconds ABG pH (7.32-7.45) pH Units ABG pCO2 (35-45) mmHg ABG pO2 (85-104) mmHg ABG HCO3 (21-27) mEq/L ABG Total CO2 (20-26) mEq/L ABG O2 Saturation (95-98) % ABG Base Excess (-2 to 3) mEq/L Carboxyhemoglobin (0-5) % O2 Delivery Device Inspired O2 (1-15=lpm jo88-252=%) Sodium (136-145) mEq/L Potassium (3.5-5.1) mEq/L Chloride (98-107) mEq/L Carbon Dioxide (23-29) mEq/L BUN (8-23) mg/dL Creatinine (0.60-1.20) mg/dL Est GFR ( Amer) (> 60) Est GFR (Non-Af Amer) (> 60) BUN/Creatinine Ratio (6-26) Glucose (70-105) mg/dL POC Glucose (70-99) mg/dL Est Mean Plasma Glucose mg/dl Hemoglobin A1c ( - 5.6) % Calculated Osmolality (280-300) Lactic Acid 1.9 (0.5-2.2) mmol/L Calcium (8.6-10.3) mg/dL Phosphorus (2.7-4.5) mg/dL Magnesium (1.6-2.6) mg/dL Total Bilirubin (0.3-1.0) mg/dL Direct Bilirubin (0.0-0.2) mg/dL Indirect Bilirubin (0.0-1.2) mg/dL AST (13-39) Units/L ALT (7-52) Units/L Alkaline Phosphatase (34-104) Units/L Ammonia (16-53) mcmol/L Creatine Kinase (30-223) Units/L Troponin I (< 0.04) ng/mL Serum Total Protein (6.4-8.9) g/dL Albumin (3.5-5.7) g/dL Globulin (2.4-3.5) g/dL Albumin/Globulin Ratio (1.1-2.2) Beta-Hydroxybutyric Acd (0.02-0.27) mmol/L TSH (0.340-5.600) mcIU/mL Urine Color (Yellow) Urine Clarity (Clear) Urine pH (5.0-8.0) pH Units Ur Specific [place] (1.010-1.025) Urine Protein (Neg-Trace) mg/dL Urine Glucose (UA) (Normal) mg/dL Urine Ketones (Negative) mg/dL Urine Blood (Negative) Urine Nitrite (Negative) Urine Bilirubin (Negative) Urine Urobilinogen (Normal) mg/dL Ur Leukocyte Esterase (Negative) Ur Squamous Epith Cells (None-Few) per lpf Ur Culture Indicated? (NO) Salicylates (15.0-30.0) mg/dL Urine Opiates Screen (Kojfuz=691) ng/mL Acetaminophen (10-20) mcg/mL Ur Barbiturates Screen (Xsrzvp=130) ng/mL Ur Phencyclidine Scrn (Cutoff=25) ng/mL Ur Amphetamines Screen (Vmaole=5247) ng/mL U Benzodiazepines Scrn (Xdbnmn=906) ng/mL Urine Cocaine Screen (Cutoff= 300) ng/mL U Marijuana (THC) Screen (Cutoff = 50) ng/mL Ur Drug Screen Interp Ethyl Alcohol (Less than 10) mg/dL Blood Type Antibody Screen 12/13/18 12/13/18 12/13/18 Range/Units 18:00 18:00 18:11 WBC (4.3-11.1) K/mcL RBC (3.82-4.97) M/mcL Hgb (11.5-15.4) g/dL Hct (35.3-44.9) % MCV (83.0-100.0) fL MCH (28.0-33.3) pg MCHC (31.6-35.5) g/dL RDW (11.5-14.5) % Plt Count (140-400) K/mcL MPV (9.4-12.4) fL Immature Gran % (0-4) % Seg Neutrophils % % Lymphocytes % % Monocytes % % Eosinophils % % Basophils % % Neutrophils # (1.6-8.9) K/mcL Lymphocytes # (0.6-4.6) K/mcL Monocytes # (0.0-1.3) K/mcL Eosinophils # (0.0-0.6) K/mcL Basophils # (0.0-0.2) K/mcL PT (9.4-12.1) Seconds INR APTT (26.0-36.0) Seconds ABG pH (7.32-7.45) pH Units ABG pCO2 (35-45) mmHg ABG pO2 (85-104) mmHg ABG HCO3 (21-27) mEq/L ABG Total CO2 (20-26) mEq/L ABG O2 Saturation (95-98) % ABG Base Excess (-2 to 3) mEq/L Carboxyhemoglobin 4.5 (0-5) % O2 Delivery Device Inspired O2 (1-15=lpm [id number]=%) Sodium (136-145) mEq/L Potassium (3.5-5.1) mEq/L Chloride (98-107) mEq/L Carbon Dioxide (23-29) mEq/L BUN (8-23) mg/dL Creatinine (0.60-1.20) mg/dL Est GFR ( Amer) (> 60) Est GFR (Non-Af Amer) (> 60) BUN/Creatinine Ratio (6-26) Glucose (70-105) mg/dL POC Glucose (70-99) mg/dL Est Mean Plasma Glucose mg/dl Hemoglobin A1c ( - 5.6) % Calculated Osmolality (280-300) Lactic Acid (0.5-2.2) mmol/L Calcium (8.6-10.3) mg/dL Phosphorus (2.7-4.5) mg/dL Magnesium (1.6-2.6) mg/dL Total Bilirubin (0.3-1.0) mg/dL Direct Bilirubin (0.0-0.2) mg/dL Indirect Bilirubin (0.0-1.2) mg/dL AST (13-39) Units/L ALT (7-52) Units/L Alkaline Phosphatase (34-104) Units/L Ammonia (16-53) mcmol/L Creatine Kinase (30-223) Units/L Troponin I (< 0.04) ng/mL Serum Total Protein (6.4-8.9) g/dL Albumin (3.5-5.7) g/dL Globulin (2.4-3.5) g/dL Albumin/Globulin Ratio (1.1-2.2) Beta-Hydroxybutyric Acd (0.02-0.27) mmol/L TSH (0.340-5.600) mcIU/mL Urine Color Yellow (Yellow) Urine Clarity Clear (Clear) Urine pH 5.0 (5.0-8.0) pH Units Ur Specific [place] > 1.030 H (1.010-1.025) Urine Protein 100 H (Neg-Trace) mg/dL Urine Glucose (UA) >=1000 H (Normal) mg/dL Urine Ketones Trace H (Negative) mg/dL Urine Blood Negative (Negative) Urine Nitrite Negative (Negative) Urine Bilirubin Negative (Negative) Urine Urobilinogen Normal (Normal) mg/dL Ur Leukocyte Esterase Negative (Negative) Ur Squamous Epith Cells Few (None-Few) per lpf Ur Culture Indicated? NO (NO) Salicylates (15.0-30.0) mg/dL Urine Opiates Screen Negative (Vkbrhw=212) ng/mL Acetaminophen (10-20) mcg/mL Ur Barbiturates Screen Negative (Blkyrn=987) ng/mL Ur Phencyclidine Scrn Negative (Cutoff=25) ng/mL Ur Amphetamines Screen Negative (Mhsbsv=4404) ng/mL U Benzodiazepines Scrn Negative (Gsxinf=808) ng/mL Urine Cocaine Screen Negative (Cutoff= 300) ng/mL U Marijuana (THC) Screen Negative (Cutoff = 50) ng/mL Ur Drug Screen Interp See Below Ethyl Alcohol (Less than 10) mg/dL Blood Type Antibody Screen 12/13/18 12/13/18 12/13/18 Range/Units 21:53 21:53 21:53 WBC (4.3-11.1) K/mcL RBC (3.82-4.97) M/mcL Hgb (11.5-15.4) g/dL Hct (35.3-44.9) % MCV (83.0-100.0) fL MCH (28.0-33.3) pg MCHC (31.6-35.5) g/dL RDW (11.5-14.5) % Plt Count (140-400) K/mcL MPV (9.4-12.4) fL Immature Gran % (0-4) % Seg Neutrophils % % Lymphocytes % % Monocytes % % Eosinophils % % Basophils % % Neutrophils # (1.6-8.9) K/mcL Lymphocytes # (0.6-4.6) K/mcL Monocytes # (0.0-1.3) K/mcL Eosinophils # (0.0-0.6) K/mcL Basophils # (0.0-0.2) K/mcL PT (9.4-12.1) Seconds INR APTT (26.0-36.0) Seconds ABG pH (7.32-7.45) pH Units ABG pCO2 (35-45) mmHg ABG pO2 (85-104) mmHg ABG HCO3 (21-27) mEq/L ABG Total CO2 (20-26) mEq/L ABG O2 Saturation (95-98) % ABG Base Excess (-2 to 3) mEq/L Carboxyhemoglobin (0-5) % O2 Delivery Device Inspired O2 (1-15=lpm af34-550=%) Sodium 134 L (136-145) mEq/L Potassium 3.6 (3.5-5.1) mEq/L Chloride 101 (98-107) mEq/L Carbon Dioxide 20 L (23-29) mEq/L BUN 29 H (8-23) mg/dL Creatinine 2.04 H (0.60-1.20) mg/dL Est GFR ( Amer) 30 L (> 60) Est GFR (Non-Af Amer) 25 L (> 60) BUN/Creatinine Ratio 14 (6-26) Glucose 566 H* (70-105) mg/dL POC Glucose (70-99) mg/dL Est Mean Plasma Glucose 263 mg/dl Hemoglobin A1c 10.8 H ( - 5.6) % Calculated Osmolality 310 H (280-300) Lactic Acid (0.5-2.2) mmol/L Calcium 8.3 L (8.6-10.3) mg/dL Phosphorus (2.7-4.5) mg/dL Magnesium (1.6-2.6) mg/dL Total Bilirubin (0.3-1.0) mg/dL Direct Bilirubin (0.0-0.2) mg/dL Indirect Bilirubin (0.0-1.2) mg/dL AST (13-39) Units/L ALT (7-52) Units/L Alkaline Phosphatase (34-104) Units/L Ammonia (16-53) mcmol/L Creatine Kinase (30-223) Units/L Troponin I 0.05 H* (< 0.04) ng/mL Serum Total Protein (6.4-8.9) g/dL Albumin (3.5-5.7) g/dL Globulin (2.4-3.5) g/dL Albumin/Globulin Ratio (1.1-2.2) Beta-Hydroxybutyric Acd 1.97 H (0.02-0.27) mmol/L TSH (0.340-5.600) mcIU/mL Urine Color (Yellow) Urine Clarity (Clear) Urine pH (5.0-8.0) pH Units Ur Specific [place] (1.010-1.025) Urine Protein (Neg-Trace) mg/dL Urine Glucose (UA) (Normal) mg/dL Urine Ketones (Negative) mg/dL Urine Blood (Negative) Urine Nitrite (Negative) Urine Bilirubin (Negative) Urine Urobilinogen (Normal) mg/dL Ur Leukocyte Esterase (Negative) Ur Squamous Epith Cells (None-Few) per lpf Ur Culture Indicated? (NO) Salicylates (15.0-30.0) mg/dL Urine Opiates Screen (Iqchmd=366) ng/mL Acetaminophen (10-20) mcg/mL Ur Barbiturates Screen (Qwjbiz=675) ng/mL Ur Phencyclidine Scrn (Cutoff=25) ng/mL Ur Amphetamines Screen (Bdjbnr=7328) ng/mL U Benzodiazepines Scrn (Fcrbik=221) ng/mL Urine Cocaine Screen (Cutoff= 300) ng/mL U Marijuana (THC) Screen (Cutoff = 50) ng/mL Ur Drug Screen Interp Ethyl Alcohol (Less than 10) mg/dL Blood Type Antibody Screen 12/13/18 12/14/18 12/14/18 Range/Units 21:53 02:16 03:29 WBC (4.3-11.1) K/mcL RBC (3.82-4.97) M/mcL Hgb (11.5-15.4) g/dL Hct (35.3-44.9) % MCV (83.0-100.0) fL MCH (28.0-33.3) pg MCHC (31.6-35.5) g/dL RDW (11.5-14.5) % Plt Count (140-400) K/mcL MPV (9.4-12.4) fL Immature Gran % (0-4) % Seg Neutrophils % % Lymphocytes % % Monocytes % % Eosinophils % % Basophils % % Neutrophils # (1.6-8.9) K/mcL Lymphocytes # (0.6-4.6) K/mcL Monocytes # (0.0-1.3) K/mcL Eosinophils # (0.0-0.6) K/mcL Basophils # (0.0-0.2) K/mcL PT (9.4-12.1) Seconds INR APTT (26.0-36.0) Seconds ABG pH (7.32-7.45) pH Units ABG pCO2 (35-45) mmHg ABG pO2 (85-104) mmHg ABG HCO3 (21-27) mEq/L ABG Total CO2 (20-26) mEq/L ABG O2 Saturation (95-98) % ABG Base Excess (-2 to 3) mEq/L Carboxyhemoglobin (0-5) % O2 Delivery Device Inspired O2 (1-15=lpm [id number]=%) Sodium (136-145) mEq/L Potassium (3.5-5.1) mEq/L Chloride (98-107) mEq/L Carbon Dioxide (23-29) mEq/L BUN (8-23) mg/dL Creatinine (0.60-1.20) mg/dL Est GFR ( Amer) (> 60) Est GFR (Non-Af Amer) (> 60) BUN/Creatinine Ratio (6-26) Glucose (70-105) mg/dL POC Glucose 264 H (70-99) mg/dL Est Mean Plasma Glucose mg/dl Hemoglobin A1c ( - 5.6) % Calculated Osmolality (280-300) Lactic Acid (0.5-2.2) mmol/L Calcium (8.6-10.3) mg/dL Phosphorus 3.7 (2.7-4.5) mg/dL Magnesium 1.9 (1.6-2.6) mg/dL Total Bilirubin (0.3-1.0) mg/dL Direct Bilirubin (0.0-0.2) mg/dL Indirect Bilirubin (0.0-1.2) mg/dL AST (13-39) Units/L ALT (7-52) Units/L Alkaline Phosphatase (34-104) Units/L Ammonia (16-53) mcmol/L Creatine Kinase (30-223) Units/L Troponin I 0.05 H* (< 0.04) ng/mL Serum Total Protein (6.4-8.9) g/dL Albumin (3.5-5.7) g/dL Globulin (2.4-3.5) g/dL Albumin/Globulin Ratio (1.1-2.2) Beta-Hydroxybutyric Acd (0.02-0.27) mmol/L TSH (0.340-5.600) mcIU/mL Urine Color (Yellow) Urine Clarity (Clear) Urine pH (5.0-8.0) pH Units Ur Specific [place] (1.010-1.025) Urine Protein (Neg-Trace) mg/dL Urine Glucose (UA) (Normal) mg/dL Urine Ketones (Negative) mg/dL Urine Blood (Negative) Urine Nitrite (Negative) Urine Bilirubin (Negative) Urine Urobilinogen (Normal) mg/dL Ur Leukocyte Esterase (Negative) Ur Squamous Epith Cells (None-Few) per lpf Ur Culture Indicated? (NO) Salicylates (15.0-30.0) mg/dL Urine Opiates Screen (Hkmrwc=592) ng/mL Acetaminophen (10-20) mcg/mL Ur Barbiturates Screen (Gnvedr=348) ng/mL Ur Phencyclidine Scrn (Cutoff=25) ng/mL Ur Amphetamines Screen (Teedes=6462) ng/mL U Benzodiazepines Scrn (Ppjfgd=847) ng/mL Urine Cocaine Screen (Cutoff= 300) ng/mL U Marijuana (THC) Screen (Cutoff = 50) ng/mL Ur Drug Screen Interp Ethyl Alcohol (Less than 10) mg/dL Blood Type Antibody Screen 12/14/18 12/14/18 Range/Units 03:29 03:29 WBC 10.0 (4.3-11.1) K/mcL RBC 3.35 L (3.82-4.97) M/mcL Hgb 8.9 L (11.5-15.4) g/dL Hct 27.9 L (35.3-44.9) % MCV 83.3 (83.0-100.0) fL MCH 26.6 L (28.0-33.3) pg MCHC 31.9 (31.6-35.5) g/dL RDW 13.8 (11.5-14.5) % Plt Count 246 (140-400) K/mcL MPV 11.1 (9.4-12.4) fL Immature Gran % 0.3 (0-4) % Seg Neutrophils % 76.9 % Lymphocytes % 11.2 % Monocytes % 9.6 % Eosinophils % 1.6 % Basophils % 0.4 % Neutrophils # 7.7 (1.6-8.9) K/mcL Lymphocytes # 1.1 (0.6-4.6) K/mcL Monocytes # 1.0 (0.0-1.3) K/mcL Eosinophils # 0.2 (0.0-0.6) K/mcL Basophils # 0.0 (0.0-0.2) K/mcL PT (9.4-12.1) Seconds INR APTT (26.0-36.0) Seconds ABG pH (7.32-7.45) pH Units ABG pCO2 (35-45) mmHg ABG pO2 (85-104) mmHg ABG HCO3 (21-27) mEq/L ABG Total CO2 (20-26) mEq/L ABG O2 Saturation (95-98) % ABG Base Excess (-2 to 3) mEq/L Carboxyhemoglobin (0-5) % O2 Delivery Device Inspired O2 (1-15=lpm [id number]=%) Sodium 139 (136-145) mEq/L Potassium 3.0 L (3.5-5.1) mEq/L Chloride 104 (98-107) mEq/L Carbon Dioxide 25 (23-29) mEq/L BUN 26 H (8-23) mg/dL Creatinine 1.98 H (0.60-1.20) mg/dL Est GFR ( Amer) 31 L (> 60) Est GFR (Non-Af Amer) 25 L (> 60) BUN/Creatinine Ratio 13 (6-26) Glucose 268 H (70-105) mg/dL POC Glucose (70-99) mg/dL Est Mean Plasma Glucose mg/dl Hemoglobin A1c ( - 5.6) % Calculated Osmolality 302 H (280-300) Lactic Acid (0.5-2.2) mmol/L Calcium 8.5 L (8.6-10.3) mg/dL Phosphorus (2.7-4.5) mg/dL Magnesium (1.6-2.6) mg/dL Total Bilirubin (0.3-1.0) mg/dL Direct Bilirubin (0.0-0.2) mg/dL Indirect Bilirubin (0.0-1.2) mg/dL AST (13-39) Units/L ALT (7-52) Units/L Alkaline Phosphatase (34-104) Units/L Ammonia (16-53) mcmol/L Creatine Kinase (30-223) Units/L Troponin I (< 0.04) ng/mL Serum Total Protein (6.4-8.9) g/dL Albumin (3.5-5.7) g/dL Globulin (2.4-3.5) g/dL Albumin/Globulin Ratio (1.1-2.2) Beta-Hydroxybutyric Acd (0.02-0.27) mmol/L TSH (0.340-5.600) mcIU/mL Urine Color (Yellow) Urine Clarity (Clear) Urine pH (5.0-8.0) pH Units Ur Specific [place] (1.010-1.025) Urine Protein (Neg-Trace) mg/dL Urine Glucose (UA) (Normal) mg/dL Urine Ketones (Negative) mg/dL Urine Blood (Negative) Urine Nitrite (Negative) Urine Bilirubin (Negative) Urine Urobilinogen (Normal) mg/dL Ur Leukocyte Esterase (Negative) Ur Squamous Epith Cells (None-Few) per lpf Ur Culture Indicated? (NO) Salicylates (15.0-30.0) mg/dL Urine Opiates Screen (Vagkoo=086) ng/mL Acetaminophen (10-20) mcg/mL Ur Barbiturates Screen (Mgpkqk=966) ng/mL Ur Phencyclidine Scrn (Cutoff=25) ng/mL Ur Amphetamines Screen (Lmgfkc=8761) ng/mL U Benzodiazepines Scrn (Lydnnt=729) ng/mL Urine Cocaine Screen (Cutoff= 300) ng/mL U Marijuana (THC) Screen (Cutoff = 50) ng/mL Ur Drug Screen Interp Ethyl Alcohol (Less than 10) mg/dL Blood Type Antibody Screen - Radiology Data Radiology results reviewed: Yes I reviewed the patient's radiology results. Abdomen/Pelvis CT 12/13/18 17:20 IMPRESSION: Within the chest there is nodular injection of the subcutaneous fat in the anterior chest wall. This could be from prior trauma. Correlate with clinical exam. No pneumonia, pulmonary edema, or pneumothorax. There is coronary artery disease No acute abnormality seen in the abdomen or pelvis D/ / Sergio Enamorado MD / Sergio Enamorado MD Interpreting Provider: Sergio Enamorado MD Chest CT 12/13/18 17:20 IMPRESSION: Within the chest there is nodular injection of the subcutaneous fat in the anterior chest wall. This could be from prior trauma. Correlate with clinical exam. No pneumonia, pulmonary edema, or pneumothorax. There is coronary artery disease No acute abnormality seen in the abdomen or pelvis D/ / Sergio Enamorado MD / Sergio Enamorado MD Interpreting Provider: Sergio Enamorado MD Head CT 12/13/18 17:20 IMPRESSION: Mild chronic small ischemic disease and age related involutional change without acute intracranial bleed, midline shift or mass effect. No acute fracture or traumatic malalignment of the cervical spine. D/ / Héctor Baum / Héctor Baum Interpreting Provider: Héctor Baum Chest X-Ray 12/13/18 17:21 IMPRESSION: No acute process. D/ / Franky Silveira MD / Franky Silveira MD Interpreting Provider: Franky Silveira MD Cervical Spine CT 12/13/18 17:48 IMPRESSION: Mild chronic small ischemic disease and age related involutional change without acute intracranial bleed, midline shift or mass effect. No acute fracture or traumatic malalignment of the cervical spine. D/ / Héctor Baum / Héctor Baum Interpreting Provider: Héctor Baum - EKG Data EKG attestation: Yes I reviewed and interpreted this EKG. EKG results narrative: Patient EKG shows sinus rhythm with a rate of 74 bpm, TX interval of 193 ms, QRS duration of 94 ms, QT/QTc interval 439/48 ms respectively. There are no s ignificant ST segment elevations, depressions, pathologic use, abnormal T-wave inversions, or any other signs of acute ischemic change. At this time there is no prior EKG available for comparison. TPA Checklist - LKW: 3-4.5 hrs Add. Warnings/Precautions Patient/family understanding: The patient/family members have been counseled and understood the risk, benefit, and alternatives of treatment. Attestation Statement - Attestation Attestation: I have seen this patient with the resident physician, I have personally evaluated this patient. I had reviewed the chart and document dictation by the resident physician and aM in agreement with the information documented by the resident physician. Please see documentation by the resident physician for complete chart including past medical history, family medical history, review of systems, current history and physical and laboratory and imaging studies. I was present for all procedures, provided direct supervision for all procedures, was present for the entirety of all procedures and provided direct guidance during the procedures. Please see documentation by the resident physician for any procedures performed. I have reviewed all interpretations of EKGs, and reviewed all EKGs performed on patient's as well. I have also reviewed reports of imaging as provided by radiology.
[2018-12-13 18:09] LABS: Basophils % 0.3 %; Eosinophils % 0.3 %; Hematocrit 30.3 % (35.3-44.9); Hemoglobin 9.6 g/dL (11.5-15.4); Immature Granulocytes % 0.3 % (0-4); Lymphocytes # 1.3 K/mcL (0.6-4.6); Lymphocytes % 12.5 %; Mean Corpuscular HGB Conc 31.7 g/dL (31.6-35.5); Mean Corpuscular Hemoglobin 26.3 pg (28.0-33.3); Mean Platelet Volume 11.4 fL (9.4-12.4); Monocytes # 0.8 K/mcL (0.0-1.3); Monocytes % 7.9 %; Neutrophils # 8.3 K/mcL (1.6-8.9); Platelet Count 270 K/mcL (140-400); Red Blood Count 3.65 M/mcL (3.82-4.97); Segmented Neutrophils % 78.7 %
[2018-12-13 18:13] LABS: Bilirubin,Urine Negative (Negative); Blood,Urine Negative (Negative); Clarity,Urine Clear (Clear); Color,Urine Yellow (Yellow); Glucose,Urine (UA) >=1000 mg/dL (Normal); Ketones,Urine Trace mg/dL (Negative); Leukocyte Esterase,Urine Negative (Negative); Nitrite,Urine Negative (Negative); Protein,Urine 100 mg/dL (Neg-Trace); Specific Gravity,Urine > 1.030 (1.010-1.025); Urobilinogen,Urine Normal (Normal)
[2018-12-13 18:16] LABS: Prothrombin Time 11.6 Seconds (9.4-12.1)
[2018-12-13 18:18] LABS: Squamous Epithelial Cell,Urine Few per lpf (None-Few)
[2018-12-13 18:18] LABS: Activated Partial Thrombo Time 27.5 Seconds (26.0-36.0)
[2018-12-13 18:20] LABS: Amphetamine Screen,Urine Negative ng/mL (Cutoff=1000); Barbiturate Screen,Urine Negative ng/mL (Cutoff=200); Benzodiazepines Screen,Urine Negative ng/mL (Cutoff=200); Cannabinoid Screen,Urine Negative ng/mL (Cutoff = 50); Cocaine Screen,Urine Negative ng/mL (Cutoff= 300); Opiate Screen,Urine Negative ng/mL (Cutoff=300); Phencyclidine Screen,Urine Negative ng/mL (Cutoff=25)
[2018-12-13 18:49] LABS: Alanine Aminotransferase 7 Units/L (7-52); Albumin 3.7 g/dL (3.5-5.7); Albumin/Globulin Ratio 1.4 (1.1-2.2); Alkaline Phosphatase 107 Units/L (34-104); Aspartate Amino Transferase 10 Units/L (13-39); BUN/Creatinine Ratio 14 (6-26); Bilirubin,Direct 0.1 mg/dL (0.0-0.2); Bilirubin,Indirect 0.3 mg/dL (0.0-1.2); Bilirubin,Total 0.4 mg/dL (0.3-1.0); Blood Urea Nitrogen 32 mg/dL (8-23); Calcium 9.2 mg/dL (8.6-10.3); Carbon Dioxide 25 mEq/L (23-29); Chloride 92 mEq/L (98-107); Creatine Kinase 46 Units/L (30-223); Ethanol < 10 mg/dL (Less than 10); Globulin 2.7 g/dL (2.4-3.5); Glucose 693 mg/dL (70-105); Osmolality,Calculated 312 (280-300); Potassium 3.8 mEq/L (3.5-5.1); Sodium 131 mEq/L (136-145); Thyroid Stimulating Hormone 1.041 mcIU/mL (0.340-5.600); Total Protein 6.4 g/dL (6.4-8.9); Troponin I 0.04 ng/mL (< 0.04); eGFR For Non-African Americans 22 (> 60)
[2018-12-13 19:03] LABS: Acetaminophen < 10 mcg/mL (10-20); Salicylate < 2.5 mg/dL (15.0-30.0)
--- NOTE | 2018-12-13 20:35 | Emergency Department Note ---
Disposition Clinical Impression: Altered mental status, Hyperglycemia, Secondary diabetes with hyperglycemia hyperosmolar non-ketotic coma Disposition: Admitted As Inpatient Condition: Serious Forms: ED Satisfaction Letter Time of Disposition: 20:36 General Adult HPI - General Chief complaint: ED Altered Mental Status Stated complaint: hyperglycemic Time Seen by Provider: 12/13/18 17:19 Source: EMS Mode of arrival: EMS Limitations: altered mental status Nursing Notes Reviewed: Yes Vital Signs Reviewed: Yes - History of Present Illness Pain Scale: 0 - Related Data Home Medications Medication Instructions Recorded Confirmed Acetaminophen [Tylenol] 650 mg PO Q6HR PRN 11/19/18 12/13/18 Epoetin Abdifatah [Procrit] 10,000 unit IM Q14D 11/19/18 11/19/18 Apixaban [Eliquis] 2.5 mg PO BID 12/09/18 12/13/18 Atorvastatin [Lipitor] 40 mg PO HS 12/09/18 12/13/18 Escitalopram [Lexapro] 10 mg PO DAILY 12/09/18 12/13/18 Ferrous Sulfate [Iron] 325 mg PO BIDWM 12/09/18 12/13/18 Furosemide [Lasix] 20 mg PO DAILY 12/09/18 12/13/18 Isosorbide DInitrate [Isordil] 10 mg PO TID 12/09/18 12/13/18 Paricalcitol [Zemplar] 1 mcg PO DAILY 12/09/18 12/13/18 hydrALAZINE [HydrALAZINE] 75 mg PO TID 12/09/18 12/13/18 lamoTRIgine [Lamotrigine] 200 mg PO BID 12/09/18 12/13/18 levETIRAcetam [Roweepra] 750 mg PO BID 12/09/18 12/13/18 Glucagon,Human Recombinant 1 mg IM ONCE PRN 12/13/18 12/13/18 [Glucagon Emergency Kit] Insulin ASPART [Novolog Flexpen] 0 unit SQ TIDAC 12/13/18 12/13/18 Previous Rx's Medication Instructions Recorded Albuterol Sulfate [Albuterol 2 puff IH Q6H PRN #1 inhaler 11/21/18 Inhaler] Amlodipine Besylate 5 mg PO DAILY #30 tablet 11/21/18 Benzonatate [Tessalon] 200 mg PO TID PRN #60 capsule 11/21/18 Cholecalciferol (D-3) [Vitamin D] 1,000 unit PO DAILY #30 tablet 11/21/18 Gabapentin [Neurontin] 100 mg PO BID #60 capsule 11/21/18 Insulin NPH, HUMAN [HumuLIN N] 25 units SQ BID 30 Days vial 11/21/18 Nystatin POWDER [Nystop] 1 appl TP TID PRN #1 bottle 11/21/18 Allergies Allergy/AdvReac Type Severity Reaction Status Date / Time acetaminophen [From Percocet] Allergy Hallucinati Verified 12/11/18 11:38 ng adhesive Allergy Rash Verified 12/11/18 11:38 codeine Allergy Rash Verified 12/11/18 11:38 ibuprofen [From Advil] Allergy Rash Verified 12/11/18 11:38 NSAIDS (Non-Steroidal Allergy Rash Verified 12/11/18 11:38 Anti-Inflamma Glucagon AdvReac Confusion Verified 12/11/18 11:38 oxycodone [From Percocet] AdvReac Hallucinati Verified 12/11/18 11:38 ng Past Medical History - Past Medical History Medical history: Reports: diabetes, renal disease, hyperlipidemia, hypertension, other, non-contributory, DVT Surgical history: Reports: orthopedic, other, other Psychiatric history: Reports: no psych history, anxiety, bipolar, depression [employer] history: Reports: non-contributory - Social History Smoking Status: Unknown if ever smoked Smokeless Tobacco Status: No Alcohol use: Reports: none Drug use: Reports: none Physical Exam - General Limitations: altered mental status General appearance: obtunded Course Vital Signs Temperature 98.4 F 12/13/18 17:15 Pulse Rate 85 12/13/18 17:15 Respiratory Rate 20 12/13/18 17:15 Blood Pressure 167/79 12/13/18 17:15 O2 Sat by Pulse Oximetry 97 12/13/18 17:15 Temperature 97.4 F L 12/13/18 17:21 Pulse Rate 81 12/13/18 20:25 Respiratory Rate 16 12/13/18 20:25 Blood Pressure 152/86 12/13/18 20:25 O2 Sat by Pulse Oximetry 96 12/13/18 20:25 Oxygen Delivery Oxygen Delivery Room Air Medical Decision Making - Lab Data Result diagrams: 12/13/18 17:50 12/13/18 17:21 Lab Results 12/13/18 12/13/18 12/13/18 Range/Units 17:21 17:36 17:50 WBC (4.3-11.1) K/mcL RBC (3.82-4.97) M/mcL Hgb (11.5-15.4) g/dL Hct (35.3-44.9) % MCV (83.0-100.0) fL MCH (28.0-33.3) pg MCHC (31.6-35.5) g/dL RDW (11.5-14.5) % Plt Count (140-400) K/mcL MPV (9.4-12.4) fL Immature Gran % (0-4) % Seg Neutrophils % % Lymphocytes % % Monocytes % % Eosinophils % % Basophils % % Neutrophils # (1.6-8.9) K/mcL Lymphocytes # (0.6-4.6) K/mcL Monocytes # (0.0-1.3) K/mcL Eosinophils # (0.0-0.6) K/mcL Basophils # (0.0-0.2) K/mcL PT (9.4-12.1) Seconds INR APTT (26.0-36.0) Seconds ABG pH 7.41 (7.32-7.45) pH Units ABG pCO2 40 (35-45) mmHg ABG pO2 63 L (85-104) mmHg ABG HCO3 26 (21-27) mEq/L ABG Total CO2 27 H (20-26) mEq/L ABG O2 Saturation 92 L (95-98) % ABG Base Excess 1 (-2 to 3) mEq/L Carboxyhemoglobin (0-5) % O2 Delivery Device Room Air Inspired O2 21.0 (1-15=lpm [id number]=%) Sodium 131 L (136-145) mEq/L Potassium 3.8 (3.5-5.1) mEq/L Chloride 92 L (98-107) mEq/L Carbon Dioxide 25 (23-29) mEq/L BUN 32 H (8-23) mg/dL Creatinine 2.28 H (0.60-1.20) mg/dL Est GFR ( Amer) 26 L (> 60) Est GFR (Non-Af Amer) 22 L (> 60) BUN/Creatinine Ratio 14 (6-26) Glucose 693 H* (70-105) mg/dL Calculated Osmolality 312 H (280-300) Lactic Acid (0.5-2.2) mmol/L Calcium 9.2 (8.6-10.3) mg/dL Total Bilirubin 0.4 (0.3-1.0) mg/dL Direct Bilirubin 0.1 (0.0-0.2) mg/dL Indirect Bilirubin 0.3 (0.0-1.2) mg/dL AST 10 L (13-39) Units/L ALT 7 (7-52) Units/L Alkaline Phosphatase 107 H (34-104) Units/L Ammonia 23 (16-53) mcmol/L Creatine Kinase 46 (30-223) Units/L Troponin I 0.04 H* (< 0.04) ng/mL Serum Total Protein 6.4 (6.4-8.9) g/dL Albumin 3.7 (3.5-5.7) g/dL Globulin 2.7 (2.4-3.5) g/dL Albumin/Globulin Ratio 1.4 (1.1-2.2) TSH 1.041 (0.340-5.600) mcIU/mL Urine Color (Yellow) Urine Clarity (Clear) Urine pH (5.0-8.0) pH Units Ur Specific [place] (1.010-1.025) Urine Protein (Neg-Trace) mg/dL Urine Glucose (UA) (Normal) mg/dL Urine Ketones (Negative) mg/dL Urine Blood (Negative) Urine Nitrite (Negative) Urine Bilirubin (Negative) Urine Urobilinogen (Normal) mg/dL Ur Leukocyte Esterase (Negative) Ur Squamous Epith Cells (None-Few) per lpf Ur Culture Indicated? (NO) Salicylates < 2.5 L (15.0-30.0) mg/dL Urine Opiates Screen (Eivinc=070) ng/mL Acetaminophen < 10 L (10-20) mcg/mL Ur Barbiturates Screen (Nrkilk=472) ng/mL Ur Phencyclidine Scrn (Cutoff=25) ng/mL Ur Amphetamines Screen (Amkhec=0022) ng/mL U Benzodiazepines Scrn (Tmwgjh=743) ng/mL Urine Cocaine Screen (Cutoff= 300) ng/mL U Marijuana (THC) Screen (Cutoff = 50) ng/mL Ur Drug Screen Interp Ethyl Alcohol < 10 (Less than 10) mg/dL Blood Type Antibody Screen 12/13/18 12/13/18 12/13/18 Range/Units 17:50 17:50 17:50 WBC 10.6 (4.3-11.1) K/mcL RBC 3.65 L (3.82-4.97) M/mcL Hgb 9.6 L (11.5-15.4) g/dL Hct 30.3 L (35.3-44.9) % MCV 83.0 (83.0-100.0) fL MCH 26.3 L (28.0-33.3) pg MCHC 31.7 (31.6-35.5) g/dL RDW 14.0 (11.5-14.5) % Plt Count 270 (140-400) K/mcL MPV 11.4 (9.4-12.4) fL Immature Gran % 0.3 (0-4) % Seg Neutrophils % 78.7 % Lymphocytes % 12.5 % Monocytes % 7.9 % Eosinophils % 0.3 % Basophils % 0.3 % Neutrophils # 8.3 (1.6-8.9) K/mcL Lymphocytes # 1.3 (0.6-4.6) K/mcL Monocytes # 0.8 (0.0-1.3) K/mcL Eosinophils # 0.0 (0.0-0.6) K/mcL Basophils # 0.0 (0.0-0.2) K/mcL PT 11.6 (9.4-12.1) Seconds INR 1.0 APTT 27.5 (26.0-36.0) Seconds ABG pH (7.32-7.45) pH Units ABG pCO2 (35-45) mmHg ABG pO2 (85-104) mmHg ABG HCO3 (21-27) mEq/L ABG Total CO2 (20-26) mEq/L ABG O2 Saturation (95-98) % ABG Base Excess (-2 to 3) mEq/L Carboxyhemoglobin (0-5) % O2 Delivery Device Inspired O2 (1-15=lpm [id number]=%) Sodium (136-145) mEq/L Potassium (3.5-5.1) mEq/L Chloride (98-107) mEq/L Carbon Dioxide (23-29) mEq/L BUN (8-23) mg/dL Creatinine (0.60-1.20) mg/dL Est GFR ( Amer) (> 60) Est GFR (Non-Af Amer) (> 60) BUN/Creatinine Ratio (6-26) Glucose (70-105) mg/dL Calculated Osmolality (280-300) Lactic Acid (0.5-2.2) mmol/L Calcium (8.6-10.3) mg/dL Total Bilirubin (0.3-1.0) mg/dL Direct Bilirubin (0.0-0.2) mg/dL Indirect Bilirubin (0.0-1.2) mg/dL AST (13-39) Units/L ALT (7-52) Units/L Alkaline Phosphatase (34-104) Units/L Ammonia (16-53) mcmol/L Creatine Kinase (30-223) Units/L Troponin I (< 0.04) ng/mL Serum Total Protein (6.4-8.9) g/dL Albumin (3.5-5.7) g/dL Globulin (2.4-3.5) g/dL Albumin/Globulin Ratio (1.1-2.2) TSH (0.340-5.600) mcIU/mL Urine Color (Yellow) Urine Clarity (Clear) Urine pH (5.0-8.0) pH Units Ur Specific [place] (1.010-1.025) Urine Protein (Neg-Trace) mg/dL Urine Glucose (UA) (Normal) mg/dL Urine Ketones (Negative) mg/dL Urine Blood (Negative) Urine Nitrite (Negative) Urine Bilirubin (Negative) Urine Urobilinogen (Normal) mg/dL Ur Leukocyte Esterase (Negative) Ur Squamous Epith Cells (None-Few) per lpf Ur Culture Indicated? (NO) Salicylates (15.0-30.0) mg/dL Urine Opiates Screen (Bwoidb=694) ng/mL Acetaminophen (10-20) mcg/mL Ur Barbiturates Screen (Qbhjub=953) ng/mL Ur Phencyclidine Scrn (Cutoff=25) ng/mL Ur Amphetamines Screen (Lkciet=1029) ng/mL U Benzodiazepines Scrn (Lrsbqg=409) ng/mL Urine Cocaine Screen (Cutoff= 300) ng/mL U Marijuana (THC) Screen (Cutoff = 50) ng/mL Ur Drug Screen Interp Ethyl Alcohol (Less than 10) mg/dL Blood Type O POSITIVE Antibody Screen NEGATIVE 12/13/18 12/13/18 12/13/18 Range/Units 17:50 18:00 18:00 WBC (4.3-11.1) K/mcL RBC (3.82-4.97) M/mcL Hgb (11.5-15.4) g/dL Hct (35.3-44.9) % MCV (83.0-100.0) fL MCH (28.0-33.3) pg MCHC (31.6-35.5) g/dL RDW (11.5-14.5) % Plt Count (140-400) K/mcL MPV (9.4-12.4) fL Immature Gran % (0-4) % Seg Neutrophils % % Lymphocytes % % Monocytes % % Eosinophils % % Basophils % % Neutrophils # (1.6-8.9) K/mcL Lymphocytes # (0.6-4.6) K/mcL Monocytes # (0.0-1.3) K/mcL Eosinophils # (0.0-0.6) K/mcL Basophils # (0.0-0.2) K/mcL PT (9.4-12.1) Seconds INR APTT (26.0-36.0) Seconds ABG pH (7.32-7.45) pH Units ABG pCO2 (35-45) mmHg ABG pO2 (85-104) mmHg ABG HCO3 (21-27) mEq/L ABG Total CO2 (20-26) mEq/L ABG O2 Saturation (95-98) % ABG Base Excess (-2 to 3) mEq/L Carboxyhemoglobin (0-5) % O2 Delivery Device Inspired O2 (1-15=lpm [id number]=%) Sodium (136-145) mEq/L Potassium (3.5-5.1) mEq/L Chloride (98-107) mEq/L Carbon Dioxide (23-29) mEq/L BUN (8-23) mg/dL Creatinine (0.60-1.20) mg/dL Est GFR ( Amer) (> 60) Est GFR (Non-Af Amer) (> 60) BUN/Creatinine Ratio (6-26) Glucose (70-105) mg/dL Calculated Osmolality (280-300) Lactic Acid 1.9 (0.5-2.2) mmol/L Calcium (8.6-10.3) mg/dL Total Bilirubin (0.3-1.0) mg/dL Direct Bilirubin (0.0-0.2) mg/dL Indirect Bilirubin (0.0-1.2) mg/dL AST (13-39) Units/L ALT (7-52) Units/L Alkaline Phosphatase (34-104) Units/L Ammonia (16-53) mcmol/L Creatine Kinase (30-223) Units/L Troponin I (< 0.04) ng/mL Serum Total Protein (6.4-8.9) g/dL Albumin (3.5-5.7) g/dL Globulin (2.4-3.5) g/dL Albumin/Globulin Ratio (1.1-2.2) TSH (0.340-5.600) mcIU/mL Urine Color Yellow (Yellow) Urine Clarity Clear (Clear) Urine pH 5.0 (5.0-8.0) pH Units Ur Specific [place] > 1.030 H (1.010-1.025) Urine Protein 100 H (Neg-Trace) mg/dL Urine Glucose (UA) >=1000 H (Normal) mg/dL Urine Ketones Trace H (Negative) mg/dL Urine Blood Negative (Negative) Urine Nitrite Negative (Negative) Urine Bilirubin Negative (Negative) Urine Urobilinogen Normal (Normal) mg/dL Ur Leukocyte Esterase Negative (Negative) Ur Squamous Epith Cells Few (None-Few) per lpf Ur Culture Indicated? NO (NO) Salicylates (15.0-30.0) mg/dL Urine Opiates Screen Negative (Vkscqj=483) ng/mL Acetaminophen (10-20) mcg/mL Ur Barbiturates Screen Negative (Vajqdk=499) ng/mL Ur Phencyclidine Scrn Negative (Cutoff=25) ng/mL Ur Amphetamines Screen Negative (Ijpbmi=4009) ng/mL U Benzodiazepines Scrn Negative (Ddjwfi=493) ng/mL Urine Cocaine Screen Negative (Cutoff= 300) ng/mL U Marijuana (THC) Screen Negative (Cutoff = 50) ng/mL Ur Drug Screen Interp See Below Ethyl Alcohol (Less than 10) mg/dL Blood Type Antibody Screen 05/30/19 Range/Units 18:11 WBC (4.3-11.1) K/mcL RBC (3.82-4.97) M/mcL Hgb (11.5-15.4) g/dL Hct (35.3-44.9) % MCV (83.0-100.0) fL MCH (28.0-33.3) pg MCHC (31.6-35.5) g/dL RDW (11.5-14.5) % Plt Count (140-400) K/mcL MPV (9.4-12.4) fL Immature Gran % (0-4) % Seg Neutrophils % % Lymphocytes % % Monocytes % % Eosinophils % % Basophils % % Neutrophils # (1.6-8.9) K/mcL Lymphocytes # (0.6-4.6) K/mcL Monocytes # (0.0-1.3) K/mcL Eosinophils # (0.0-0.6) K/mcL Basophils # (0.0-0.2) K/mcL PT (9.4-12.1) Seconds INR APTT (26.0-36.0) Seconds ABG pH (7.32-7.45) pH Units ABG pCO2 (35-45) mmHg ABG pO2 (85-104) mmHg ABG HCO3 (21-27) mEq/L ABG Total CO2 (20-26) mEq/L ABG O2 Saturation (95-98) % ABG Base Excess (-2 to 3) mEq/L Carboxyhemoglobin 4.5 (0-5) % O2 Delivery Device Inspired O2 (1-15=lpm [id number]=%) Sodium (136-145) mEq/L Potassium (3.5-5.1) mEq/L Chloride (98-107) mEq/L Carbon Dioxide (23-29) mEq/L BUN (8-23) mg/dL Creatinine (0.60-1.20) mg/dL Est GFR ( Amer) (> 60) Est GFR (Non-Af Amer) (> 60) BUN/Creatinine Ratio (6-26) Glucose (70-105) mg/dL Calculated Osmolality (280-300) Lactic Acid (0.5-2.2) mmol/L Calcium (8.6-10.3) mg/dL Total Bilirubin (0.3-1.0) mg/dL Direct Bilirubin (0.0-0.2) mg/dL Indirect Bilirubin (0.0-1.2) mg/dL AST (13-39) Units/L ALT (7-52) Units/L Alkaline Phosphatase (34-104) Units/L Ammonia (16-53) mcmol/L Creatine Kinase (30-223) Units/L Troponin I (< 0.04) ng/mL Serum Total Protein (6.4-8.9) g/dL Albumin (3.5-5.7) g/dL Globulin (2.4-3.5) g/dL Albumin/Globulin Ratio (1.1-2.2) TSH (0.340-5.600) mcIU/mL Urine Color (Yellow) Urine Clarity (Clear) Urine pH (5.0-8.0) pH Units Ur Specific [place] (1.010-1.025) Urine Protein (Neg-Trace) mg/dL Urine Glucose (UA) (Normal) mg/dL Urine Ketones (Negative) mg/dL Urine Blood (Negative) Urine Nitrite (Negative) Urine Bilirubin (Negative) Urine Urobilinogen (Normal) mg/dL Ur Leukocyte Esterase (Negative) Ur Squamous Epith Cells (None-Few) per lpf Ur Culture Indicated? (NO) Salicylates (15.0-30.0) mg/dL Urine Opiates Screen (Mdfenk=040) ng/mL Acetaminophen (10-20) mcg/mL Ur Barbiturates Screen (Frqvgx=146) ng/mL Ur Phencyclidine Scrn (Cutoff=25) ng/mL Ur Amphetamines Screen (Nvownx=6593) ng/mL U Benzodiazepines Scrn (Lykgom=967) ng/mL Urine Cocaine Screen (Cutoff= 300) ng/mL U Marijuana (THC) Screen (Cutoff = 50) ng/mL Ur Drug Screen Interp Ethyl Alcohol (Less than 10) mg/dL Blood Type Antibody Screen Attestation Statement - Attestation Attestation: I have seen this patient with the resident physician, I have personally evaluated this patient. I had reviewed the chart and document dictation by the resident physician and aM in agreement with the information documented by the resident physician. Please see documentation by the resident physician for complete chart including past medical history, family medical history, review of systems, current history and physical and laboratory and imaging studies. I was present for all procedures, provided direct supervision for all procedures , was present for the entirety of all procedures and provided direct guidance during the procedures. Please see documentation by the resident physician for any procedures performed. I have reviewed all interpretations of EKGs, and reviewed all EKGs performed on patient's as well. I have also reviewed reports of imaging as provided by radiology. Patient presented via EMS for altered mental status, she was found by her neighbor unresponsive in her home, EMS was called, they report that she does respond to noxious stimuli by moaning and opening her eyes and seems to localize somewhat but no comprehensible sounds. They report a critical high blood sugar. They report that they did run on this patient a few days ago when she was brought to the emergency department after a fall and altered mental status. They report that she seems more out of it today than she did at that point in time. No history otherwise is available unknown as to when she was last seen normal. On arrival, GCS is approximately 9, eyes are open spontaneously, but does not engage, no real verbal, does localize to pain. Pupils seem relatively pinpoint and minimally reactive bilaterally. No other evidence of trauma to the face. As we continue to examine her she does start to follow some very simple commands will open her mouth when asked but does not talk. There is multiple bruises on the patient varying ages, bruise on the anterior chest, her some bruising of the abdomen which is difficult to assess as to whether or not this is were insulin or from trauma. Lungs are clear, heart is regular abdomen is morbidly obese seemingly nontender. No obvious deformities to the extremities, no step-off of the spine. The skin is warm dry without rash or petechiae there is some evidence of yeast under the breasts bilaterally. Rectal temperature was checked and was within acceptable limits fingerstick was critical high. Vital signs were all within acceptable limits. ABG was obtained which showed normal pH, no evidence of CO2 retention, oxygenation within acceptable limits. Patient sent for head CT and cervical spine CT chest abdomen pelvis CT for potential trauma. All imaging as interpreted by radiology showed no acute findings. Patient had an IV placed, initially IV fluids were ordered, we also had initially ordered intravenous Narcan, however her line infiltrated prior to this she was then given intranasal Narcan which actually woke this patient up. She still remained somewhat lethargic but is now answering questions, states she does not remember what happened. She is oriented to year and location and name. Laboratory studies were all within acceptable limits apart from hyperglycemia of 693, without significant gap without evidence of acidosis, she was provided with continued IV hydration for hyperosmolar nonketotic hyperglycemia, unclear as to whether or not her symptoms of altered mentation are related to hyperosmolar nonketotic coma versus seemingly some pain medication-related issues, urine drug screen however is negative, and salicylate and Tylenol levels were ordered to rule out any evidence to suggest overdose of pain medications with Tylenol and these were within acceptable limits and negative as well. Patient will be admitted to the hospital for further evaluation and management, multiple neurologic recheck showed that the patient continues to improve. She does have a history of seizures in the past, she was not incontinent of urine she has no evidence of tongue biting, she had no evidence of seizure upon arrival, this would have been a very prolonged postictal phase, and again she seemed to respond to Narcan. Total critical care time as provided by myself excluding any procedures performed was 50 minutes
--- NOTE | 2018-12-13 21:13 | Internal Med History&Physical ---
<Spike España S - Last Filed: 12/13/18 23:39> Date of Encounter: 12/13/18 Time of Encounter: 21:35 Internal Medicine - H&P: HPI Chief complaint: high sugar Admitted From: Home Plans for Post Hospital Care: Home History of present illness: Ms. Valladares is a 63 year old female with PMH of diabetes, renal disease, hyperlipidemia, hypertension, and DVT presents to ER from home. She is known to be noncompliant and has a hx of frequent falls. She was found down for an unknown amount of time per ER resident. The pt is unable to provide much hx, states that she didn't take her insulin this morning but that she monitors her BG. She states that her BG this AM was 123. She states that she has been around sick people and that her neighbors haven't been feeling good but that she hasn't recently been sick. In the ER she was found to have a BG of 693. She was started on DKA/HHS protocol and given fluid boluses. CK was WNL. Troponin 0.04 on admission. Imaging revealed no sources of infxn. She will be admitted to . Past Med Surg Social Fam HX - Past Medical History Medical history: diabetes, renal disease, hyperlipidemia, hypertension, other, non-contributory, DVT Additional medical history: Pt resides at [facility] Psychiatric history: no psych history, anxiety, bipolar, depression - Past Surgical History Surgical History: orthopedic, other, other Additional surgical history: Left lower leg ginger (fractured leg) - Social History Smoking Status: Unknown if ever smoked Smokeless Tobacco Status: No Alcohol use: none Drug use: none - Family History Brother Family Member Ethnicity: Non- Living Status: Still Living Sister Family Member Ethnicity: Non- Living Status: Still Living Hx Family Cardiac Disorders: Yes (HTN) Mother Family Member Ethnicity: Non- Living Status: Hx Family Cardiac Disorders: Yes ([place]) Hx Family Endocrine Disorder: Yes (DM) Father Family Member Ethnicity: Non- Living Status: Internal Medicine - H&P: Meds Acetaminophen [Tylenol] 650 mg PO Q6HR PRN 11/19/18 [History] Epoetin Abdifatah [Procrit] 10,000 unit IM Q14D 11/19/18 [History] Albuterol Sulfate [Albuterol Inhaler] 2 puff IH Q6H PRN #1 inhaler 11/21/18 [Rx] Amlodipine Besylate 5 mg PO DAILY #30 tablet 11/21/18 [Rx] Benzonatate [Tessalon] 200 mg PO TID PRN #60 capsule 11/21/18 [Rx] Cholecalciferol (D-3) [Vitamin D] 1,000 unit PO DAILY #30 tablet 11/21/18 [Rx] Gabapentin [Neurontin] 100 mg PO BID #60 capsule 11/21/18 [Rx] Insulin NPH, HUMAN [HumuLIN N] 25 units SQ BID 30 Days vial 11/21/18 [Rx] Nystatin POWDER [Nystop] 1 appl TP TID PRN #1 bottle 11/21/18 [Rx] Apixaban [Eliquis] 2.5 mg PO BID 12/09/18 [History] Atorvastatin [Lipitor] 40 mg PO HS 12/09/18 [History] Escitalopram [Lexapro] 10 mg PO DAILY 12/09/18 [History] Ferrous Sulfate [Iron] 325 mg PO BIDWM 12/09/18 [History] Furosemide [Lasix] 20 mg PO DAILY 12/09/18 [History] Isosorbide DInitrate [Isordil] 10 mg PO TID 12/09/18 [History] Paricalcitol [Zemplar] 1 mcg PO DAILY 12/09/18 [History] hydrALAZINE [HydrALAZINE] 75 mg PO TID 12/09/18 [History] lamoTRIgine [Lamotrigine] 200 mg PO BID 12/09/18 [History] levETIRAcetam [Roweepra] 750 mg PO BID 12/09/18 [History] Glucagon,Human Recombinant [Glucagon Emergency Kit] 1 mg IM ONCE PRN 12/13/18 [ History] Insulin ASPART [Novolog Flexpen] 0 unit SQ TIDAC 12/13/18 [History] Allergy/AdvReac Type Severity Reaction Status Date / Time acetaminophen [From Percocet] Allergy Hallucinati Verified 12/11/18 11:38 ng adhesive Allergy Rash Verified 12/11/18 11:38 codeine Allergy Rash Verified 12/11/18 11:38 ibuprofen [From Advil] Allergy Rash Verified 12/11/18 11:38 NSAIDS (Non-Steroidal Allergy Rash Verified 12/11/18 11:38 Anti-Inflamma Glucagon AdvReac Confusion Verified 12/11/18 11:38 oxycodone [From Percocet] AdvReac Hallucinati Verified 12/11/18 11:38 ng ROS unobtainable: due to mental status All Systems PM: A 10-system review of systems was performed and is negative for pertinent findings except as documented above in the HPI. - Constitutional Vitals: Temp Pulse Resp BP Pulse Ox 97.4 F L 81 16 152/86 96 12/13/18 17:21 12/13/18 20:25 12/13/18 20:25 12/13/18 20:25 12/13/18 20:25 Exam: General - AOx2, somnolent, arouses to pain and verbal stimuli HEENT - dry MM, no scleral icterus, NCAT, abrasions to the forehead Neck - supple, no JVD Cardio - RRR, s1s2 cta no mrg lungs - ctab, no wheeze/rhonchi/rales, not in respiratory distress abd - soft, nontender, no peritoneal signs, no rebound or guarding, no bruising noted extremities - moves to painful stimuli, no bruising or open wounds noted, no pitting edema skin - intact, some mild abrasions to the face, no obvious open wounds, poor skin turgor, delayed capillary refill neuro - unable to assess, pt not cooperative with CN testing psych - somnolent Internal Med - H&P Results - Labs CBC & Chem 7: 12/13/18 17:50 12/13/18 21:53 Labs: Short CBC 12/13/18 Range/Units 17:50 WBC 10.6 (4.3-11.1) K/mcL Hgb 9.6 L (11.5-15.4) g/dL Hct 30.3 L (35.3-44.9) % Plt Count 270 (140-400) K/mcL Neutrophils # 8.3 (1.6-8.9) K/mcL BMP 12/13/18 17:21 Sodium 131 L Potassium 3.8 Chloride 92 L Carbon Dioxide 25 BUN 32 H Creatinine 2.28 H Glucose 693 H* Calcium 9.2 Cardiac Enzymes 12/13/18 Range/Units 17:21 Troponin I 0.04 H* (< 0.04) ng/mL Liver Function 12/13/18 Range/Units 17:21 Total Bilirubin 0.4 (0.3-1.0) mg/dL Direct Bilirubin 0.1 (0.0-0.2) mg/dL AST 10 L (13-39) Units/L ALT 7 (7-52) Units/L Alkaline Phosphatase 107 H (34-104) Units/L Albumin 3.7 (3.5-5.7) g/dL Urine 12/13/18 Range/Units 18:00 Urine Color Yellow (Yellow) Urine Clarity Clear (Clear) Urine pH 5.0 (5.0-8.0) pH Units Ur Specific [place] > 1.030 H (1.010-1.025) Urine Protein 100 H (Neg-Trace) mg/dL Urine Glucose (UA) >=1000 H (Normal) mg/dL - ABG Interpretation ABG results: 12/13/18 17:36 ABG pH 7.41 ABG pCO2 40 ABG pO2 63 L ABG HCO3 26 ABG Total CO2 27 H ABG O2 Saturation 92 L ABG Base Excess 1 - Impressions ITS Impressions Abdomen/Pelvis CT 12/13/18 17:20 IMPRESSION: Within the chest there is nodular injection of the subcutaneous fat in the anterior chest wall. This could be from prior trauma. Correlate with clinical exam. No pneumonia, pulmonary edema, or pneumothorax. There is coronary artery disease No acute abnormality seen in the abdomen or pelvis D/ / Sergio Enamorado MD / Sergio Enamorado MD Interpreting Provider: Sergio Enamorado MD Chest CT 12/13/18 17:20 IMPRESSION: Within the chest there is nodular injection of the subcutaneous fat in the anterior chest wall. This could be from prior trauma. Correlate with clinical exam. No pneumonia, pulmonary edema, or pneumothorax. There is coronary artery disease No acute abnormality seen in the abdomen or pelvis D/ / Sergio Enamorado MD / Sergio Enamorado MD Interpreting Provider: Sergio Enamorado MD Head CT 12/13/18 17:20 IMPRESSION: Mild chronic small ischemic disease and age related involutional change without acute intracranial bleed, midline shift or mass effect. No acute fracture or traumatic malalignment of the cervical spine. D/ / Héctor Baum / Héctor Baum Interpreting Provider: Héctor Baum Chest X-Ray 12/13/18 17:21 IMPRESSION: No acute process. D/ / Franky Silveira MD / Franky Silveira MD Interpreting Provider: Farnky Silveira MD Cervical Spine CT 12/13/18 17:48 IMPRESSION: Mild chronic small ischemic disease and age related involutional change without acute intracranial bleed, midline shift or mass effect. No acute fracture or traumatic malalignment of the cervical spine. D/ / Héctor Baum / Héctor Baum Interpreting Provider: Héctor Baum - Assessment and Plan (1) Type 2 diabetes mellitus with hyperosmolar nonketotic hyperglycemia Current Visit: Yes Status: Acute Assessment and plan: Pt presents from home with BG 693 - hx of noncompliance - reports BG 123 this morning but that she didn't take her insulin UDS negative No evidence for acute infxn on abd/pelvis or chest CT Head CT negative for acute changes, C spine CT negative XR chest negative for acute cardiopulmonary process EKG negative for acute ST changes or ischemia UA negative for acute infxn Pt without a gap; AG = 14 Plan: - blood cx pending - continue fluids per protocol - insulin drip per protocol - continue telemetry monitoring - BMP q2hr - accucheck q1hr - beta hydroxbutyrate pending - magneisum pending - HbA1c pending - plan to overlap SQ with IV insulin when glucose appropriate pt takes 25U BID Humalin at home with TID SSI will plan to do 10-15 U SQ levemir - FEN: NPO - DVT prophylaxis: SCD, abixaban - dispo: PTOT to see, syncope workup, HHS resolution (2) Fall Current Visit: No Status: Acute Assessment and plan: Pt reportedly has syncope and collapse at home. Denies reports of this. CT head negative. C-spine CT negative. Unknown down town. CK WNL. EKG without acute changes; troponin 0.04, will trend x 3 ECHO pending, carotid duplex pending. Qualifiers: Encounter type: initial encounter Qualified Code(s): W19.XXXA - Unspecified fall, initial encounter (3) Elevated troponin Current Visit: Yes Status: Acute Assessment and plan: Troponin 0.04, likely demand ischemia. Will trend x3. ECHO pending. No acute ST changes or signs of ischemia on EKG. (4) DVT prophylaxis Current Visit: No Status: Acute Assessment and plan: abixaban, scd (5) Anxiety and depression Current Visit: No Status: Chronic Assessment and plan: Con't home rx when reconciled. (6) Bipolar depression Current Visit: No Status: Chronic Assessment and plan: Continue home rx when reconciled. (7) CKD (chronic kidney disease), stage IV Current Visit: No Status: Chronic Assessment and plan: Chronic. Kidney fxn around baseline. Continue to monitor renal fxn. (8) HTN (hypertension) Current Visit: No Status: Chronic Assessment and plan: Chronic. Continue home medications when reconciled. Qualifiers: Hypertension type: unspecified Qualified Code(s): I10 - Essential (primary) hypertension (9) Hx of deep venous thrombosis Current Visit: No Status: Chronic Assessment and plan: On eliquis. Chronic. Resume home rx. (10) Obesity (BMI 30-39.9) Current Visit: No Status: Chronic Assessment and plan: BMI 38.6, chronic. (11) Seizure disorder Current Visit: No Status: Chronic Assessment and plan: Continue home medications once reconciled. Seizure precautions. (12) Type 2 diabetes mellitus Current Visit: No Status: Chronic Assessment and plan: longterm T2DM with hx of noncompliance. Previous HbA1c 8.7% in 11/19/18. See plan as above for HHS. 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 CT head negative. See plan as above. - Time Spent With Patient Total time spent is greater than 50% in coordination of care (as documented) at patient's floor/unit and/or counseling patient: 25 - 35 minutes <Omega Lofton - Last Filed: 12/14/18 08:31> Date of Encounter: 12/14/18 Internal Medicine - H&P: HPI History of present illness: Ms. Valladares is a 63 year old female All Systems PM: A 10-system review of systems was performed and is negative for pertinent findings except as documented above in the HPI. - Constitutional Vitals: Temp Pulse Resp BP Pulse Ox 98.0 F 72 18 167/68 97 12/14/18 07:48 12/14/18 07:48 12/14/18 07:48 12/14/18 07:48 12/14/18 07:48 Internal Med - H&P Results - Labs CBC & Chem 7: 12/14/18 03:29 12/14/18 07:41 Labs: Short CBC 12/13/18 12/14/18 Range/Units 17:50 03:29 WBC 10.6 10.0 (4.3-11.1) K/mcL Hgb 9.6 L 8.9 L (11.5-15.4) g/dL Hct 30.3 L 27.9 L (35.3-44.9) % Plt Count 270 246 (140-400) K/mcL Neutrophils # 8.3 7.7 (1.6-8.9) K/mcL BMP 12/13/18 12/13/18 12/14/18 17:21 21:53 03:29 Sodium 131 L 134 L 139 Potassium 3.8 3.6 3.0 L Chloride 92 L 101 104 Carbon Dioxide 25 20 L 25 BUN 32 H 29 H 26 H Creatinine 2.28 H 2.04 H 1.98 H Glucose 693 H* 566 H* 268 H Calcium 9.2 8.3 L 8.5 L 12/14/18 07:41 Sodium 139 Potassium 3.3 L Chloride 106 Carbon Dioxide 24 BUN 24 H Creatinine 1.88 H Glucose 217 H Calcium 8.6 Cardiac Enzymes 12/13/18 12/13/18 12/14/18 Range/Units 17:21 21:53 03:29 Troponin I 0.04 H* 0.05 H* 0.05 H* (< 0.04) ng/mL Liver Function 12/13/18 Range/Units 17:21 Total Bilirubin 0.4 (0.3-1.0) mg/dL Direct Bilirubin 0.1 (0.0-0.2) mg/dL AST 10 L (13-39) Units/L ALT 7 (7-52) Units/L Alkaline Phosphatase 107 H (34-104) Units/L Albumin 3.7 (3.5-5.7) g/dL Urine 12/13/18 Range/Units 18:00 Urine Color Yellow (Yellow) Urine Clarity Clear (Clear) Urine pH 5.0 (5.0-8.0) pH Units Ur Specific [place] > 1.030 H (1.010-1.025) Urine Protein 100 H (Neg-Trace) mg/dL Urine Glucose (UA) >=1000 H (Normal) mg/dL - ABG Interpretation ABG results: 12/13/18 17:36 ABG pH 7.41 ABG pCO2 40 ABG pO2 63 L ABG HCO3 26 ABG Total CO2 27 H ABG O2 Saturation 92 L ABG Base Excess 1 - Impressions ITS Impressions Abdomen/Pelvis CT 12/13/18 17:20 IMPRESSION: Within the chest there is nodular injection of the subcutaneous fat in the anterior chest wall. This could be from prior trauma. Correlate with clinical exam. No pneumonia, pulmonary edema, or pneumothorax. There is coronary artery disease No acute abnormality seen in the abdomen or pelvis D/ / Sergio Enamorado MD / Sergio Enamorado MD Interpreting Provider: Sergio Enamorado MD Chest CT 12/13/18 17:20 IMPRESSION: Within the chest there is nodular injection of the subcutaneous fat in the anterior chest wall. This could be from prior trauma. Correlate with clinical exam. No pneumonia, pulmonary edema, or pneumothorax. There is coronary artery disease No acute abnormality seen in the abdomen or pelvis D/ / Sergio Enamorado MD / Sergio Enamorado MD Interpreting Provider: Sergio Enamorado MD Head CT 12/13/18 17:20 IMPRESSION: Mild chronic small ischemic disease and age related involutional change without acute intracranial bleed, midline shift or mass effect. No acute fracture or traumatic malalignment of the cervical spine. D/ / Héctor Baum / Héctor Baum Interpreting Provider: Héctor Baum Chest X-Ray 12/13/18 17:21 IMPRESSION: No acute process. D/ / Franky Silveira MD / Franky Silveira MD Interpreting Provider: Franky Silveira MD Cervical Spine CT 12/13/18 17:48 IMPRESSION: Mild chronic small ischemic disease and age related involutional change without acute intracranial bleed, midline shift or mass effect. No acute fracture or traumatic malalignment of the cervical spine. D/ / Héctor Baum / Héctor Baum Interpreting Provider: Héctor Baum - Time Spent With Patient Total time spent is greater than 50% in coordination of care (as documented) at patient's floor/unit and/or counseling patient: - Attending Attestation I saw and evaluated the patient. I reviewed the residents note, performed my own physical examination and agree with findings and plan as documented in the residents note. Patient seen and examined on 12/13/18. patient presented with HHS, elevated glucose of over 600. Patient not answering questions for me in the ER. Elevated blood pressure as well, we will administer hydralazine. Continue to monitor on 2N, HHS protocol.
[2018-12-13] MEDS ORDERED: Insulin Regular, Human 100 UNIT/ML IV PRN (21:15)
[2018-12-13] MEDS ORDERED: *HR* Dextrose 50 % in Water (Syg) 50 ML SYRINGE IVP PRN ×2 (21:15→21:29)
[2018-12-13] MEDS ORDERED: Insulin Human Regular 100 UNIT in 0.9 % Sodium Chloride 100 ML IVC SCH (21:15)
[2018-12-13] MEDS ORDERED: Naloxone 0.4 MG/ML INJ IVP PRN (21:29)
[2018-12-13] MEDS ORDERED: Ondansetron 4 MG/2 ML VIAL IVP PRN (21:29)
[2018-12-13] MEDS ORDERED: D5% in 0.45% NACL 1,000 ML IVC PRN (21:33)
[2018-12-13] MEDS ORDERED: 0.9 % Sodium Chloride 1,000 ML IVC PRN (21:45)
[2018-12-13 22:23] LABS: Estimated Average Glucose 263 mg/dl; Hemoglobin A1C 10.8 %
[2018-12-13 22:24] LABS: Magnesium 1.9 mg/dL (1.6-2.6); Phosphorous 3.7 mg/dL (2.7-4.5)
[2018-12-13 22:31] LABS: Calcium 8.3 mg/dL (8.6-10.3); Potassium 3.6 mEq/L (3.5-5.1); Troponin I 0.05 ng/mL (< 0.04)
[2018-12-14] MEDS: 0.45 % Sodium Chloride w/KCl 20 MEQ/1,000 ML MLS IVC SCH ×3 (01:17→19:52)
[2018-12-14] MEDS: Apixaban 2.5 MG TABLET PO SCH ×3 (01:52→20:35)
[2018-12-14 04:14] LABS: Basophils % 0.4 %; Calcium 8.5 mg/dL (8.6-10.3); Eosinophils # 0.2 K/mcL (0.0-0.6); Eosinophils % 1.6 %; Hematocrit 27.9 % (35.3-44.9); Hemoglobin 8.9 g/dL (11.5-15.4); Immature Granulocytes % 0.3 % (0-4); Lymphocytes # 1.1 K/mcL (0.6-4.6); Lymphocytes % 11.2 %; Mean Corpuscular HGB Conc 31.9 g/dL (31.6-35.5); Mean Corpuscular Hemoglobin 26.6 pg (28.0-33.3); Mean Corpuscular Volume 83.3 fL (83.0-100.0); Mean Platelet Volume 11.1 fL (9.4-12.4); Monocytes % 9.6 %; Neutrophils # 7.7 K/mcL (1.6-8.9); Platelet Count 246 K/mcL (140-400); Red Blood Count 3.35 M/mcL (3.82-4.97); Red Cell Distribution Width 13.8 % (11.5-14.5); Segmented Neutrophils % 76.9 %
[2018-12-14] MEDS ORDERED: Potassium Chloride 40 MEQ, Lidocaine 1% 2 ML in D5% in Water 500 ML IVPB ONE (04:16)
[2018-12-14] MEDS: D5% in 0.45% NACL w KCl 20 MEQ/1,000 ML MLS IVC PRN ×2 (04:52→19:02)
[2018-12-14] MEDS: Insulin Human Regular 100 UNIT in 0.9 % Sodium Chloride 100 ML IVC SCH ×2 (05:07→08:12)
[2018-12-14] MEDS: levETIRAcetam 250 MG TABLET PO SCH ×2 (07:34→20:34)
[2018-12-14] MEDS: lamoTRIgine 100 MG TABLET PO SCH ×2 (07:34→20:34)
[2018-12-14 08:21] LABS: Calcium 8.6 mg/dL (8.6-10.3); Potassium 3.3 mEq/L (3.5-5.1)
--- NOTE | 2018-12-14 09:07 | Internal Med Progress Note ---
Hospitalist Progress Note - Encounter Date of Encounter: 12/14/18 Time of Encounter: 09:04 - Subjective Interval History: I have seen and evaluated the patient at bedside. Patient reports feeling better today. reports yesterday she only took 2 units of her short acting insulin during the whole day. she denies chest pain, fever, chills, abdominal pain or productive cough. - Exam Vitals: Temp Pulse Resp BP Pulse Ox 98.0 F 72 18 167/68 97 12/14/18 07:48 12/14/18 07:48 12/14/18 07:48 12/14/18 07:48 12/14/18 07:48 Exam: Vitals: Reviewed General: Alert and oriented x4. In mild distress due to generalized weakness Skin: Normal color, no rash, no lesions. HEENT: Dry mucus membrane, EOM, pupils equal, round and reactive. Cardiovascular: RRR, normal S1 & S2, no rubs, murmurs or gallops. Lungs: CTA b/l, no wheezes or crackles. Abdomen: Obese, soft, non-tender, no rigidity. Extremities: No edema Neurological: No focal neurological deficits Rest of the physical exam is non contributory - Assessment and Plan (1) Type 2 diabetes mellitus with hyperosmolar nonketotic hyperglycemia Current Visit: Yes Status: Resolved Assessment and Plan: patient reported only taking 2 units of her short acting insulin during the whole day yesterday. Plan started on carbs controlled diet levemir 10 units BID continue insulin drip, discontinue it 1 hour after patient receives long acting insulin. lispro 4 unit ac. continue IV hydration. on D5/0.45NS @75ml/hr. (2) CKD (chronic kidney disease), stage IV Current Visit: No Status: Chronic Assessment and Plan: slightly worsened on presentation likely due to dehydration in the setting of HHS. will continue IV hydration. avoid nephrotoxic medications will re-assess kidney function tomorrow morning. (3) Obesity (BMI 30-39.9) Current Visit: No Status: Chronic (4) Bipolar depression Current Visit: No Status: Chronic Assessment and Plan: patient is on lamotrigine 200mg/PO BID. (5) HTN (hypertension) Current Visit: No Status: Chronic Assessment and Plan: Patient is on isosorbide 10 mg by mouth 3 times a day. hydralazine 25mg/PO TID added. (6) Hx of deep venous thrombosis Current Visit: No Status: Chronic Assessment and Plan: patient is on apixaban 2.5mg/PO BID. (7) Anxiety and depression Current Visit: No Status: Chronic Assessment and Plan: Continue escitalopram 10 mg by mouth daily. (8) Seizure disorder Current Visit: No Status: Chronic Assessment and Plan: Patient is on lamotrigine 200 mg by mouth twice a day, and levetiracetam 750mg/PO BID. (9) Fall Current Visit: No Status: Acute Assessment and Plan: fall precautions. PT/OT evaluation. (10) Acute metabolic encephalopathy Current Visit: Yes Status: Resolved (11) Elevated troponin Current Visit: Yes Status: Acute Assessment and Plan: possible due to demand ischemia. patient denies chest pain, nausea or vomiting. no ekg changes. (12) HLD (hyperlipidemia) Current Visit: No Status: Chronic Assessment and Plan: Patient is on atorvastatin 40 mg by mouth at bedtime. DVT Prophylaxis: patient is on an oral anticoagulant due to a Hx of DVT. - Summary of Assessment and Plan Summary of Assessment and Plan: patient to remain in the hospital due to resolving HHS. - Time Spent with Patient Total time spent is greater than 50% in coordination of care (as documented) at patient's floor/unit and/or counseling patient: Greater than 35 minutes (40) Plan of Care Discussed with: patient (and the nurse.) Internal Medicine: Result - Labs CBC & Chem 7: 12/14/18 03:29 12/14/18 07:41 Labs: Short CBC 12/13/18 12/14/18 Range/Units 17:50 03:29 WBC 10.6 10.0 (4.3-11.1) K/mcL Hgb 9.6 L 8.9 L (11.5-15.4) g/dL Hct 30.3 L 27.9 L (35.3-44.9) % Plt Count 270 246 (140-400) K/mcL Neutrophils # 8.3 7.7 (1.6-8.9) K/mcL BMP 12/13/18 12/13/18 12/14/18 17:21 21:53 03:29 Sodium 131 L 134 L 139 Potassium 3.8 3.6 3.0 L Chloride 92 L 101 104 Carbon Dioxide 25 20 L 25 BUN 32 H 29 H 26 H Creatinine 2.28 H 2.04 H 1.98 H Glucose 693 H* 566 H* 268 H Calcium 9.2 8.3 L 8.5 L 12/14/18 07:41 Sodium 139 Potassium 3.3 L Chloride 106 Carbon Dioxide 24 BUN 24 H Creatinine 1.88 H Glucose 217 H Calcium 8.6 Cardiac Enzymes 12/13/18 12/13/18 12/14/18 Range/Units 17:21 21:53 03:29 Troponin I 0.04 H* 0.05 H* 0.05 H* (< 0.04) ng/mL Liver Function 12/13/18 Range/Units 17:21 Total Bilirubin 0.4 (0.3-1.0) mg/dL Direct Bilirubin 0.1 (0.0-0.2) mg/dL AST 10 L (13-39) Units/L ALT 7 (7-52) Units/L Alkaline Phosphatase 107 H (34-104) Units/L Albumin 3.7 (3.5-5.7) g/dL Urine 12/13/18 Range/Units 18:00 Urine Color Yellow (Yellow) Urine Clarity Clear (Clear) Urine pH 5.0 (5.0-8.0) pH Units Ur Specific [place] > 1.030 H (1.010-1.025) Urine Protein 100 H (Neg-Trace) mg/dL Urine Glucose (UA) >=1000 H (Normal) mg/dL - ABG Interpretation ABG results: ABG ABG pH 7.41 pH Units (7.32-7.45) 12/13/18 17:36 ABG pCO2 40 mmHg (35-45) 12/13/18 17:36 ABG pO2 63 mmHg (85-104) L 12/13/18 17:36 ABG O2 Saturation 92 % (95-98) L 12/13/18 17:36 PT/INR, D-dimer PT 11.6 Seconds (9.4-12.1) 12/13/18 17:50 - Impressions Impressions Abdomen/Pelvis CT 12/13/18 17:20 IMPRESSION: Within the chest there is nodular injection of the subcutaneous fat in the anterior chest wall. This could be from prior trauma. Correlate with clinical exam. No pneumonia, pulmonary edema, or pneumothorax. There is coronary artery disease No acute abnormality seen in the abdomen or pelvis D/ / Sergio Enamorado MD / Sergio Enamorado MD Interpreting Provider: Sergio Enamorado MD Chest CT 12/13/18 17:20 IMPRESSION: Within the chest there is nodular injection of the subcutaneous fat in the anterior chest wall. This could be from prior trauma. Correlate with clinical exam. No pneumonia, pulmonary edema, or pneumothorax. There is coronary artery disease No acute abnormality seen in the abdomen or pelvis D/ / Sergio Enamorado MD / eSrgio Enamorado MD Interpreting Provider: Sergio Enamorado MD Head CT 12/13/18 17:20 IMPRESSION: Mild chronic small ischemic disease and age related involutional change without acute intracranial bleed, midline shift or mass effect. No acute fracture or traumatic malalignment of the cervical spine. D/ / Héctor Baum / Héctor Baum Interpreting Provider: Héctor Baum Chest X-Ray 12/13/18 17:21 IMPRESSION: No acute process. D/ / Franky Silveira MD / Franky Silveira MD Interpreting Provider: Franky Silveira MD Cervical Spine CT 12/13/18 17:48 IMPRESSION: Mild chronic small ischemic disease and age related involutional change without acute intracranial bleed, midline shift or mass effect. No acute fracture or traumatic malalignment of the cervical spine. D/ / Héctor Baum / Héctor Baum Interpreting Provider: Héctor Baum Consult Discharge Plan - Plan Referrals: NONE,PCP [Primary Care Provider] - (5) HTN (hypertension) Qualifiers: Hypertension type: unspecified Qualified Code(s): I10 - Essential (primary) hypertension (9) Fall Qualifiers: Encounter type: initial encounter Qualified Code(s): W19.XXXA - Unspecified fall, initial encounter (12) HLD (hyperlipidemia) Qualifiers: Hyperlipidemia type: mixed hyperlipidemia Qualified Code(s): E78.2 - Mixed hyperlipidemia
[2018-12-14 11:12] LABS: Calcium 8.9 mg/dL (8.6-10.3); Potassium 3.8 mEq/L (3.5-5.1)
[2018-12-14 11:25] LABS: Troponin I 0.04 ng/mL (< 0.04)
[2018-12-14] MEDS: Insulin DETEMIR 100 UNIT/ML X5UNITS SQ SCH ×2 (11:29→20:35)
[2018-12-14] MEDS: Insulin LISPRO 300 UNITS/3 ML VIAL SQ SCH ×4 (12:08→16:15)
[2018-12-14] MEDS ORDERED: Perflutren Lipid Microsphere 1.3 ML in 0.9 % Sodium Chloride 8.7 ML IVP ONE (13:31)
[2018-12-14] MEDS: hydrALAZINE 25 MG TABLET PO SCH ×2 (16:10→23:28)
[2018-12-14 21:01] LABS: Calcium 8.6 mg/dL (8.6-10.3); Potassium 4.5 mEq/L (3.5-5.1)
--- NOTE | 2018-12-14 21:07 | Electrocardiograph Report ---
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
[2018-12-14] MEDS: 0.9 % Sodium Chloride 1,000 ML IVC SCH (23:28)
[2018-12-15] MEDS ORDERED: Insulin LISPRO 300 UNITS/3 ML VIAL SQ ONE ×2 (00:03→02:00)
[2018-12-15 07:26] LABS: Basophils % 0.5 %; Eosinophils # 0.3 K/mcL (0.0-0.6); Eosinophils % 3.5 %; Hematocrit 29.4 % (35.3-44.9); Hemoglobin 8.8 g/dL (11.5-15.4); Immature Granulocytes % 0.3 % (0-4); Lymphocytes # 1.5 K/mcL (0.6-4.6); Mean Corpuscular HGB Conc 29.9 g/dL (31.6-35.5); Mean Corpuscular Hemoglobin 25.8 pg (28.0-33.3); Mean Corpuscular Volume 86.2 fL (83.0-100.0); Mean Platelet Volume 11.7 fL (9.4-12.4); Monocytes # 0.7 K/mcL (0.0-1.3); Monocytes % 9.3 %; Neutrophils # 5.3 K/mcL (1.6-8.9); Platelet Count 229 K/mcL (140-400); Red Blood Count 3.41 M/mcL (3.82-4.97); Red Cell Distribution Width 14.6 % (11.5-14.5); Segmented Neutrophils % 67.4 %
[2018-12-15] MEDS: 0.9 % Sodium Chloride 1,000 ML IVC SCH (08:11)
[2018-12-15] MEDS: levETIRAcetam 250 MG TABLET PO SCH ×2 (08:12→19:48)
[2018-12-15] MEDS: Apixaban 2.5 MG TABLET PO SCH ×2 (08:12→19:48)
[2018-12-15] MEDS: hydrALAZINE 25 MG TABLET PO SCH ×2 (08:12→16:33)
[2018-12-15] MEDS: lamoTRIgine 100 MG TABLET PO SCH ×2 (08:12→19:48)
[2018-12-15] MEDS: Insulin LISPRO 300 UNITS/3 ML VIAL SQ SCH ×5 (08:13→17:41)
[2018-12-15 08:21] LABS: Calcium 8.4 mg/dL (8.6-10.3); Magnesium 1.7 mg/dL (1.6-2.6); Phosphorous 2.4 mg/dL (2.7-4.5); Potassium 4.2 mEq/L (3.5-5.1)
[2018-12-15] MEDS ORDERED: Insulin DETEMIR 100 UNIT/ML X5UNITS SQ SCH ×2 (09:00→21:00)
--- NOTE | 2018-12-15 13:40 | Internal Med Progress Note ---
Hospitalist Progress Note - Encounter Date of Encounter: 12/15/18 Time of Encounter: 13:38 - Subjective Interval History: I have seen and evaluated the patient at bedside. patient reports feeling week and having some discomfort on her right hand. I discussed with the patient about potentially going to rehab but she reported that she wants to go home because she has had bad experience at multiple rehabilitation facility. - Exam Vitals: Temp Pulse Resp BP Pulse Ox 98.4 F 87 16 172/88 99 12/15/18 11:13 12/15/18 11:13 12/15/18 11:13 12/15/18 11:13 12/15/18 11:13 Exam: Vitals: Reviewed General: Alert and oriented x4. in mild distress due to right hand edema Cardiovascular: RRR, normal S1 & S2, no rubs, murmurs or gallops. Lungs: CTA b/l, no wheezes or crackles. Abdomen: Obese, soft, non-tender, no rigidity. 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 Neurological: No focal neurological deficits Rest of the physical exam is non contributory - Assessment and Plan (1) Type 2 diabetes mellitus with hyperosmolar nonketotic hyperglycemia Current Visit: Yes Status: Resolved Assessment and Plan: blood sugar sub-optimally controlled. levemir increased to 20 units BID and lispro to 8 unis ac. continue lispro medium dose sliding scale. carbs controlled diet. (2) CKD (chronic kidney disease), stage IV Current Visit: No Status: Chronic Assessment and Plan: kidney function at baseline discontinue IV hydration. avoid nephrotoxic medications will re-assess kidney function tomorrow morning. (3) Obesity (BMI 30-39.9) Current Visit: No Status: Chronic (4) Bipolar depression Current Visit: No Status: Chronic Assessment and Plan: Continue lamotrigine 200mg/PO BID. (5) HTN (hypertension) Current Visit: No Status: Chronic Assessment and Plan: BP is suboptimally controlled Plan continue isosorbide 10 mg by mouth 3 times a day. hydralazine increased to 50mg/PO TID will monitor and adjust the medications accordingly (6) Hx of deep venous thrombosis Current Visit: No Status: Chronic Assessment and Plan: continue apixaban 2.5mg/PO BID (7) Anxiety and depression Current Visit: No Status: Chronic Assessment and Plan: On escitalopram 10 mg by mouth daily. (8) Seizure disorder Current Visit: No Status: Chronic Assessment and Plan: on lamotrigine 200 mg by mouth twice a day, and levetiracetam 750mg/PO BID. (9) Fall Current Visit: No Status: Chronic Assessment and Plan: patient does not want to go to a rehabilitation facility. PT/OT ordered (10) Acute metabolic encephalopathy Current Visit: Yes Status: Resolved (11) Elevated troponin Current Visit: Yes Status: Ruled-out (12) HLD (hyperlipidemia) Current Visit: No Status: Chronic Assessment and Plan: continue on atorvastatin 40 mg by mouth at bedtime. DVT Prophylaxis: patient is on an oral anticoagulant due to Hx of dVT - Summary of Assessment and Plan Summary of Assessment and Plan: patient to remain in the hospital for better glycemic control. - Time Spent with Patient Total time spent is greater than 50% in coordination of care (as documented) at patient's floor/unit and/or counseling patient: Greater than 35 minutes (40) Plan of Care Discussed with: patient (and the nurse.) Internal Medicine: Result - Labs CBC & Chem 7: 12/15/18 06:22 12/15/18 06:22 Labs: Short CBC 12/15/18 Range/Units 06:22 WBC 7.9 (4.3-11.1) K/mcL Hgb 8.8 L (11.5-15.4) g/dL Hct 29.4 L (35.3-44.9) % Plt Count 229 (140-400) K/mcL Neutrophils # 5.3 (1.6-8.9) K/mcL BMP 12/14/18 12/15/18 20:31 06:22 Sodium 137 137 Potassium 4.5 4.2 Chloride 105 109 H Carbon Dioxide 24 22 L BUN 20 19 Creatinine 1.84 H 1.72 H Glucose 341 H 250 H Calcium 8.6 8.4 L - ABG Interpretation ABG results: ABG ABG pH 7.41 pH Units (7.32-7.45) 12/13/18 17:36 ABG pCO2 40 mmHg (35-45) 12/13/18 17:36 ABG pO2 63 mmHg (85-104) L 12/13/18 17:36 ABG O2 Saturation 92 % (95-98) L 12/13/18 17:36 PT/INR, D-dimer PT 11.6 Seconds (9.4-12.1) 12/13/18 17:50 - Impressions Impressions Echocardiogram 12/14/18 12:00 Impressions: LVEF 65%. Mild left ventricular diastolic dysfunction. Normal right ventricular structure and function. No significant valvular dysfunction. No evidence of pulmonary hypertension. Left Ventricular Wall Motion: Rest Echo Findings All wall segments showed normal motion. Findings: Study Quality * Technically adequate exam. ECG Findings * Normal sinus rhythm. Left Ventricle * LVEF 65%. * Normal LV chamber size, wall thickness and systolic function. * Mild left ventricular diastolic dysfunction. Right Ventricle * Normal right ventricular structure and function. Left Atrium * Normal left atrial size. Right Atrium * Normal right atrial size. Interatrial Septum * Interatrial septum not well evaluated. * No evidence of PFO by color Doppler. Aortic Valve * Trileaflet aortic valve with normal function. * No aortic stenosis. * No aortic regurgitation. Mitral Valve * Moderate mitral annular calcification * Mildly calcified mitral valve leaflets. * No mitral stenosis. * No mitral regurgitation. Tricuspid Valve * Normal tricuspid valve structure. * No tricuspid stenosis. * No tricuspid regurgitation. * Unable to estimate RVSP due to lack of TR jet. * No evidence of pulmonary hypertension. * Estimated RA pressure is 3 mmHg. Pulmonic Valve * Pulmonic valve is not well visualized. * No pulmonic stenosis. * No pulmonic regurgitation. Aorta * Normally sized aortic root. Pericardium * The pericardium appears normal. * Appearance is consistent with a {type} mitral valve replacement. Function appears {function{. IVC * The IVC is not dilated. * > 50% respiratory change Consult Discharge Plan - Plan Referrals: Ariel Funes MD [Partnered Physician] - (sent web request on 1121 on 12-14-18 ) (5) HTN (hypertension) Qualifiers: Hypertension type: unspecified Qualified Code(s): I10 - Essential (primary) hypertension (9) Fall Qualifiers: Encounter type: initial encounter Qualified Code(s): W19.XXXA - Unspecified fall, initial encounter (12) HLD (hyperlipidemia) Qualifiers: Hyperlipidemia type: mixed hyperlipidemia Qualified Code(s): E78.2 - Mixed hyperlipidemia
[2018-12-15] MEDS ORDERED: Insulin LISPRO 300 UNITS/3 ML VIAL SQ SCH (17:00)
[2018-12-16] MEDS: hydrALAZINE 25 MG TABLET PO SCH (00:30)
[2018-12-16 06:59] LABS: Calcium 8.7 mg/dL (8.6-10.3); Magnesium 1.7 mg/dL (1.6-2.6); Phosphorous 2.3 mg/dL (2.7-4.5); Potassium 4.2 mEq/L (3.5-5.1)
[2018-12-16] MEDS ORDERED: hydrALAZINE 25 MG TABLET PO SCH (08:00)
[2018-12-16] MEDS: levETIRAcetam 250 MG TABLET PO SCH (08:37)
[2018-12-16] MEDS: Apixaban 2.5 MG TABLET PO SCH (08:37)
[2018-12-16] MEDS: Insulin LISPRO 300 UNITS/3 ML VIAL SQ SCH ×4 (08:38→12:50)
[2018-12-16] MEDS: lamoTRIgine 100 MG TABLET PO SCH (08:38)
[2018-12-16] MEDS ORDERED: Insulin DETEMIR 100 UNIT/ML X5UNITS SQ SCH (09:00)
[2018-12-16 10:30] VITALS: BP 151/73
--- NOTE | 2018-12-16 12:18 | Discharge Summary ---
Orders not resulted at time of discharge: Pending orders 12/13/18 17:45 Culture,Blood [BC] Stat Date of Encounter: 12/16/18 Time of Encounter: 12:15 - Discharge Diagnosis (1) Type 2 diabetes mellitus with hyperosmolar nonketotic hyperglycemia Priority: Primary Status: Resolved (2) CKD (chronic kidney disease), stage IV Priority: Secondary Status: Chronic (3) Obesity (BMI 30-39.9) Priority: Secondary Status: Chronic (4) Bipolar depression Priority: Secondary Status: Chronic (5) HTN (hypertension) Priority: Secondary Status: Chronic Qualifiers: Hypertension type: unspecified Qualified Code(s): I10 - Essential (primary) hypertension (6) Hx of deep venous thrombosis Priority: Secondary Status: Chronic (7) Anxiety and depression Priority: Secondary Status: Chronic (8) Seizure disorder Priority: Secondary Status: Chronic (9) Fall Priority: Secondary Status: Chronic Qualifiers: Encounter type: initial encounter Qualified Code(s): W19.XXXA - Unspecified fall, initial encounter (10) Acute metabolic encephalopathy Priority: Secondary Status: Resolved (11) Elevated troponin Priority: Secondary Status: Ruled-out (12) HLD (hyperlipidemia) Priority: Secondary Status: Chronic Qualifiers: Hyperlipidemia type: mixed hyperlipidemia Qualified Code(s): E78.2 - Mixed hyperlipidemia Hospital course: Ms. Valladares is a 63 year old female PMH of diabetes, renal disease, hyperlipidemia, hypertension, and DVT presents to ER from home. She is known to be noncompliant and has a hx of frequent falls. She was found on the floor at home unknown for how long she was on the floor. Patient reports only using 2 units of her short acting insulin the day when she was brought to the ED. In the ED patient found to be on HHS. patient managed with Iv fluids and IV insulin with resolution of her symptoms. an skeletal survey was done to r/o fracture or PRISONER CLASSIFICATION INTERVIEWER abnormalities: unremarkable. Patient refused going to SNF/ECF. Patient is hemodynamically stable to be discharge. Patient is a potential readmission due to patient lack of inside about how to manage her chronic conditions at home and also being non compliant with her medications. - Time Spent with Patient Total time spent providing and/or coordinating discharge services: Time spent: Greater than 30 minutes (35) - Discharge Medications Prescriptions: Continued Acetaminophen [Tylenol] 650 mg PO Q6HR PRN PRN Reason: Pain Epoetin Abdifatah [Procrit] 10,000 unit IM Q14D Albuterol Sulfate [Albuterol Inhaler] 2 puff IH Q6H PRN #1 inhaler PRN Reason: Shortness Of Breath Amlodipine Besylate 5 mg PO DAILY #30 tablet Insulin NPH, HUMAN [HumuLIN N] 25 units SQ BID 30 Days vial Gabapentin [Neurontin] 100 mg PO BID #60 capsule Nystatin POWDER [Nystop] 1 appl TP TID PRN #1 bottle PRN Reason: Skin Irritation Benzonatate [Tessalon] 200 mg PO TID PRN #60 capsule PRN Reason: Cough Cholecalciferol (D-3) [Vitamin D] 1,000 unit PO DAILY #30 tablet Paricalcitol [Zemplar] 1 mcg PO DAILY Furosemide [Lasix] 20 mg PO DAILY Atorvastatin [Lipitor] 40 mg PO HS lamoTRIgine [Lamotrigine] 200 mg PO BID levETIRAcetam [Roweepra] 750 mg PO BID Isosorbide DInitrate [Isordil] 10 mg PO TID hydrALAZINE [HydrALAZINE] 75 mg PO TID Ferrous Sulfate [Iron] 325 mg PO BIDWM Escitalopram [Lexapro] 10 mg PO DAILY Apixaban [Eliquis] 2.5 mg PO BID Insulin ASPART [Novolog Flexpen] 0 unit SQ TIDAC Glucagon,Human Recombinant [Glucagon Emergency Kit] 1 mg IM ONCE PRN PRN Reason: Hypoglycemia Home Medications: Acetaminophen [Tylenol] 650 mg PO Q6HR PRN 11/19/18 [History] Epoetin Abdifatah [Procrit] 10,000 unit IM Q14D 11/19/18 [History] Albuterol Sulfate [Albuterol Inhaler] 2 puff IH Q6H PRN #1 inhaler 11/21/18 [Rx] Amlodipine Besylate 5 mg PO DAILY #30 tablet 11/21/18 [Rx] Benzonatate [Tessalon] 200 mg PO TID PRN #60 capsule 11/21/18 [Rx] Cholecalciferol (D-3) [Vitamin D] 1,000 unit PO DAILY #30 tablet 11/21/18 [Rx] Gabapentin [Neurontin] 100 mg PO BID #60 capsule 11/21/18 [Rx] Insulin NPH, HUMAN [HumuLIN N] 25 units SQ BID 30 Days vial 11/21/18 [Rx] Nystatin POWDER [Nystop] 1 appl TP TID PRN #1 bottle 11/21/18 [Rx] Apixaban [Eliquis] 2.5 mg PO BID 12/09/18 [History] Atorvastatin [Lipitor] 40 mg PO HS 12/09/18 [History] Escitalopram [Lexapro] 10 mg PO DAILY 12/09/18 [History] Ferrous Sulfate [Iron] 325 mg PO BIDWM 12/09/18 [History] Furosemide [Lasix] 20 mg PO DAILY 12/09/18 [History] Isosorbide DInitrate [Isordil] 10 mg PO TID 12/09/18 [History] Paricalcitol [Zemplar] 1 mcg PO DAILY 12/09/18 [History] hydrALAZINE [HydrALAZINE] 75 mg PO TID 12/09/18 [History] lamoTRIgine [Lamotrigine] 200 mg PO BID 12/09/18 [History] levETIRAcetam [Roweepra] 750 mg PO BID 12/09/18 [History] Glucagon,Human Recombinant [Glucagon Emergency Kit] 1 mg IM ONCE PRN 12/13/18 [History] Insulin ASPART [Novolog Flexpen] 0 unit SQ TIDAC 12/13/18 [History] Allergies/Adverse Reactions: Allergy/AdvReac Type Severity Reaction Status Date / Time acetaminophen [From Percocet] Allergy Hallucinati Verified 12/11/18 11:38 ng adhesive Allergy Rash Verified 12/11/18 11:38 codeine Allergy Rash Verified 12/11/18 11:38 ibuprofen [From Advil] Allergy Rash Verified 12/11/18 11:38 NSAIDS (Non-Steroidal Allergy Rash Verified 12/11/18 11:38 Anti-Inflamma Glucagon AdvReac Confusion Verified 12/11/18 11:38 oxycodone [From Percocet] AdvReac Hallucinati Verified 12/11/18 11:38 ng Date of admission: 12/13/18 22:07 Primary care physician: PCP NONE Consults: 12/13/18 21:42 Consult to Occupational Therapy [CONS] Routine Comment: Evaluate, develop and implement POC Reason for Consult: falls, weakness Does patient have active BEDREST order?: No Is patient medically & hemodynamically stable?: Yes Patient assessed for mobility or mobilized this visit?: No Consult to Physical Therapy [CONS] Routine Comment: Evaluate, develop and implement POC Reason for Consult: falls, weakness Does patient have active BEDREST order?: No Is patient medically & hemodynamically stable?: Yes Patient assessed for mobility or mobilized this visit?: No 12/14/18 14:14 Consult to Nurse Navigator [CONS] Routine Comment: Diabetes - Constitutional Vitals: Temp Pulse Resp BP Pulse Ox 98.2 F 95 15 151/73 97 12/16/18 10:29 12/16/18 10:29 12/16/18 10:29 12/16/18 10:29 12/16/18 10:29 Exam: Vitals: Reviewed General: Alert and oriented x4. No acute distress Cardiovascular: RRR, normal S1 & S2, no rubs, murmurs or gallops. Lungs: CTA b/l, no wheezes or crackles. Abdomen: Obese, soft, non-tender, no rigidity. 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 Neurological: No focal neurological deficits Rest of the physical exam is non contributory - Patient Status Disposition: Home Health Service Condition: Fair Functional capacity at discharge: independent ambulation Overall status at discharge: patient is back to baseline - Discharge Instructions Follow Up With: Ariel Funes MD [Partnered Physician] - (sent web request on 1121 on 12-14-18) - Diet and Activity Activity: as per physical therapy, resume usual activities as tolerated Diet: diabetic diet, low salt diet
--- NOTE | 2018-12-16 12:25 | Physician Discharge Referral ---
Home Health/Hosp Referral Info Transfer to: Home Health - Diagnosis (1) Type 2 diabetes mellitus with hyperosmolar nonketotic hyperglycemia Priority: Primary Status: Resolved (2) CKD (chronic kidney disease), stage IV Priority: Secondary Status: Chronic (3) Obesity (BMI 30-39.9) Priority: Secondary Status: Chronic (4) Bipolar depression Priority: Secondary Status: Chronic (5) HTN (hypertension) Priority: Secondary Status: Chronic (6) Hx of deep venous thrombosis Priority: Secondary Status: Chronic (7) Anxiety and depression Priority: Secondary Status: Chronic (8) Seizure disorder Priority: Secondary Status: Chronic (9) Fall Priority: Secondary Status: Chronic (10) Acute metabolic encephalopathy Priority: Secondary Status: Resolved (11) Elevated troponin Priority: Secondary Status: Ruled-out (12) HLD (hyperlipidemia) Priority: Secondary Status: Chronic - Respiratory Orders None Smoking Cessation: Smoking cessation has been advised. For more information, call the [place] Tobacco Quit Line at 1-877-ZIRX-NOW. - Diet/Nutrition Diet/Nutrition Orders: Regular - Activity Activity Orders: Ambulate - Services Needed Following services are medically necessary services: Nursing, Home Health Aide, Physical Therapy, Occupational Therapy - Transfer Medications Home Medications: Acetaminophen [Tylenol] 650 mg PO Q6HR PRN 11/19/18 [History] Epoetin Abdifatah [Procrit] 10,000 unit IM Q14D 11/19/18 [History] Albuterol Sulfate [Albuterol Inhaler] 2 puff IH Q6H PRN #1 inhaler 11/21/18 [Rx] Amlodipine Besylate 5 mg PO DAILY #30 tablet 11/21/18 [Rx] Benzonatate [Tessalon] 200 mg PO TID PRN #60 capsule 11/21/18 [Rx] Cholecalciferol (D-3) [Vitamin D] 1,000 unit PO DAILY #30 tablet 11/21/18 [Rx] Gabapentin [Neurontin] 100 mg PO BID #60 capsule 11/21/18 [Rx] Insulin NPH, HUMAN [HumuLIN N] 25 units SQ BID 30 Days vial 11/21/18 [Rx] Nystatin POWDER [Nystop] 1 appl TP TID PRN #1 bottle 11/21/18 [Rx] Apixaban [Eliquis] 2.5 mg PO BID 12/09/18 [History] Atorvastatin [Lipitor] 40 mg PO HS 12/09/18 [History] Escitalopram [Lexapro] 10 mg PO DAILY 12/09/18 [History] Ferrous Sulfate [Iron] 325 mg PO BIDWM 12/09/18 [History] Furosemide [Lasix] 20 mg PO DAILY 12/09/18 [History] Isosorbide DInitrate [Isordil] 10 mg PO TID 12/09/18 [History] Paricalcitol [Zemplar] 1 mcg PO DAILY 12/09/18 [History] hydrALAZINE [HydrALAZINE] 75 mg PO TID 12/09/18 [History] lamoTRIgine [Lamotrigine] 200 mg PO BID 12/09/18 [History] levETIRAcetam [Roweepra] 750 mg PO BID 12/09/18 [History] Glucagon,Human Recombinant [Glucagon Emergency Kit] 1 mg IM ONCE PRN 12/13/18 [History] Insulin ASPART [Novolog Flexpen] 0 unit SQ TIDAC 12/13/18 [History] Allergies/Adverse Reactions: 3 Allergy/AdvReac Type Severity Reaction Status Date / Time acetaminophen [From Percocet] Allergy Hallucinati Verified 12/11/18 11:38 ng adhesive Allergy Rash Verified 12/11/18 11:38 codeine Allergy Rash Verified 12/11/18 11:38 ibuprofen [From Advil] Allergy Rash Verified 12/11/18 11:38 NSAIDS (Non-Steroidal Allergy Rash Verified 12/11/18 11:38 Anti-Inflamma Glucagon AdvReac Confusion Verified 12/11/18 11:38 oxycodone [From Percocet] AdvReac Hallucinati Verified 12/11/18 11:38 ng Certification: Further, I certify that my clinical findings support that this patient is homebound (i.e. absences from home require considerable and taxing effort and are for medical reasons or muslim services or infrequently or short duration when for other reasons) because: Homebound Reason: Patient requires assistance of a person or device to safely leave home Attestation: My signature below is to certify that this patient is under my care and that I, or nurse practitioner, or a physician's miller head assistant wet process working with me, has a [id number] encounter with this patient.
== END 2018-12-16 15:45 | disposition home health service (06) ==
LOC: 2NNU 17:10 → EMEROOARM 17:10 → 2NNU 12-14 00:43 → SUATTDRO 12-14 03:55 → 3ANU 12-15 01:38
PROVIDERS: ADMIT Pediatrics; ATTEND Internal Medicine